=== PATIENT | female | born 1935 | race Caucasian/White ===

== ENCOUNTER 2016-09-10 10:28 | Outpatient (CLI) | payer MEDICARE, BC | END 2016-09-10 10:29 | disposition home or self-care (01) | DX: Z12.31 Encounter for screening mammogram for malignant neoplasm of breast (principal); Z85.3 Personal history of malignant neoplasm of breast; Z90.12 Acquired absence of left breast and nipple ==

== ENCOUNTER 2017-06-26 08:51 | Outpatient (CLI) | payer MEDICARE, BC | END 2017-06-26 08:52 | disposition home or self-care (01) | LOC: LAB 08:51 | PROVIDERS: ATTEND Physician Assistant Medical | DX: L29.8 Other pruritus (principal); R21 Rash and other nonspecific skin eruption ==

== ENCOUNTER 2017-07-01 08:51 | Outpatient (CLI) | payer MEDICARE, BC ==
--- NOTE | 2017-07-01 09:42 | XRAY Report ---
EXAM: CHEST RADIOGRAPHY EXAM DATE: 07/01/2017 09:21 AM. CLINICAL HISTORY: HISTORY OF BREAST AND BLADDER CA. COMPARISON: None. TECHNIQUE: 2 views. FINDINGS: There are pulmonary cystic changes diffusely. There are chronic appearing interstitial changes. No fo denisha pulmonary parenchymal is seen. No pneumothorax or pleural effusion. Mediastinum appears unremarka ble, apart from calcification and tortuosity of the thoracic aorta. IMPRESSION: COPD and chronic appearing interstitial changes. [facility] Referring Provider Line: [phone] SITE ID: [id number]
--- NOTE | 2017-07-01 09:56 | XRAY Report ---
EXAM: ABDOMEN RADIOGRAPHY EXAM DATE: 07/01/2017 09:21 AM. CLINICAL HISTORY: HISTORY OF BREAST AND BLADDER CA. COMPARISON: None. TECHNIQUE: 1 view. FINDINGS: Bowel Gas Pattern: Within normal limits. No dilated loops. Other: Calcifications overlie the left so as an right pelvis. Nonspecific, but cannot exclude urologi c calcifications. IMPRESSION: Cannot exclude urologic calcifications. Otherwise no acute findings. [facility] Referring Provider Line: [phone] SITE ID: [id number]
== END 2017-07-01 08:52 | disposition home or self-care (01) ==
LOC: DI 08:51
PROVIDERS: ATTEND Physician Assistant Medical
DX: Z85.3 Personal history of malignant neoplasm of breast (principal); Z85.51 Personal history of malignant neoplasm of bladder; J44.9 Chronic obstructive pulmonary disease, unspecified; R91.8 Other nonspecific abnormal finding of lung field
CPT/HCPCS: 71020; 74000

== ENCOUNTER 2017-10-20 10:46 | Outpatient (CLI) | payer MEDICARE, BC ==
--- NOTE | 2017-10-21 12:49 | Mammography Report ---
DIGITAL SCREENING MAMMOGRAM: 10/20/2017 INDICATION: An 82-year-old with personal history of left breast cancer, status post mastectomy, family history of breast cancer. TECHNIQUE: Right CC and MLO views were obtained. COMPARISON: 09/2016, 08/2015, 08/2014, 08/2013, 08/2012, 08/2011, 05/2010. FINDINGS: The right breast again demonstrates scattered fibroglandular densities. Coarse and punctate, typically benign calcifications are present. No suspicious masses, clustered microcalcifications, or regions of architectural distortion are identified. IMPRESSION: BENIGN FINDINGS. RECOMMENDATION: Routine annual screening unless otherwise clinically indicated. BIRADS CATEGORY 2 - BENIGN FINDINGS. STANDARD QUALIFYING STATEMENTS: 1. This examination was reviewed with the aid of Computer-Aided Detection (CAD). 2. A negative or benign imaging report should not delay biopsy if clinically suspicious findings are present. Consider surgical consultation if warranted. More than 5% of cancers are not identified by imaging. 3. Dense breasts may obscure an underlying neoplasm. TD: 10/21/2017 12:48
== END 2017-10-20 10:47 | disposition home or self-care (01) ==
LOC: DI 10:46
PROVIDERS: ATTEND Family Medicine
DX: Z12.31 Encounter for screening mammogram for malignant neoplasm of breast (principal); Z85.3 Personal history of malignant neoplasm of breast; Z80.3 Family history of malignant neoplasm of breast; Z90.12 Acquired absence of left breast and nipple

== ENCOUNTER 2020-07-17 14:19 | Outpatient (CLI) | payer MEDICARE, BC ==
--- OUTSIDE RECORDS SUMMARY | 2020-07-24 00:54 | EXTERNAL MEDICAL SUMMARY RPT | Continuity of Care Document ---
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 2013-08-31 15:05 SCRN MAMMO-HIGH RISK PT, MALIGNANT [facility] NEOPLASM OF BREAST 2014-09-05 16:12 HX OF BREAST MALIGNANCY [facility] 2014-09-05 16:12 ACQUIRED ABSENCE OF BREAST AND [facility] NIPPLE 2014-09-05 16:12 SCRN MAMMO-HIGH RISK PT, MALIGNANT [facility] NEOPLASM OF BREAST 2015-09-09 11:35 ENCNTR SCREEN MAMMOGRAM FOR [facility] MALIGNANT NEOPLASM OF BREAST 2015-09-09 11:35 FAMILY HISTORY OF MALIGNANT [facility] NEOPLASM OF BREAST 2015-09-09 11:35 ACQUIRED ABSENCE OF LEFT BREAST [facility] AND NIPPLE 2016-09-10 10:28 ENCNTR SCREEN MAMMOGRAM FOR [facility] MALIGNANT NEOPLASM OF BREAST 2016-09-10 10:28 PERSONAL HISTORY OF MALIGNANT [facility] NEOPLASM OF BREAST 2016-09-10 10:28 ACQUIRED ABSENCE OF LEFT BREAST [facility] AND NIPPLE 2017-06-26 08:51 OTHER PRURITUS [facility] 2017-06-26 08:51 RASH AND OTHER NONSPECIFIC SKIN [facility] ERUPTION 2017-07-01 08:51 CHRONIC OBSTRUCTIVE PULMONARY [facility] DISEASE, UNSPECIFIED 2017-07-01 08:51 OTHER NONSPECIFIC ABNORMAL FINDING [facility] OF LUNG FIELD 2017-07-01 08:51 PERSONAL HISTORY OF MALIGNANT [facility] NEOPLASM OF BREAST 2017-07-01 08:51 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 2017-10-20 10:46 ENCNTR SCREEN MAMMOGRAM FOR [facility] MALIGNANT NEOPLASM OF BREAST 2017-10-20 10:46 FAMILY HISTORY OF MALIGNANT [facility] NEOPLASM OF BREAST 2017-10-20 10:46 PERSONAL HISTORY OF MALIGNANT [facility] NEOPLASM OF BREAST 2017-10-20 10:46 ACQUIRED ABSENCE OF LEFT BREAST [facility] AND NIPPLE 2020-05-21 10:34 [facility], [facility] 2020-05-21 10:34 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], [facility]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 10:34 Other eosinophilia [facility] 2020-05-21 10:34 Interstitial pulmonary disease, [facility] 2020-05-28 08:54 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], [facility] unspecified 2020-05-28 08:54 Interstitial pulmonary disease, [facility] 2020-05-28 08:54 [facility] 2020-06-11 09:40 Eosinophilia, [facility] 2020-06-11 09:40 Other eosinophilia [facility] 2020-06-11 09:40 [facility] Allergies date description facility NO KNOWN ENVIRONMENTAL ALLERGIES [facility] CONTRAST MEDIUM [facility] Medic al [place] DOXYCYCLINE [facility] Center SULFA (SULFONAMIDE ANTIBIOTICS) [facility] NO ALLERGY INFORMATION AVAILABLE [facility] OPIOIDS - MORPHINE ANALOGUES [facility] NO KNOWN ALLERGIES [facility] Medic al Center CODEINE [facility] Center CLINDAMYCIN [facility] Medic al [place] AMOXICILLIN [facility] Center iodine [facility] Center latex [facility] Medic [facility] NO KNOWN ENVIRONMENTAL ALLERGIES [facility] SULFA ANTIBIOTICS [facility] Medic al [place] NO ALLERGY INFORMATION ON FILE [facility] IBUPROFEN [facility] Center PENICILLIN [facility] al Center SULFA (SULFONAMIDE ANTIBIOTICS) [facility] NO KNOWN ALLERGIES [facility] CODEINE [facility] HYDROCODONE [facility] DOXYCYCLINE [facility] DAPSONE [facility] CEFTRIAXONE [facility] LATEX [facility] Penicillins [facility] iodine [facility] tramadol [facility] latex [facility] Results Social History date description facility [id number]
== END 2020-07-17 14:20 | disposition critical access hospital (66) ==
LOC: EMS 14:19
PROVIDERS: ATTEND Surgery
DX: M25.551 Pain in right hip (principal)
CPT/HCPCS: A0425; A0427

== ENCOUNTER 2020-07-17 14:36 | Inpatient (IN) | payer MEDICARE, BC ==
--- NOTE | 2020-07-17 14:44 | ED Physician Documentation ---
PD HPI LOWER EXT INJURY - Stated complaint Stated Complaint: FALL - History obtained from History obtained from: Patient - Additional information Additional information: 85-year-old woman with a history of skin condition and a 5 cm AAA yet to be addressed who had gotten a new car and she was out in the parking lot at [facility] and looking under the car and then she thinks she tripped over her feet and landed on her right side. She has pain in the area of the right hip and pelvis down to the knee. But declines further pain medication on arrival as she had 50 mcg of fentanyl on the way in. She is sure she did not hit her head or hurt her neck. 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 - Present Medications Home Medications: Ambulatory Orders Medication Instructions Recorded Confirmed Aspirin [Aspirin EC] 81 mg PO DAILY 07/17/20 07/17/20 - Allergies Allergies/Adverse Reactions: Allergies Allergy/AdvReac Type Severity Reaction Status Date / Time iodine AdvReac Itching Verified 07/17/20 15:08 latex AdvReac Rash Unverified 12/18/14 12:40 PD ED PE NORMAL - Vitals Vital signs reviewed: Yes - General General: Alert and oriented X 3, No acute distress - HEENT HEENT: PERRL, EOMI - Neck Neck: Supple, no meningeal sign, No bony TTP - Cardiac Cardiac: RRR, No murmur - Respiratory Respiratory: No respiratory distress, Clear bilaterally - Abdomen Abdomen: Non tender - Back Back: No CVA TTP, No spinal TTP - Derm Derm: Normal color, Warm and dry - Extremities Extremities: No edema, No calf tenderness / cord, Other (The right leg is shortened, holding it slightly flexed and externally rotated. Gentle internal rotation results in pain in the groin.) - Neuro Neuro: Alert and oriented X 3, Normal speech - Psych Psych: Normal mood, Normal affect Results - Vitals Vitals: Vital Signs - 24 hr 07/17/20 07/17/20 07/17/20 14:39 15:04 15:24 Temperature 37.0 C Heart Rate 79 72 78 Respiratory 16 16 20 Rate Blood Pressure 217/81 H 172/93 H 170/74 H O2 Saturation 98 96 96 Oxygen O2 Source Room air - EKG (time done) 1508 Rate: Rate (enter#) (72) Rhythm: NSR [place]: Normal Intervals: Normal NH QRS: LVH Ischemia: Normal ST segments Computer interpretation: Agree with computer - Labs Labs: Laboratory Tests 07/17/20 07/17/20 15:17 15:17 WBC 11.6 H RBC 4.38 Hgb 12.4 Hct 40.5 MCV 92.5 MCH 28.3 MCHC 30.6 L RDW 13.3 Plt Count 211 MPV 9.6 Manual Slide Review Indicated Sodium 137 Potassium 4.1 Chloride 104 Carbon Dioxide 25 Anion Gap 8.0 BUN 29 H Creatinine 0.9 Estimated GFR (MDRD) 60 L Glucose 108 H Calcium 9.2 PD MEDICAL DECISION MAKING - ED course ED course: 85-year-old woman with history of known AAA not yet surgically addressed with history of hypertension as well who tripped over her own feet with an isolated right hip injury. [employer] respiratory panel ordered to rapidly test specifically for COVID-19 in this patient who is expected to be hospitalized She had a trip and fall onto the right hip and has a right intertrochanteric fracture. By history and physical is is an isolated injury. She has a history of a AAA and I discussed the case with Cezar Basilio our WAREHOUSE LOGISTICS MANAGER by phone who does not feel like that would create a reason that she could not have surgery here. Also discussed the case by phone with Dr. Walter Bearden the orthopedist who would like her n.p.o. after midnight to have fixation tomorrow and finally with Dr. Del Valle at 3:58 PM for admission. Departure - Departure Disposition: [facility] DC/Xfer Clinical Impression: Fracture, intertrochanteric, right femur Condition: Serious
[2020-07-17] MEDS ORDERED: METOPROLOL TARTRATE 50 MG TABLET PO STA (14:59)
[2020-07-17] MEDS ORDERED: lisinopriL 5 MG TABLET PO STA (14:59)
[2020-07-17 15:26] LABS: BASOPHILS # (AUTO) 0.1 10^3/uL (0.0-0.1); BASOPHILS % (AUTO) 0.6 %; EOSINOPHILS # (AUTO) 1.8 10^3/uL (0.0-0.7); EOSINOPHILS % (AUTO) 15.7 %; HGB - HEMOGLOBIN 12.4 g/dL (12.0-16.0); LYMPHOCYTES % (AUTO) 8.3 %; MEAN CORPUSCULAR HEMOGLOBIN 28.3 pg (27.0-31.0); MEAN CORPUSCULAR HGB CONC 30.6 g/dL (32.0-36.0); MEAN CORPUSCULAR VOLUME 92.5 fL (81.0-99.0); MEAN PLATELET VOLUME 9.6 fL (7.9-10.8); MONOCYTES # (AUTO) 0.9 10^3/uL (0.0-1.0); MONOCYTES % (AUTO) 7.3 %; NEUTROPHILS # (AUTO) 7.9 10^3/uL (1.5-6.6); NEUTROPHILS % (AUTO) 67.5 %; PLT - PLATELET COUNT 211 10^3/uL (130-450); RED BLOOD COUNT 4.38 10^6/uL (4.20-5.40); RED CELL DISTRIBUTION WIDTH 13.3 % (12.0-15.0); WHITE BLOOD COUNT 11.6 x10^3/uL (4.8-10.8)
--- NOTE | 2020-07-17 15:32 | XRAY Report ---
PROCEDURE: Femur 2V RT INDICATIONS: hip inj TECHNIQUE: views of the femur were acquired. COMPARISON: None. FINDINGS: Bones: No dislocations. No suspicious bony lesions. There is a intertrochanteric right hip fracture , with the proximal femur elevated along the fracture plane and with mild displacement of the lesser trochanteric fracture fragment medially by approximately 7 mm. Soft tissues: No suspicious soft tissue calcifications or masses. IMPRESSION: Acute moderately displaced intertrochanteric right hip fracture. No knee joint trauma is found but th ere is medial compartment moderate knee joint osteoarthritis. Reviewed by: Johann Zuleta MD on 07/17/2020 3:31 PM PST Approved by: Johann Zuleta MD on 07/17/2020 3:31 PM PST Station ID: [id number]
--- NOTE | 2020-07-17 15:36 | XRAY Report ---
PROCEDURE: Hip w/Pelvis 2-3V RT INDICATIONS: hip inj TECHNIQUE: AP pelvis with lateral view(s) of the unilateral right hip(s). COMPARISON: None. FINDINGS: Bones: No dislocations. Pelvic ring appears intact. No suspicious bony lesions. There is a inter trochanteric superiorly subluxed mildly displaced right hip fracture, without trauma to the pelvis el sewhere. Soft tissues: The visualized bowel gas pattern is normal. . There is a thin band of calcification p ossibly representing aortic aneurysm, seen to the left of midline. IMPRESSION: The intertrochanteric acute right hip fracture has been previously identified. The thin band of calcification unusually leftward from the spine raises concern for significant size mid to di stal abdominal aortic aneurysm. Follow-up by ultrasound through this area to assess for aneurysm appe ars warranted. Reviewed by: Johann Zuleta MD on 07/17/2020 3:35 PM PST Approved by: Johann Zuleta MD on 07/17/2020 3:35 PM PST Station ID: [id number]
[2020-07-17 15:41] LABS: CALCIUM 9.2 mg/dL (8.5-10.3); CREATININE 0.9 mg/dL (0.4-1.0)
[2020-07-17] MEDS ORDERED: ONDANSETRON 4 MG/2 ML VIAL IVP PRN (15:58)
[2020-07-17] MEDS ORDERED: SODIUM CHLORIDE FLUSH 0.9% 10 ML SYRINGE IVP PRN (15:58)
[2020-07-17] MEDS ORDERED: ONDANSETRON ODT 4 MG TABLET TL PRN (15:58)
[2020-07-17] MEDS ORDERED: PROCHLORPERAZINE 10 MG/2 ML VIAL IVP PRN (15:58)
[2020-07-17] MEDS ORDERED: MORPHINE 2 MG/ML CARPUJECT IVP PRN (15:58)
[2020-07-17 16:00] LABS: INR 1.1 (0.8-1.2); PT - PROTHROMBIN TIME 12.4 secs (9.9-12.6)
[2020-07-17 16:12] LABS: C. PNEUMONIAE- RESP PCR PANEL NOT DETECTED
[2020-07-17 16:23] LABS: DIFFERENTIAL COMMENT MANUAL=AUTO DIFF; PLATELET ESTIMATE, MANUAL NORMAL (130-450,000) (NORMAL); PLATELET MORPHOLOGY NORMAL APPEARANCE (NORMAL); RBC MORPHOLOGY (MULTIPLE) NORMAL APPEARANCE (NORMAL)
[2020-07-17] MEDS ORDERED: SODIUM CHLORIDE 0.9% 10 ML ONE (16:35)
[2020-07-17] MEDS ORDERED: ROPIVACAINE 0.5% PF 20 ML AMPULE ONE (16:35)
--- NOTE | 2020-07-17 17:06 | CONSULTATION NOTE ---
Consultation Report: Consultation for 85yo female s/p fall resulting in R hip fx. Pt found to be in mild 2/10 pain at rest, approaching 10/10 with movement. Pain control options discussed with pt including R Fascia Illiaca Block. Pt ID'd and consent obtained for peripheral nerve block and anesthetics to follow tomorrow. Pt supine, R groin prepped with chlorhexidine. US used to place 10cc 0.33%@R femoral nerve and 20cc @R fascia illaca plane. Pt states pain 0/10 at rest after 15 mins. Pt also tolerated a joyce catheter placement attempt during this time without complaint.
--- NOTE | 2020-07-17 17:09 | HISTORY & PHYSICAL EXAMINATION ---
Chief Complaint - Chief Complaint Chief Complaint: fall History of Present Illness - Admitted From Admitted From:: ER - History Obtained From Records Reviewed: [facility] History obtained from: pt Exam Limitations: no - History of Present Illness HPI Comment/Other: This is a 85-year-old woman with a Past medical history of skin rash with consisting itching, Hypertension, AAA not yet surgically addressed yet, she has plan to image study in 07/26/20 to followup with her surgeon, Who present to ER for evaluation of her fall. Patient reported she brought a new car. she park her car in the parking lot of [employer] and looking around with the car. she believe she tripped over her feet and landed on her right side. She denies any other injury. She denies loss of conscious when she had a fall. she Reported she does not hit his head or neck. She reported she has pain in the area of the right hip, and pain was down to the knee. X-ray of the hip show right intertrochanteric fracture. ER provider discussed the case with OIL AND GAS EXPLORATION TECHNICIAN who think we can go ahead to have surgery for pt. ER provider discussed the case by phone with Dr. Walter Bearden, who would like pt has n.p.o. after midnight and have fixation on tomorrow. Patient COVID-19 test was negative. Routine laboratory tests show slightly elevated WBC, Likely reactive, INR is 1.1. Patient is afebrile, patient had elevated blood pressure. Patient was given lisinopril and metoprolol blood pressure in the ER. pt denies fever, chill, chest pain, shortness of breath, abdominal pain, headache pain. We will admit this patient and plan surgery on tomorrow. 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 Her mother at age 50 from cancer. Social History Notes: Patient denies history of cigarette smoking, alcohol or drug issue. Patient is living at [place], She has 4 daughter. - POLST Patient has POLST: No Meds/Allgy - Home Medications Home Medications: Ambulatory Orders Medication Instructions Recorded Confirmed Aspirin [Aspirin EC] 81 mg PO DAILY 07/17/20 07/17/20 Gabapentin [Neurontin] 07/17/20 Losartan Potassium 25 mg PO DAILY 07/17/20 Metoprolol Succinate [Toprol Xl] 07/17/20 Omeprazole [PriLOSEC] 20 mg PO DAILY 07/17/20 hydrOXYzine HCL [Hydroxyzine HCl] 25 mg PO TID PRN 07/17/20 - Allergies Allergies/Adverse Reactions: Allergies Allergy/AdvReac Type Severity Reaction Status Date / Time iodine AdvReac Itching Verified 07/17/20 17:12 latex AdvReac Rash Unverified 07/17/20 17:12 Review of Systems - Constitutional Constitutional: denies: Fatigue, Fever, Chills, Weakness, Poor appetite, Diaphoresis - Eyes Eyes: denies: Pain, Blurred vision, Field loss, Vision loss - Ears, Nose & Throat Ears, Nose & Throat: denies: Ear pain, Tinnitus, Vertigo, Nosebleeds, Mouth lesions, Bleeding gums - Cardiovascular Cariovascular: denies: Irregular heart rate, Palpitations, Chest pain, Edema, Lightheadedness, Syncope, Exertional dyspnea, Decr. exercise tolerance - Respiratory Respiratory: denies: Cough, Sputum production, Wheezing, Hemoptysis, Orthopnea, SOB at rest, SOB with exertion - Gastrointestinal Gastrointestinal: denies: Abdominal pain, Constipation, Diarrhea, Rectal bleeding, Black stools, Bloody stools, Nausea, Vomiting, Coffee grounds emesis - Genitourinary Genitourinary: denies: Dysuria, Urgency, Incontinence - Musculoskeletal Musculoskeletal: denies: Muscle pain, Muscle aches - Integumentary Integumentary: denies: Rash, Lesions, Lumps - Neurological Neurological: denies: General weakness, Focal weakness, Headache, Dizziness, Numbness, Memory problems, Pre-existing deficit, Abnormal gait, Seizures, Incoordination, Slurred speech - Psychiatric Psychiatric: denies: Depression, Suicidal, Delusions - Endocrine Endocrine: denies: Polyuria, Polyphagia - Hematologic/Lymphatic Hematologic/Lymphatic: denies: Anemia, Petechiae, Blood clots Prior Level of Functionality: Patient is a totally independent and full function Before admission Exam - Vital Signs Vital Signs: Vital Signs x48h Temp Pulse Resp BP Pulse Ox 07/17/20 16:30 60 24 169/76 H 94 07/17/20 15:24 78 20 170/74 H 96 07/17/20 15:04 72 16 172/93 H 96 07/17/20 14:39 37.0 C 79 16 217/81 H 98 - Physical Exam General Appearance: positive: No acute distress, Alert. negative: Lethargic Eyes Bilateral: positive: Normal inspection, PERRL, No lid inflammation ENT: positive: ENT inspection nml, No signs of dehydration. negative: Purulent nasal drainage Neck: positive: Nml inspection, Trachea midline. negative: Thyromegaly, Tracheal deviation Respiratory: positive: Chest non-tender, No respiratory distress, Breath sounds nml. negative: Wheezes, Rales, Rhonchi Cardiovascular: positive: Regular rate & rhythm, Systolic murmur, Diastolic murmur. negative: No murmur, Tachycardia, Bradycardia Peripheral Pulses: positive: 2+ Abdomen: positive: Non-tender, Nml bowel sounds, No distention. negative: Tenderness, Guarding, Rebound Back: positive: Nml inspection. negative: CVA tenderness (R), CVA tenderness (L) Skin: positive: Color nml, Skin rash. negative: Warm, Dry, Cyanosis, Diaphoresis, Pallor Extremities: negative: Non-tender, Nml appearance, Pedal edema, Calf tenderness Neurologic/Psychiatric: positive: Oriented x3, Sensation nml, Mood/affect nml. negative: Weakness, Sensory loss, Facial droop, Slurred/abnml speech, Depressed mood/affect Sepsis Event Note (H) - Evaluation Current Stage of Sepsis: Ruled out Conclusion/Plan - Problem List (1) Fracture, intertrochanteric, right femur Conclusion/Plan: Patient had a mechanical fall, X-ray show right intertrochanteric fracture. Surgeon was consulted and plan to have surgery for patient on tomorrow. NPO after midnight, continue intravenous IV fluids, DVT prophylaxis is dependent on surgeon, Continue pain control (2) Pre-op evaluation Conclusion/Plan: Patient denies cardiac history, denies CVA, CHF or MD before. 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 she will have evaluation in this . ER provider called MUSIC VIDEO DIRECTOR and he believe we can continue Operation. In the physical examination, I found the patient had systolic murmur. EKG show sinus rhythm. We will do echo study before surgery. Revised cardiac risk index of Gabe criteria 0.4%, Low risk. (3) Heart murmur, systolic Conclusion/Plan: examination of Patient show heart murmur systolic. Patient denies any cardiac medical history. We will have echo study before surgery. (4) HTN (hypertension) Conclusion/Plan: Patient has elevated blood pressure. 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 She also report skin rash with itching. She is followed up by dermatology now. (6) History of abdominal aortic aneurysm (AAA) Conclusion/Plan: Patient reported she has a history AAA 5 cm, She was followed up by her vascular surgeon, she will have imaging study in this . She denies any abdominal pain or chest pain, Or back pain At this point. Advised patient follow-up with her vascular surgeon continue management - Lab Results Fish Bones: 07/17/20 15:17 07/17/20 15:17 Core Measures - Anticipated LOS I expect patient to be DC'd or transferred within 96 hours.: Yes - DVT/VTE - Prophylaxis VTE/DVT Device ordered at admit?: Yes VTE/DVT Prophylaxis med ordered at admit?: Yes
--- NOTE | 2020-07-17 17:10 | ANESTHESIA ---
Pre-Anesthesia VS, & Labs - Diagnosis R hip fx, intertrochanteric - Procedure R hip ORIF, short nail Vital Signs: Temp Pulse Resp BP Pulse Ox 37.0 C 60 24 169/76 H 94 07/17/20 14:39 07/17/20 16:30 07/17/20 16:30 07/17/20 16:30 07/17/20 16:30 Height: 5 ft 4 in Weight (kg): 53.977 kg Body Mass Index: 20.4 BMI Classification: Healthy weight - NPO >8 hours - Is Patient ?: No - Lab Results Current Lab Results: Laboratory Tests 07/17/20 15:38: Blood Type A POSITIVE, Antibody Screen NEGATIVE 07/17/20 15:17: Blood Type Recheck A POSITIVE 07/17/20 15:17: Sodium 137, Potassium 4.1, Chloride 104, Carbon Dioxide 25, Anion Gap 8.0, BUN 29 H, Creatinine 0.9, Estimated GFR (MDRD) 60 L, Glucose 108 H, Calcium 9.2 07/17/20 15:17: PT 12.4, INR 1.1 07/17/20 15:17: WBC 11.6 H, RBC 4.38, Hgb 12.4, Hct 40.5, MCV 92.5, MCH 28.3, MCHC 30.6 L, RDW 13.3, Plt Count 211, MPV 9.6, Neut # (Auto) 7.9 H, Lymph # (Auto) 1.0 L, Citrus # (Auto) 0.9, Eos # (Auto) 1.8 H, Baso # (Auto) 0.1, Absolute Nucleated RBC 0.00, Band Neuts % (Manual) Not Reportable, Abnorm Lymph % (Manual) Not Reportable, Nucleated RBC % 0.0, Neutrophils # (Manual) Not Reportable, Lymphocytes # (Manual) Not Reportable, Monocytes # (Manual) Not Reportable, Eosinophils # (Manual) Not Reportable, Basophils # (Manual) Not Reportable, Differential Comment MANUAL=AUTO DIFF, Manual Slide Review Indicated, Platelet Estimate NORMAL (130-450,000), Platelet Morphology NORMAL APPEARANCE, RBC Morph Micro Appear NORMAL APPEARANCE Lab results reviewed: Yes Fish Bones: 07/17/20 15:17 07/17/20 15:17 Home Medications and Allergies Home Medications: Ambulatory Orders Aspirin [Aspirin EC] 81 mg PO DAILY 07/17/20 Active Medications Acetaminophen (Acetaminophen 325 Mg Tablet) 650 mg PO Q4HR PRN PRN Reason: Pain 1 to 4 Lactated Ringer's (Lr) 1,000 mls @ 100 mls/hr IV .Q10H NELY Morphine Sulfate (Morphine 2 Mg/Ml Carpuject) 2 mg IVP Q2HR PRN PRN Reason: Pain 8 to 10 Ondansetron HCl (Ondansetron Odt 4 Mg Tablet) 4 mg TL Q6HR PRN PRN Reason: Nausea / Vomiting Ondansetron HCl (Ondansetron 4 Mg/2 Ml Vial) 4 mg IVP Q6HR PRN PRN Reason: Nausea / Vomiting Oxycodone HCl (Oxycodone 5 Mg Tablet) 5 mg PO Q4HR PRN PRN Reason: Pain 5 to 7 Prochlorperazine Edisylate (Prochlorperazine 10 Mg/2 Ml Vial) 10 mg IVP Q6HR PRN PRN Reason: Nausea / Vomiting Sodium Chloride (Sodium Chloride Flush 0.9% 10 Ml Syringe) 10 ml IVP PRN PRN PRN Reason: NEEDED PER PROVIDER ORDERS Sodium Chloride (Sodium Chloride Flush 0.9% 10 Ml Syringe) 10 ml IVP 0100,0900,1700 [facility] Aspirin [Aspirin EC] 81 mg PO DAILY 07/17/20 Allergies/Adverse Reactions: Allergies Allergy/AdvReac Type Severity Reaction Status Date / Time iodine AdvReac Itching Verified 07/17/20 16:13 latex AdvReac Rash Unverified 07/17/20 16:13 Anes History & Medical History - Anesthetic History Anesthesia Complications: reports: No previous complications Family history of Anesthesia Complications: Denies Family history of Malignant Hyperthermia: Denies - Medical History Cardiovascular: reports: Hypertension, Other (5cm AAA, known) Pulmonary: reports: None Musculoskeletal: reports: Osteoporosis Skin: reports: Eczema Smoking Status: Never smoker History of Cancer?: Yes (breast) Other Past Medical History: AAA - Surgical History Gynecologic: Mastectomy Results - EKG Results EKG Comparison: Reviewed EKG, Normal EKG (SR c LVH, no ST changes visible, no cardiac history) Exam General: Alert, Oriented x3, Cooperative Dental: WNL Mouth Openin Fingerbreadth Neck Mobility: Normal Mallampati classification: II Thyromental Distance: 4-6 cm Respiratory: Lungs clear, Normal breath sounds, No respiratory distress Cardiovascular: Regular rate Neurological: Normal speech Mental/Cognitive Status: Alert/Oriented X3, Normal for patient Cognitive Status: Within normal limits Plan Anesthesia Type: General, Spinal, Fascia Iliaca Block (placed in ER 07/17/20 7600) Regional Block: Per Surgeon's request for Post Op pain control Consent for Procedure(s) Verified and Reviewed: Yes Code Status: Attempt Resuscitation ASA classification: 3-Severe systemic disease Is this case an emergency?: No
[2020-07-17] MEDS: LACTATED RINGERS 1,000 ML IV SCH (18:15)
[2020-07-17] MEDS ORDERED: hydrALAZINE INJ 20 MG/ML VIAL IVP PRN (18:17)
[2020-07-17] MEDS: SODIUM CHLORIDE FLUSH 0.9% 10 ML SYRINGE IVP SCH (18:48)
--- NOTE | 2020-07-17 19:02 | PHARMACY PROGRESS NOTE ---
- Best Possible Medication History Admit Date and Time: 07/17/20 1558 Processed by: Pharmacy Medication History completed: Yes Patient Interview: Completed Secondary Source(s): Physician records, Pharmacy records, Insurance records (PATIENT INTERVIEWED BY PHARMACY. PATIENT'S DAUGHTER TAKES CARE OF HOME MEDICATIONS. DAUGHTER CONFIRMED HOME MEDICATIONS. PATIENT HAS NOT YET STARTED ON HYDROXYZINE NOR METHOTREXATE. PATIENT FINISHED PREDNISONE RX FOR ITCHING. ) As the person ultimately responsible for medication therapy, providers are able to order a medication from an existing home medication list in [facility] via the "Reconcile Routine" prior to Confirmation of that medication by windows desktop support. Such practice is discouraged except when the physician, in their clinical judgment, deems that a medical need exists for a medication without regard to previous use.
[2020-07-17] MEDS: oxyCODONE 5 MG TABLET PO PRN (21:55)
[2020-07-17] MEDS: diphenhydrAMINE ELIXIR 25 MG/10 ML UDC PO PRN (21:56)
[2020-07-18] MEDS: SODIUM CHLORIDE FLUSH 0.9% 10 ML SYRINGE IVP SCH ×3 (00:41→17:15)
[2020-07-18] MEDS: LACTATED RINGERS 1,000 ML IV SCH ×2 (04:07→13:07)
[2020-07-18 04:40] LABS: BASOPHILS % (AUTO) 0.5 %; EOSINOPHILS % (AUTO) 12.2 %; HGB - HEMOGLOBIN 9.8 g/dL (12.0-16.0); LYMPHOCYTES % (AUTO) 10.2 %; MEAN CORPUSCULAR HEMOGLOBIN 29.2 pg (27.0-31.0); MEAN CORPUSCULAR HGB CONC 31.7 g/dL (32.0-36.0); MONOCYTES % (AUTO) 9.7 %; NEUTROPHILS % (AUTO) 66.9 %; PLT - PLATELET COUNT 171 10^3/uL (130-450); RED BLOOD COUNT 3.36 10^6/uL (4.20-5.40); RED CELL DISTRIBUTION WIDTH 13.4 % (12.0-15.0); WHITE BLOOD COUNT 10.4 x10^3/uL (4.8-10.8)
[2020-07-18 04:47] LABS: ABNORMAL LYMPHS % (MANUAL) 0 %; BAND NEUTROPHILS % (MANUAL) 0 %
[2020-07-18 04:54] LABS: CALCIUM 8.3 mg/dL (8.5-10.3); CREATININE 0.8 mg/dL (0.4-1.0)
[2020-07-18 05:13] LABS: DIFFERENTIAL COMMENT MANUAL DIFFERENTIAL; EOSINOPHILS # (MANUAL) 0.8 10^3/uL (0-0.7); LYMPHOCYTES # (MANUAL) 1.5 10^3/uL (1.5-3.5); LYMPHOCYTES % (MANUAL) 14 %; MONOCYTES # (MANUAL) 0.3 10^3/uL (0.0-1.0); PLATELET ESTIMATE, MANUAL NORMAL (130-450,000) (NORMAL); RBC MORPHOLOGY (MULTIPLE) NORMAL APPEARANCE (NORMAL)
[2020-07-18] MEDS: oxyCODONE 5 MG TABLET PO PRN ×3 (08:08→22:36)
[2020-07-18 08:59] LABS: ABSOLUTE RETICS # AUTO 0.05 10^6/uL (0.020-0.110); RED BLOOD COUNT 3.57 10^6/uL (4.20-5.40)
[2020-07-18 09:19] LABS: % IRON SATURATION 15 % (20-50); IRON 46 ug/dL (28-170); TOTAL IRON BINDING CAPACITY 301 ug/dL (250-450); TRANSFERRIN 215 mg/dL (192-382)
[2020-07-18 09:45] LABS: FERRITIN 147.9 ng/mL (11.0-306.8)
[2020-07-18] MEDS ORDERED: ceFAZolin 2 GM/50 ML BAG IV STA (14:07)
--- NOTE | 2020-07-18 14:18 | CONSULTATION NOTE ---
DATE OF SERVICE: 07/18/2020 Physician: Walter Bearden MD REFERRING PHYSICIAN: Dominick White MD, of the emergency room department. CHIEF COMPLAINT: "My right hip aches." HISTORY OF PRESENT ILLNESS: The patient is an 85-year-old female who apparently tripped in the parking lot on the day of her admission, landing on her right side. She landed onto a hard conc rete surface. She noted immediate pain to her right hip area and was unable to stand or weight bear on this right side. She was taken by ambulance to the emergency room here at [facility]. Her x-ray as part of her workup showed a right intertrochanteric hip fracture. The patient had n o loss of consciousness, nausea, vomiting, or other injuries noted. No distal weakness or numbness w as noted by her. PHYSICAL EXAMINATION: The patient's right hip showed some mild swelling, but no bruising present. F ocal tenderness over the lateral aspect of her right hip. Painful range of motion of the hip was not ed. Right leg was slightly shortened with minimal malrotation noted. The patient is able to activel y move her toes and ankle. Sensation intact throughout the foot. Good capillary filling noted in th e toes as well. X-RAYS: X-rays of the pelvic and hip area showed evidence of an intertrochanteric right hip fracture . ASSESSMENT 1. Closed right intertrochanteric hip fracture. 2. History of an aortic abdominal aneurysm. 3. History of hypertension. PLAN: Patient has been evaluated by the medical service, who feels she is stable enough to proceed w ith surgical intervention. I talked at length with the patient about her diagnosis and treatment opt ions. We recommend proceeding with a short intertrochanteric InterTan nailing of her right hip fract ure. This will be done later this afternoon. Risks and benefits of surgery were explained to the pa tienigel, which include anesthesia risks, infection, blood loss, nerve damage, malunion, nonunion, deep venous thrombosis, etc. Patient appears to understand these potential complications. We answered al nabil her questions today. She wishes to proceed with surgery as indicated. Her leg has been marked. C onsent has been signed. TD: 07/18/2020 14:03
[2020-07-18] MEDS ORDERED: BUPIVACAINE 0.5%-EPI 1:200000 PF 30 ML VIAL SUBQ ONE (15:01)
[2020-07-18] MEDS ORDERED: BUPIVACAINE 0.5%-EPI 1:200000 PF 30 ML VIAL ONE (15:10)
[2020-07-18] MEDS ORDERED: PROPOFOL 500 MG/50 ML 500 MG/50 ML VIAL ONE (15:17)
[2020-07-18] MEDS ORDERED: MIDAZOLAM 2 MG/2 ML VIAL ONE (15:17)
--- NOTE | 2020-07-18 15:22 | PROVIDER PROGRESS NOTE ---
Assessment/Plan - Problem List (1) Fracture, intertrochanteric, right femur Assessment/Plan: 07/18 Patient is planning to have surgery on this afternoon, We will follow-up after surgery Patient had a mechanical fall, X-ray show right intertrochanteric fracture. Surgeon was consulted and plan to have surgery for patient on tomorrow. NPO after midnight, continue intravenous IV fluids, DVT prophylaxis is dependent on surgeon, Continue pain control (2) Pre-op evaluation Conclusion/Plan: 07/18 Call surgeon and report patient's echo study result, Which show no aortic stenosis, normal EF, moderate pulmonary hypertension RVSP 57 mmHG. Mild tricuspid regurgitation. Patient denies cardiac history, denies CVA, CHF or HI before. 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 she will have evaluation in this . ER provider called [employer] and he believe we can continue Operation. In the physical examination, I found the patient had systolic murmur. EKG show sinus rhythm. We will do echo study before surgery. Revised cardiac risk index of Gaeb criteria 0.4%, Low risk. (3) Heart murmur, systolic Conclusion/Plan: 07/18 echo study result, Which show no aortic stenosis, normal EF, moderate p ulmonary hypertension RVSP 57 mmHG, Mild tricuspid regurgitation. examination of Patient show heart murmur systolic. Patient denies any cardiac medical history. We will have echo study before surgery. (4) HTN (hypertension) Conclusion/Plan: Patient has elevated blood pressure. 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 She also report skin rash with itching. She is followed up by dermatology now. (6) History of abdominal aortic aneurysm (AAA) Conclusion/Plan: Patient reported she has a history AAA 5 cm, She was followed up by her vascular surgeon, she will have imaging study in this . She denies any abdominal pain or chest pain, Or back pain At this point. Advised patient fo llow-up with her vascular surgeon continue management - Current Meds Current Meds: Current Medications Generic Name Dose Route Start Last Admin Trade Name Freq PRN Reason Stop Dose Admin Diphenhydramine HCl 12.5 mg 07/17/20 20:49 07/17/20 21:56 Diphenhydramine Elixir 25 Mg/10 Ml Udc PO 12.5 mg Q6HR PRN Administration ITCHING Lactated Ringer's 1,000 mls @ 100 mls/hr 07/17/20 16:00 07/18/20 13:07 Lr IV 100 mls/hr .Q10H NELY Administration Oxycodone HCl 5 mg 07/17/20 15:58 07/18/20 08:08 Oxycodone 5 Mg Tablet PO 5 mg Q4HR PRN Administration Pain 5 to 7 Sodium Chloride 10 ml 07/17/20 17:00 07/18/20 08:11 Sodium Chloride Flush 0.9% 10 Ml Syringe IVP Not Given 0100,0900,1700 NELY - Lab Result Fish Bone Diagrams: 07/18/20 04:00 07/18/20 04:00 - Additional Planning My Orders: My Active Orders 07/17/20 18:05 Echo Transthoracic Complete [ECHO] Stat 07/17/20 18:17 hydrALAZINE INJ [Apresoline Inj] 10 mg IVP QID PRN 07/19/20 05:00 BMP - BASIC METABOLIC PANEL [CHEM] DAILYLAB CBC - COMP BLD CT W/AUTO DIFF [HEME] DAILYLAB 07/20/20 05:00 BMP - BASIC METABOLIC PANEL [CHEM] DAILYLAB CBC - COMP BLD CT W/AUTO DIFF [HEME] DAILYLAB 07/21/20 05:00 BMP - BASIC METABOLIC PANEL [CHEM] DAILYLAB CBC - COMP BLD CT W/AUTO DIFF [HEME] DAILYLAB 07/22/20 05:00 BMP - BASIC METABOLIC PANEL [CHEM] DAILYLAB CBC - COMP BLD CT W/AUTO DIFF [HEME] DAILYLAB Subjective - Subjective Patient Reports: Feeling Better Objective Vital Signs: Vital Signs - 24 hr 07/17/20 07/17/20 07/17/20 15:24 16:30 17:30 Temperature 36.7 C Heart Rate 78 60 Heart Rate [ 77 Brachial] Respiratory 20 24 18 Rate Blood Pressure 170/74 H 169/76 H Blood Pressure 121/84 H [Left Brachial artery] Blood Pressure [Left Radial artery] O2 Saturation 96 94 94 07/18/20 07/18/20 00:00 08:00 Temperature 36.7 C 99 C H Heart Rate Heart Rate [ 63 63 Brachial] Respiratory 18 20 Rate Blood Pressure Blood Pressure [Left Brachial artery] Blood Pressure 108/43 L 129/49 L [Left Radial artery] O2 Saturation 95 99 Oxygen O2 Source Room air I&O (Last 24 Hrs): Intake and Output Totals x24h 07/16/20 07/17/20 07/18/20 23:59 23:59 23:59 Intake Total 400 1886.667 Output Total 500 1450 Balance -100 436.667 General: Alert, Oriented x3, Cooperative, No acute distress HEENT: Atraumatic Neck: Supple Lymphatic: no adenopathy Neuro: Alert, Non Focal, Oriented Times 3 Cardiovascular: Regular rate, Normal S1, Normal S2 Respiratory: Chest non-tender, No respiratory distress, Breath sounds nml Abdomen: Normal bowel sounds, Soft, No tenderness Extremities: Normal pulses - Results Results: Laboratory Results WBC 10.4 x10^3/uL (4.8-10.8) 07/18/20 04:00 RBC 3.57 10^6/uL (4.20-5.40) L 07/18/20 08:50 Hgb 9.8 g/dL (12.0-16.0) L 07/18/20 04:00 Hct 30.9 % (37.0-47.0) L 07/18/20 04:00 MCV 92.0 fL (81.0-99.0) 07/18/20 04:00 MCH 29.2 pg (27.0-31.0) 07/18/20 04:00 MCHC 31.7 g/dL (32.0-36.0) L 07/18/20 04:00 RDW 13.4 % (12.0-15.0) 07/18/20 04:00 Plt Count 171 10^3/uL (130-450) 07/18/20 04:00 MPV 10.0 fL (7.9-10.8) 07/18/20 04:00 Reticulocyte % (Auto) 1.40 % (0.5-2.3) 07/18/20 08:50 Neut # (Auto) Not Reportable 07/18/20 04:00 Lymph # (Auto) Not Reportable 07/18/20 04:00 Gibson # (Auto) Not Reportable 07/18/20 04:00 Eos # (Auto) Not Reportable 07/18/20 04:00 Baso # (Auto) Not Reportable 07/18/20 04:00 Absolute Nucleated RBC Not Reportable 07/18/20 04:00 Total Counted 100 07/18/20 04:00 Band Neuts % (Manual) 0 % (0-10) 07/18/20 04:00 Abnorm Lymph % (Manual) 0 % 07/18/20 04:00 Nucleated RBC % Not Reportable 07/18/20 04:00 Neutrophils # (Manual) 7.8 10^3/uL (1.5-6.6) H 07/18/20 04:00 Lymphocytes # (Manual) 1.5 10^3/uL (1.5-3.5) 07/18/20 04:00 Monocytes # (Manual) 0.3 10^3/uL (0.0-1.0) 07/18/20 04:00 Eosinophils # (Manual) 0.8 10^3/uL (0-0.7) H 07/18/20 04:00 Basophils # (Manual) 0.0 10^3/uL (0-0.1) 07/18/20 04:00 Differential Comment MANUAL DIFFERENTIAL 07/18/20 04:00 Manual Slide Review Indicated 07/17/20 15:17 Platelet Estimate NORMAL (130-450,000) (NORMAL) 07/18/20 04:00 Platelet Morphology NORMAL APPEARANCE (NORMAL) 07/17/20 15:17 RBC Morph Micro Appear NORMAL APPEARANCE (NORMAL) 07/18/20 04:00 Absolute Retic 0.050 10^6/uL (0.020-0.110) 07/18/20 08:50 PT 12.4 secs (9.9-12.6) 07/17/20 15:17 INR 1.1 (0.8-1.2) 07/17/20 15:17 Sodium 135 mmol/L (135-145) 07/18/20 04:00 Potassium 4.2 mmol/L (3.5-5.0) 07/18/20 04:00 Chloride 104 mmol/L (101-111) 07/18/20 04:00 Carbon Dioxide 24 mmol/L (21-32) 07/18/20 04:00 Anion Gap 7.0 (6-13) 07/18/20 04:00 BUN 22 mg/dL (6-20) H 07/18/20 04:00 Creatinine 0.8 mg/dL (0.4-1.0) 07/18/20 04:00 Estimated GFR (MDRD) 68 (>89) L 07/18/20 04:00 Glucose 114 mg/dL (70-100) H 07/18/20 04:00 Calcium 8.3 mg/dL (8.5-10.3) L 07/18/20 04:00 Iron 46 ug/dL (28-170) 07/18/20 08:50 TIBC 301 ug/dL (250-450) 07/18/20 08:50 % Saturation 15 % (20-50) L 07/18/20 08:50 Transferrin 215 mg/dL (192-382) 07/18/20 08:50 Ferritin 147.9 ng/mL (11.0-306.8) 07/18/20 08:50 Lactate Dehydrogenase 205 IU/L (91-225) 07/18/20 08:50 Vitamin B12 362 pg/mL (180-914) 07/18/20 08:50 Nasal Adenovirus (PCR) NOT DETECTED 07/17/20 14:15 Nasal B. parapertussis DNA (PCR) NOT DETECTED 07/17/20 14:15 Nasal Coronavir 229E PCR NOT DETECTED 07/17/20 14:15 Nasal Coronavir HKU1 PCR NOT DETECTED 07/17/20 14:15 Nasal Coronavir NL63 PCR NOT DETECTED 07/17/20 14:15 Nasal Coronavir OC43 PCR NOT DETECTED 07/17/20 14:15 Nasal Enterovir/Rhinovir PCR NOT DETECTED 07/17/20 14:15 Nasal Influenza B PCR NOT DETECTED 07/17/20 14:15 Nasal Influenza A PCR NOT DETECTED 07/17/20 14:15 Nasal Parainfluen 1 PCR NOT DETECTED 07/17/20 14:15 Nasal Parainfluen 2 PCR NOT DETECTED 07/17/20 14:15 Nasal Parainfluen 3 PCR NOT DETECTED 07/17/20 14:15 Nasal Parainfluen 4 PCR NOT DETECTED 07/17/20 14:15 Nasal RSV (PCR) NOT DETECTED 07/17/20 14:15 Nasal B.pertussis DNA PCR NOT DETECTED 07/17/20 14:15 Nasal C.pneumoniae (PCR) NOT DETECTED 07/17/20 14:15 Rai Human Metapneumo PCR NOT DETECTED 07/17/20 14:15 Nasal M.pneumoniae (PCR) NOT DETECTED 07/17/20 14:15 Nasal SARS-CoV-2 (PCR) NOT DETECTED 07/17/20 14:15 Blood Type A POSITIVE 07/17/20 15:38 Blood Type Recheck A POSITIVE 07/17/20 15:17 Antibody Screen NEGATIVE 07/17/20 15:38 Sepsis Event Note (H) - Evaluation Current Stage of Sepsis: Ruled out ABX Reporting Has patient been on IV antibiotics over the past 48 hours?: Yes Current Medications - Current Medications Current Medications: Active Medications Acetaminophen (Acetaminophen 325 Mg Tablet) 650 mg PO Q4HR PRN PRN Reason: Pain 1 to 4 Diphenhydramine HCl (Diphenhydramine Elixir 25 Mg/10 Ml Udc) 12.5 mg PO Q6HR PRN PRN Reason: ITCHING Last Admin: 07/17/20 21:56 Dose: 12.5 mg Documented by: Hydralazine HCl (Hydralazine Inj 20 Mg/Ml Vial) 10 mg IVP QID PRN PRN Reason: Hypertensive Emergency Lactated Ringer's (Lr) 1,000 mls @ 100 mls/hr IV .Q10H NELY Last Admin: 07/18/20 13:07 Dose: 100 mls/hr Documented by: Morphine Sulfate (Morphine 2 Mg/Ml Carpuject) 2 mg IVP Q2HR PRN PRN Reason: Pain 8 to 10 Ondansetron HCl (Ondansetron Odt 4 Mg Tablet) 4 mg TL Q6HR PRN PRN Reason: Nausea / Vomiting Ondansetron HCl (Ondansetron 4 Mg/2 Ml Vial) 4 mg IVP Q6HR PRN PRN Reason: Nausea / Vomiting Oxycodone HCl (Oxycodone 5 Mg Tablet) 5 mg PO Q4HR PRN PRN Reason: Pain 5 to 7 Last Admin: 07/18/20 08:08 Dose: 5 mg Documented by: Prochlorperazine Edisylate (Prochlorperazine 10 Mg/2 Ml Vial) 10 mg IVP Q6HR PRN PRN Reason: Nausea / Vomiting Sodium Chloride (Sodium Chloride Flush 0.9% 10 Ml Syringe) 10 ml IVP PRN PRN PRN Reason: NEEDED PER PROVIDER ORDERS Sodium Chloride (Sodium Chloride Flush 0.9% 10 Ml Syringe) 10 ml IVP 0100,0900,1700 NELY Last Admin: 07/18/20 08:11 Dose: Not Given Documented by: Aspirin [Aspirin EC] 81 mg PO DAILY 07/17/20 Gabapentin [Neurontin] 200 mg PO QPM 07/17/20 Metoprolol Succinate [Toprol Xl] 12.5 mg PO DAILY 07/17/20 Omeprazole [PriLOSEC] 20 mg PO DAILY 07/17/20
[2020-07-18] MEDS ORDERED: EPINEPHrine 1 MG/ML AMP ONE (15:27)
[2020-07-18] MEDS ORDERED: SODIUM CHLORIDE 0.9% 10 ML ONE ×2 (15:27→15:31)
[2020-07-18] MEDS ORDERED: DEXAMETHASONE 10 MG/ML VIAL ONE (15:27)
[2020-07-18] MEDS ORDERED: ROPIVACAINE 0.5% PF 20 ML AMPULE ONE (15:27)
[2020-07-18] MEDS ORDERED: KETAMINE 500 MG/10 ML VIAL ONE (15:30)
[2020-07-18] MEDS ORDERED: PHENYLEPHRINE 10 MG/ML VIAL ONE (16:14)
[2020-07-18] MEDS ORDERED: ONDANSETRON 4 MG/2 ML VIAL IVP PRN (17:34)
[2020-07-18] MEDS ORDERED: PROCHLORPERAZINE 10 MG/2 ML VIAL IVP PRN (17:34)
--- NOTE | 2020-07-18 17:34 | OPERATIVE REPORT ---
Operative Report - General Admit Date: 07/17/20 Procedure Date: 07/18/20 Planned Procedure: Closed reduction and short interTan nailing of right hip fracture Pre-Op Diagnosis: Closed right hip fracture Procedure Performed: Closed reduction and short interTan nailing of right hip fracture Post Op Diagnosis: Same - Procedure Note Primary Surgeon: Nat Bearden MD Anesthesia Provider: Stephen Guzman CRNA Anesthesia Technique: Spinal IV Fluids (mL): 800 Estimated Blood Loss (mL): 125 Complications: None
[2020-07-18] MEDS ORDERED: LACTATED RINGERS 1,000 ML IV ONE (17:41)
--- NOTE | 2020-07-18 17:49 | ANESTHESIA POST OP EVALUATION ---
Anesthesia Post Eval - Post Anesthesia Eval Vitals: Last Vital Signs Temp 36.1 C L 07/18/20 17:36 Pulse 66 07/18/20 17:36 Resp 18 07/18/20 17:36 BP 123/60 07/18/20 17:36 Pulse Ox 100 07/18/20 17:36 CV Function Including HR & BP: positive: Stable Pain Control: positive: Satisfactory Mental Status: positive: Patient Participates Respiratory Status: Airway Patent Hydration Status: Satisfactory Anesthesia Complications: positive: None
--- NOTE | 2020-07-18 17:59 | OPERATIVE REPORT ---
DATE OF SERVICE: 07/18/2020 Physician: Walter Bearden MD PREOPERATIVE DIAGNOSIS: Closed right intertrochanteric hip fracture. POSTOPERATIVE DIAGNOSIS: Closed right intertrochanteric hip fracture. PROCEDURE PERFORMED: Closed reduction and short Intertan nailing of right hip fracture. SURGEON: Walter Bearden MD. ANESTHESIA: Spinal. DESCRIPTION OF PROCEDURE: The patient was taken to the operating room on the afternoon of 07/18/2020 where a spinal anesthetic was given to her. Once this was accomplished, she was then positioned sup ine onto the fracture table. Her right fractured extremity was then placed in axial traction with th e leg internally rotated about 30 degrees. The left un-fractured extremity then had the hip flexed a nd widely abducted and held with a well leg bronson. Fluoroscopic views in AP and lateral projection showed good reduction of the fracture in AP and lateral projections. Next, lateral hip was then prepped and draped in the usual fashion for our procedure. Making an obli que skin incision just proximal to the tip of the greater trochanter, we dissected down to the tip of the trochanter. This is where we placed a threaded-tip guidewire from our nail set. Fluoroscopic v iew confirmed the tip of the pin was at the tip of the greater trochanter. Under power, we then dril led this guide pin in an oblique fashion through the greater trochanter and into the proximal femur, down to the level of the lesser trochanter. A fluoroscopic view was then obtained in the lateral pos ition, which again showed satisfactory position of our guide pin as well as proper depth. Satisfied with this, we then proceeded to ream the proximal femur using our 16 mm cannulated channel reamer ove r our guide pin. The guide pin and the channel reamer were then removed from the proximal femur. Ne xt, we inserted the selected short Intertan nail (10 mm x 18 cm x 125 degree angle proximal hole) on the garment parts cutter machine and inserted this down the prepared proximal femur. With fluoroscopic guidance, we were able to advance this nail until the oblique hole in the proximal end of our nail was in alignment wi th the central axis of the femoral neck and head. Once we were satisfied with the position of our na il, we then proceeded to insert the oblique pin guide into the proximal end of our insertion apparatu s and advance this to a small skin incision to the lateral proximal of cortical surface. We then use d the threaded guidewire and advanced this under power through this oblique pin guide, advancing this through the proximal femur, femoral neck, and femoral head. Fluoroscopic views in AP and lateral pr ojection showed good position of our guide pin as well as proper depth to within about 3 mm of the cummings bchondral bone in both AP and lateral projections. Satisfied with this, we then proceeded to ream th e femoral neck and head using the cannulated reamer. The direct measuring guide was used, and we det ermined that an 11 x 180 mm length subtrochanteric hip lag screw be utilized. This was then inserted over our guide pin through the prepared femoral neck and head. This was advanced until the hip lag screw was within about 3 mm of the subchondral bone in both AP and lateral projections. This was con firmed with C-arm fluoroscopy. Satisfied with the reduction of our fracture and the placement of our hardware, we then proceeded to remove the insertion apparatus for our hip lag screw. We then locked the set screw in the proximal end of the nail using the hinged screwdriver until the screw was snug and then backed it off 90 degrees. Next, our attention was directed to inserting the distal locking screw. Through the most distal stat ic hole in the insertion apparatus of our nail, we inserted our concentric silver and gold drill slee ves through the guide into a small incision down to the lateral femoral cortex at about mid shaft. W e then proceeded to use our 4.0 airplane pilot chief hole drill and inserted this through our drill sleeves and dril led the femoral shaft. Once we perforated both medial and lateral cortex, we determined that a 30 mm length screw would be utilized measured off of our inserted drill bit. The drill bit was removed, a s was the silver inner sleeve. This was then followed by the selected 5 mm x 30 mm distal locking sc rew through the airplane pilot chief hole that was made previously. Fluoroscopic views in AP and lateral projection showed a bicortical screw in both projections and that this was through the distal hole of our nail. We then removed our drill sleeves and the insertion apparatus off of the proximal end of our nail. Final views were then taken at the hip in AP and lateral projection, which again confirmed a good re duction of our fracture and satisfactory placement of our hardware. We then irrigated all the wounds thoroughly with saline. We closed the proximal wound with several b uried interrupted stitches of 0 Vicryl to approximate the fascia vicente layer. Buried simple stitches of 2-0 Vicryl were used to close the subcutaneous tissues in both the proximal 2 incisions. Finally, skin juan a were used to approximate the skin incisions to all 3 incisions. We then washed the wou nds and applied a silver dressing over our incisions. Postoperatively, a regional nerve block was then given to help with postoperative analgesia. The pat ient then transferred to the recovery room in her bed in satisfactory condition. ESTIMATED BLOOD LOSS: 125 mL of blood. REPLACEMENT: Crystalloid 800 mL. INTRAOPERATIVE COMPLICATIONS: None. PLAN: The patient will be started on physical therapy and may be weightbearing as tolerated on this right lower extremity. TD: 07/18/2020 17:48
--- NOTE | 2020-07-18 18:08 | XRAY Report ---
PROCEDURE: OR C-Arm Procedure INDICATIONS: ORIF RT HIP TECHNIQUE: 4 intraoperative views of the right hip are obtained. COMPARISON: None. FINDINGS: Intraoperative imaging obtained during right hip ORIF. IMPRESSION: Right hip ORIF. Reviewed by: Torsten Palomino MD on 07/18/2020 6:06 PM [facility] Approved by: Torsten Palomino MD on 07/18/2020 6:06 PM [facility] Station ID: [id number]
[2020-07-18] MEDS: SODIUM CHLORIDE 0.9% 1,000 ML IV SCH (18:38)
[2020-07-18] MEDS: diphenhydrAMINE ELIXIR 25 MG/10 ML UDC PO PRN (20:35)
[2020-07-18] MEDS: ceFAZolin 2 GM/50 ML 2 GM/50 ML BAG IV SCH (22:05)
[2020-07-18 22:16] LABS: HGB - HEMOGLOBIN 9.6 g/dL (12.0-16.0)
[2020-07-18] MEDS: DOCUSATE SODIUM 100 MG CAPSULE PO PRN (22:36)
[2020-07-18] MEDS: SENNA 8.6 MG TABLET PO PRN (22:36)
[2020-07-19] MEDS: SODIUM CHLORIDE FLUSH 0.9% 10 ML SYRINGE IVP SCH ×3 (00:35→16:44)
[2020-07-19] MEDS: oxyCODONE 5 MG TABLET PO PRN ×3 (03:02→13:59)
[2020-07-19] MEDS: SODIUM CHLORIDE 0.9% 1,000 ML IV SCH (04:33)
[2020-07-19 06:21] LABS: BASOPHILS % (AUTO) 0.3 %; EOSINOPHILS % (AUTO) 0.3 %; HGB - HEMOGLOBIN 8.7 g/dL (12.0-16.0); LYMPHOCYTES # (AUTO) 0.6 10^3/uL (1.5-3.5); LYMPHOCYTES % (AUTO) 7.8 %; MEAN CORPUSCULAR HEMOGLOBIN 28.4 pg (27.0-31.0); MEAN CORPUSCULAR HGB CONC 30.7 g/dL (32.0-36.0); MEAN CORPUSCULAR VOLUME 92.5 fL (81.0-99.0); MEAN PLATELET VOLUME 10.2 fL (7.9-10.8); MONOCYTES # (AUTO) 0.6 10^3/uL (0.0-1.0); MONOCYTES % (AUTO) 7.4 %; NEUTROPHILS # (AUTO) 6.5 10^3/uL (1.5-6.6); NEUTROPHILS % (AUTO) 83.7 %; PLT - PLATELET COUNT 146 10^3/uL (130-450); RED BLOOD COUNT 3.06 10^6/uL (4.20-5.40); RED CELL DISTRIBUTION WIDTH 13.2 % (12.0-15.0); WHITE BLOOD COUNT 7.7 x10^3/uL (4.8-10.8)
[2020-07-19] MEDS: ceFAZolin 2 GM/50 ML 2 GM/50 ML BAG IV SCH (06:28)
[2020-07-19 06:33] LABS: CALCIUM 8.2 mg/dL (8.5-10.3); CREATININE 0.8 mg/dL (0.4-1.0)
[2020-07-19] MEDS: ASPIRIN 325 MG TABLET PO SCH ×2 (07:58→16:44)
[2020-07-19] MEDS: diphenhydrAMINE ELIXIR 25 MG/10 ML UDC PO PRN ×3 (07:59→20:35)
[2020-07-19 08:30] LABS: BILIRUBIN,URINE NEGATIVE (NEGATIVE); GLUCOSE, URINE (UA) NEGATIVE (NEGATIVE); KETONES,URINE (UA) NEGATIVE (NEGATIVE); LEUKOCYTE ESTERASE, URINE NEGATIVE (NEGATIVE); NITRITE,URINE NEGATIVE (NEGATIVE); OCCULT BLOOD,URINE NEGATIVE (NEGATIVE); PROTEIN,URINE NEGATIVE (NEGATIVE); UROBILINOGEN,URINE 0.2 (NORMAL) E.U./dL (NORMAL)
[2020-07-19 08:38] LABS: BACTERIA,URINE None Seen /HPF (None Seen); CLARITY,URINE CLEAR (CLEAR); MUCUS,URINE Few Strands; RBC,URINE None Seen /HPF (0-5); SQUAMOUS EPITHELIAL CELL,UR RARE Squamous (<= Few)
--- NOTE | 2020-07-19 09:32 | PROVIDER PROGRESS NOTE ---
Subjective - Prog Note Date Prog Note Date: 07/19/20 Prog Note Time: 09:30 - Subjective Pt reports feeling: Improved (Less pain) Objective - Vital Signs/Intake & Output Vital Signs: Vital Signs x48h Temp Pulse Resp BP Pulse Ox 07/19/20 08:09 37.3 C 70 19 101/44 L 97 07/19/20 04:00 98.6 C H 66 14 99/45 L 93 Intake & Output: Intake & Output 07/16/20 07/17/20 07/18/20 07/19/20 23:59 23:59 23:59 23:59 Intake Total 400 2775.000 1443.333 Output Total 500 1900 1050 Balance -100 875.000 393.333 - Lab Results Fish Bones: 07/19/20 06:05 07/19/20 06:05 Other Labs: Lab Results x24hrs 07/19/20 07/19/20 07/19/20 Range/Units 08:15 06:05 06:05 WBC 7.7 (4.8-10.8) x10^3/uL RBC 3.06 L (4.20-5.40) 10^6/uL Hgb 8.7 L (12.0-16.0) g/dL Hct 28.3 L (37.0-47.0) % MCV 92.5 (81.0-99.0) fL MCH 28.4 (27.0-31.0) pg MCHC 30.7 L (32.0-36.0) g/dL RDW 13.2 (12.0-15.0) % Plt Count 146 (130-450) 10^3/uL MPV 10.2 (7.9-10.8) fL Neut # (Auto) 6.5 (1.5-6.6) 10^3/uL Lymph # (Auto) 0.6 L (1.5-3.5) 10^3/uL Izard # (Auto) 0.6 (0.0-1.0) 10^3/uL Eos # (Auto) 0.0 (0.0-0.7) 10^3/uL Baso # (Auto) 0.0 (0.0-0.1) 10^3/uL Absolute Nucleated RBC 0.00 x10^3/uL Nucleated RBC % 0.0 /100WBC Sodium 133 L (135-145) mmol/L Potassium 4.3 (3.5-5.0) mmol/L Chloride 101 (101-111) mmol/L Carbon Dioxide 24 (21-32) mmol/L Anion Gap 8.0 (6-13) BUN 15 (6-20) mg/dL Creatinine 0.8 (0.4-1.0) mg/dL Estimated GFR (MDRD) 68 L (>89) Glucose 160 H (70-100) mg/dL Calcium 8.2 L (8.5-10.3) mg/dL Ferritin (11.0-306.8) ng/mL Vitamin B12 (180-914) pg/mL Urine Color YELLOW Urine Clarity CLEAR (CLEAR) Urine pH 7.0 (5.0-7.5) PH Ur Specific Cicero 1.010 (1.002-1.030) Urine Protein NEGATIVE (NEGATIVE) mg/dL Urine Glucose (UA) NEGATIVE (NEGATIVE) mg/dL Urine Ketones NEGATIVE (NEGATIVE) mg/dL Urine Occult Blood NEGATIVE (NEGATIVE) Urine Nitrite NEGATIVE (NEGATIVE) Urine Bilirubin NEGATIVE (NEGATIVE) Urine Urobilinogen 0.2 (NORMAL) (NORMAL) E.U./dL Ur Leukocyte Esterase NEGATIVE (NEGATIVE) Urine RBC None Seen (0-5) /HPF Urine WBC 0-3 (0-5) /HPF Ur Squamous Epith Cells RARE Squamous (<= Few) Urine Bacteria None Seen (None Seen) /HPF Urine Mucus Few Strands Urine Culture Comments NOT INDICATED 07/18/20 07/18/20 Range/Units 22:00 08:50 WBC (4.8-10.8) x10^3/uL RBC (4.20-5.40) 10^6/uL Hgb 9.6 L (12.0-16.0) g/dL Hct 30.4 L (37.0-47.0) % MCV (81.0-99.0) fL MCH (27.0-31.0) pg MCHC (32.0-36.0) g/dL RDW (12.0-15.0) % Plt Count (130-450) 10^3/uL MPV (7.9-10.8) fL Neut # (Auto) (1.5-6.6) 10^3/uL Lymph # (Auto) (1.5-3.5) 10^3/uL Izard # (Auto) (0.0-1.0) 10^3/uL Eos # (Auto) (0.0-0.7) 10^3/uL Baso # (Auto) (0.0-0.1) 10^3/uL Absolute Nucleated RBC x10^3/uL Nucleated RBC % /100WBC Sodium (135-145) mmol/L Potassium (3.5-5.0) mmol/L Chloride (101-111) mmol/L Carbon Dioxide (21-32) mmol/L Anion Gap (6-13) BUN (6-20) mg/dL Creatinine (0.4-1.0) mg/dL Estimated GFR (MDRD) (>89) Glucose (70-100) mg/dL Calcium (8.5-10.3) mg/dL Ferritin 147.9 (11.0-306.8) ng/mL Vitamin B12 362 (180-914) pg/mL Urine Color Urine Clarity (CLEAR) Urine pH (5.0-7.5) PH Ur Specific Cicero (1.002-1.030) Urine Protein (NEGATIVE) mg/dL Urine Glucose (UA) (NEGATIVE) mg/dL Urine Ketones (NEGATIVE) mg/dL Urine Occult Blood (NEGATIVE) Urine Nitrite (NEGATIVE) Urine Bilirubin (NEGATIVE) Urine Urobilinogen (NORMAL) E.U./dL Ur Leukocyte Esterase (NEGATIVE) Urine RBC (0-5) /HPF Urine WBC (0-5) /HPF Ur Squamous Epith Cells (<= Few) Urine Bacteria (None Seen) /HPF Urine Mucus Urine Culture Comments - Other Results/Comments Other Results/Comments: EXAM: Dressing intact. Mild pain with hip rotation. N/V ok distally Sepsis Event Note (H) - Evaluation Current Stage of Sepsis: Ruled out Assessment/Plan - Problem List (1) Fracture, intertrochanteric, right femur Impression: Satis post op PLAN: PT to mobilize as tolerated. When dischargerd, follow up in 2 weeks in clinic for juan a out and new XR. Qualifiers: Encounter type: subsequent encounter
[2020-07-19] MEDS: polyethylene glycoL 3350 17 GM PACKET PO SCH (10:59)
[2020-07-19] MEDS: KETOROLAC 15 MG/ML VIAL IVP PRN ×2 (11:54→18:40)
--- NOTE | 2020-07-19 15:13 | PROVIDER PROGRESS NOTE ---
Assessment/Plan - Problem List (1) Fracture, intertrochanteric, right femur Qualifiers: Encounter type: subsequent encounter Assessment/Plan: 07/19 Status post Of right hip repair day 1, Continue physical therapist and occupational therapist, continue pain control, incentive spirometer. Patient and patient's daughter declined to be discharge to SNF. 07/18 Patient is planning to have surgery on this afternoon, We will follow-up after surgery Patient had a mechanical fall, X-ray show right intertrochanteric fracture. Surgeon was consulted and plan to have surgery for patient on tomorrow. NPO after midnight, continue intravenous IV fluids, DVT prophylaxis is dependent on surgeon, Continue pain control (2) Pre-op evaluation Conclusion/Plan: 07/18 Call surgeon and report patient's echo study result, Which show no aortic stenosis, normal EF, moderate pulmonary hypertension RVSP 57 mmHG. Mild tricuspid regurgitation. Patient denies cardiac history, denies CVA, CHF or [place] before. 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 she will have evaluation in this . ER provider called [employer] and he believe we can continue Operation. In the physical examination, I found the patient had systolic murmur. EKG show sinus rhythm. We will do echo study before surgery. Revised cardiac risk index of Gabe criteria 0.4%, Low risk. (3) Heart murmur, systolic Conclusion/Plan: 07/18 echo study result, Which show no aortic stenosis, normal EF, moderate pulmonary hypertension RVSP 57 mmHG, Mild tricuspid regurgitation. examination of Patient show heart murmur systolic. Patient denies any cardiac medical history. We will have echo study before surgery. (4) HTN (hypertension) Conclusion/Plan: 07/19 soft blood pressure, will hold home blood pressure medicine, continue vital signs monitor Patient has elevated blood pressure. Patient was given lisinopril and metoprolol by ER, we will resume patient home blood pressure medicine after confirmed By pharmacy, Add hydralazine as needed (5) Skin rash Conclusion/Plan: Patient reported she has history of skin rash, she was seen by [facility] health editor but so far nobody figure out what kind of skin rash. She also report skin rash with itching. She is followed up by dermatology now. (6) History of abdominal aortic aneurysm (AAA) Conclusion/Plan: 07/19 Stable, Patient denies any abdominal pain, Patient's daughter reported patient had Wednesday appointment to see his vascular surgeon, we will try cooperate to let pt followup with her appointment. Patient reported she has a history AAA 5 cm, She was followed up by her vascular surgeon, she will have imaging study in this months . She denies any abdominal pain or chest pain, Or back pain At this point. Advised patient follow-up with her vascular surgeon continue management - Current Meds Current Meds: Current Medications Generic Name Dose Route Start Last Admin Trade Name Freq PRN Reason Stop Dose Admin Aspirin 325 mg 07/19/20 08:00 07/19/20 07:58 Aspirin 325 Mg Tablet PO 325 mg BIDWM NELY Administration Diphenhydramine HCl 12.5 mg 07/17/20 20:49 07/19/20 14:33 Diphenhydramine Elixir 25 Mg/10 Ml Udc PO 12.5 mg Q6HR PRN Administration ITCHING Docusate Sodium 100 mg 07/18/20 17:34 07/18/20 22:36 Docusate Sodium 100 Mg Capsule PO 100 mg BID PRN Administration Constipation Ketorolac Tromethamine 15 mg 07/19/20 11:02 07/19/20 11:54 Ketorolac 15 Mg/Ml Vial IVP 07/24/20 11:01 15 mg Q6HR PRN Administration PAIN Oxycodone HCl 5 mg 07/17/20 15:58 07/19/20 13:59 Oxycodone 5 Mg Tablet PO 5 mg Q4HR PRN Administration Pain 5 to 7 Polyethylene Glycol 17 gm 07/19/20 11:00 07/19/20 10:59 Polyethylene Glycol 3350 17 Gm Packet PO 17 gm DAILY NELY Administration Senna 17.2 mg 07/18/20 17:34 07/18/20 22:36 Senna 8.6 Mg Tablet PO 17.2 mg Q12H PRN Administration Constipation Sodium Chloride 10 ml 07/19/20 01:07/19/20 07:59 Sodium Chloride Flush 0.9% 10 Ml Syringe IVP 10 ml 0100,0900,1700 NELY Administration - Lab Result Fish Bone Diagrams: 07/19/20 06:05 07/19/20 06:05 - Additional Planning My Orders: My Active Orders 07/19/20 11:02 Ketorolac Inj (15Mg) [Toradol Inj (15Mg)] 15 mg IVP Q6HR PRN 07/19/20 19:00 H&H [HEMOGLOBIN AND HEMATOCRIT] [HEME] Timed 07/20/20 05:00 BMP - BASIC METABOLIC PANEL [CHEM] DAILYLAB CBC - COMP BLD CT W/AUTO DIFF [HEME] DAILYLAB 07/21/20 05:00 BMP - BASIC METABOLIC PANEL [CHEM] DAILYLAB CBC - COMP BLD CT W/AUTO DIFF [HEME] DAILYLAB 07/22/20 05:00 BMP - BASIC METABOLIC PANEL [CHEM] DAILYLAB CBC - COMP BLD CT W/AUTO DIFF [HEME] DAILYLAB Subjective - Subjective Patient Reports: Feeling Better Objective Vital Signs: Vital Signs - 24 hr 07/18/20 07/18/20 07/18/20 17:36 17:45 18:00 Temperature 36.1 C L 36.3 C L 36.3 C L Heart Rate 66 67 66 Heart Rate [ Activity] Heart Rate [ Brachial] Heart Rate [ Sitting] Heart Rate [ Standing] Heart Rate [ Supine] Respiratory 18 15 18 Rate Blood Pressure 123/60 126/56 L 133/52 H Blood Pressure [Activity] Blood Pressure [Left Brachial artery] Blood Pressure [Left Radial artery] Blood Pressure [Sitting] Blood Pressure [Standing] Blood Pressure [Supine] O2 Saturation 100 100 98 07/18/20 07/18/20 07/18/20 18:05 18:37 20:16 Temperature 36.6 C 37.1 C Heart Rate Heart Rate [ Activity] Heart Rate [ 74 76 64 Brachial] Heart Rate [ Sitting] Heart Rate [ Standing] Heart Rate [ Supine] Respiratory 18 19 Rate Blood Pressure Blood Pressure [Activity] Blood Pressure [Left Brachial artery] Blood Pressure 143/52 H 112/85 H 116/46 L [Left Radial artery] Blood Pressure [Sitting] Blood Pressure [Standing] Blood Pressure [Supine] O2 Saturation 92 95 07/19/20 07/19/20 07/19/20 04:00 08:09 10:40 Temperature 98.6 C H 37.3 C Heart Rate Heart Rate [ 65 Activity] Heart Rate [ 66 70 Brachial] Heart Rate [ 77 Sitting] Heart Rate [ 75 Standing] Heart Rate [ 68 Supine] Respiratory 14 19 Rate Blood Pressure Blood Pressure 130/40 L [Activity] Blood Pressure 99/45 L 101/44 L [Left Brachial artery] Blood Pressure [Left Radial artery] Blood Pressure 125/60 [Sitting] Blood Pressure 111/82 H [Standing] Blood Pressure 100/39 L [Supine] O2 Saturation 93 97 07/19/20 12:00 Temperature 37.0 C Heart Rate Heart Rate [ Activity] Heart Rate [ 66 Brachial] Heart Rate [ Sitting] Heart Rate [ Standing] Heart Rate [ Supine] Respiratory 18 Rate Blood Pressure Blood Pressure [Activity] Blood Pressure [Left Brachial artery] Blood Pressure 106/43 L [Left Radial artery] Blood Pressure [Sitting] Blood Pressure [Standing] Blood Pressure [Supine] O2 Saturation 95 Oxygen O2 Source Room air I&O (Last 24 Hrs): Intake and Output Totals x24h 07/17/20 07/18/20 07/19/20 23:59 23:59 23:59 Intake Total 400 2775.000 2283.333 Output Total 500 1900 1450 Balance -100 875.000 833.333 General: Alert, Oriented x3, Cooperative, No acute distress HEENT: Atraumatic Neck: Supple Lymphatic: no adenopathy Neuro: Alert, Non Focal, Oriented Times 3 Cardiovascular: Regular rate, Normal S1, Normal S2 Respiratory: Chest non-tender, No respiratory distress, Breath sounds nml Abdomen: Normal bowel sounds, Soft Extremities: Normal pulses - Results Results: Laboratory Results WBC 7.7 x10^3/uL (4.8-10.8) 07/19/20 06:05 RBC 3.06 10^6/uL (4.20-5.40) L 07/19/20 06:05 Hgb 8.7 g/dL (12.0-16.0) L 07/19/20 06:05 Hct 28.3 % (37.0-47.0) L 07/19/20 06:05 MCV 92.5 fL (81.0-99.0) 07/19/20 06:05 MCH 28.4 pg (27.0-31.0) 07/19/20 06:05 MCHC 30.7 g/dL (32.0-36.0) L 07/19/20 06:05 RDW 13.2 % (12.0-15.0) 07/19/20 06:05 Plt Count 146 10^3/uL (130-450) 07/19/20 06:05 MPV 10.2 fL (7.9-10.8) 07/19/20 06:05 Reticulocyte % (Auto) 1.40 % (0.5-2.3) 07/18/20 08:50 Neut # (Auto) 6.5 10^3/uL (1.5-6.6) 07/19/20 06:05 Lymph # (Auto) 0.6 10^3/uL (1.5-3.5) L 07/19/20 06:05 [place] # (Auto) 0.6 10^3/uL (0.0-1.0) 07/19/20 06:05 Eos # (Auto) 0.0 10^3/uL (0.0-0.7) 07/19/20 06:05 Baso # (Auto) 0.0 10^3/uL (0.0-0.1) 07/19/20 06:05 Absolute Nucleated RBC 0.00 x10^3/uL 07/19/20 06:05 Total Counted 100 07/18/20 04:00 Band Neuts % (Manual) 0 % (0-10) 07/18/20 04:00 Abnorm Lymph % (Manual) 0 % 07/18/20 04:00 Nucleated RBC % 0.0 /100WBC 07/19/20 06:05 Neutrophils # (Manual) 7.8 10^3/uL (1.5-6.6) H 07/18/20 04:00 Lymphocytes # (Manual) 1.5 10^3/uL (1.5-3.5) 07/18/20 04:00 Monocytes # (Manual) 0.3 10^3/uL (0.0-1.0) 07/18/20 04:00 Eosinophils # (Manual) 0.8 10^3/uL (0-0.7) H 07/18/20 04:00 Basophils # (Manual) 0.0 10^3/uL (0-0.1) 07/18/20 04:00 Differential Comment MANUAL DIFFERENTIAL 07/18/20 04:00 Manual Slide Review Indicated 07/17/20 15:17 Platelet Estimate NORMAL (130-450,000) (NORMAL) 07/18/20 04:00 Platelet Morphology NORMAL APPEARANCE (NORMAL) 07/17/20 15:17 RBC Morph Micro Appear NORMAL APPEARANCE (NORMAL) 07/18/20 04:00 Absolute Retic 0.050 10^6/uL (0.020-0.110) 07/18/20 08:50 PT 12.4 secs (9.9-12.6) 07/17/20 15:17 INR 1.1 (0.8-1.2) 07/17/20 15:17 Sodium 133 mmol/L (135-145) L 07/19/20 06:05 Potassium 4.3 mmol/L (3.5-5.0) 07/19/20 06:05 Chloride 101 mmol/L (101-111) 07/19/20 06:05 Carbon Dioxide 24 mmol/L (21-32) 07/19/20 06:05 Anion Gap 8.0 (6-13) 07/19/20 06:05 BUN 15 mg/dL (6-20) 07/19/20 06:05 Creatinine 0.8 mg/dL (0.4-1.0) 07/19/20 06:05 Estimated GFR (MDRD) 68 (>89) L 07/19/20 06:05 Glucose 160 mg/dL (70-100) H 07/19/20 06:05 Calcium 8.2 mg/dL (8.5-10.3) L 07/19/20 06:05 Iron 46 ug/dL (28-170) 07/18/20 08:50 TIBC 301 ug/dL (250-450) 07/18/20 08:50 % Saturation 15 % (20-50) L 07/18/20 08:50 Transferrin 215 mg/dL (192-382) 07/18/20 08:50 Ferritin 147.9 ng/mL (11.0-306.8) 07/18/20 08:50 Lactate Dehydrogenase 205 IU/L (91-225) 07/18/20 08:50 Vitamin B12 362 pg/mL (180-914) 07/18/20 08:50 Urine Color YELLOW 07/19/20 08:15 Urine Clarity CLEAR (CLEAR) 07/19/20 08:15 Urine pH 7.0 PH (5.0-7.5) 07/19/20 08:15 Ur Specific [place] 1.010 (1.002-1.030) 07/19/20 08:15 Urine Protein NEGATIVE mg/dL (NEGATIVE) 07/19/20 08:15 Urine Glucose (UA) NEGATIVE mg/dL (NEGATIVE) 07/19/20 08:15 Urine Ketones NEGATIVE mg/dL (NEGATIVE) 07/19/20 08:15 Urine Occult Blood NEGATIVE (NEGATIVE) 07/19/20 08:15 Urine Nitrite NEGATIVE (NEGATIVE) 07/19/20 08:15 Urine Bilirubin NEGATIVE (NEGATIVE) 07/19/20 08:15 Urine Urobilinogen 0.2 (NORMAL) E.U./dL (NORMAL) 07/19/20 08:15 Ur Leukocyte Esterase NEGATIVE (NEGATIVE) 07/19/20 08:15 Urine RBC None Seen /HPF (0-5) 07/19/20 08:15 Urine WBC 0-3 /HPF (0-5) 07/19/20 08:15 Ur Squamous Epith Cells RARE Squamous (<= Few) 07/19/20 08:15 Urine Bacteria None Seen /HPF (None Seen) 07/19/20 08:15 Urine Mucus Few Strands 07/19/20 08:15 Urine Culture Comments NOT INDICATED 07/19/20 08:15 Nasal Adenovirus (PCR) NOT DETECTED 07/17/20 14:15 Nasal B. parapertussis DNA (PCR) NOT DETECTED 07/17/20 14:15 Nasal Coronavir 229E PCR NOT DETECTED 07/17/20 14:15 Nasal Coronavir HKU1 PCR NOT DETECTED 07/17/20 14:15 Nasal Coronavir NL63 PCR NOT DETECTED 07/17/20 14:15 Nasal Coronavir OC43 PCR NOT DETECTED 07/17/20 14:15 Nasal Enterovir/Rhinovir PCR NOT DETECTED 07/17/20 14:15 Nasal Influenza B PCR NOT DETECTED 07/17/20 14:15 Nasal Influenza A PCR NOT DETECTED 07/17/20 14:15 Nasal Parainfluen 1 PCR NOT DETECTED 07/17/20 14:15 Nasal Parainfluen 2 PCR NOT DETECTED 07/17/20 14:15 Nasal Parainfluen 3 PCR NOT DETECTED 07/17/20 14:15 Nasal Parainfluen 4 PCR NOT DETECTED 07/17/20 14:15 Nasal RSV (PCR) NOT DETECTED 07/17/20 14:15 Nasal B.pertussis DNA PCR NOT DETECTED 07/17/20 14:15 Nasal C.pneumoniae (PCR) NOT DETECTED 07/17/20 14:15 Rai Human Metapneumo PCR NOT DETECTED 07/17/20 14:15 Nasal M.pneumoniae (PCR) NOT DETECTED 07/17/20 14:15 Nasal SARS-CoV-2 (PCR) NOT DETECTED 07/17/20 14:15 Blood Type A POSITIVE 07/17/20 15:38 Blood Type Recheck A POSITIVE 07/17/20 15:17 Antibody Screen NEGATIVE 07/17/20 15:38 Sepsis Event Note (H) - Evaluation Current Stage of Sepsis: Ruled out ABX Reporting Has patient been on IV antibiotics over the past 48 hours?: No Current Medications - Current Medications Current Medications: Active Medications Acetaminophen (Acetaminophen 325 Mg Tablet) 650 mg PO Q4HR PRN PRN Reason: Pain 1 to 4 Aspirin (Aspirin 325 Mg Tablet) 325 mg PO BIDWM NELY Last Admin: 07/19/20 07:58 Dose: 325 mg Documented by: Diphenhydramine HCl (Diphenhydramine Elixir 25 Mg/10 Ml Udc) 12.5 mg PO Q6HR PRN PRN Reason: ITCHING Last Admin: 07/19/20 14:33 Dose: 12.5 mg Documented by: Docusate Sodium (Docusate Sodium 100 Mg Capsule) 100 mg PO BID PRN PRN Reason: Constipation Last Admin: 07/18/20 22:36 Dose: 100 mg Documented by: Hydralazine HCl (Hydralazine Inj 20 Mg/Ml Vial) 10 mg IVP QID PRN PRN Reason: Hypertensive Emergency Ketorolac Tromethamine (Ketorolac 15 Mg/Ml Vial) 15 mg IVP Q6HR PRN PRN Reason: PAIN Stop: 07/24/20 11:01 Last Admin: 07/19/20 11:54 Dose: 15 mg Documented by: Morphine Sulfate (Morphine 2 Mg/Ml Carpuject) 2 mg IVP Q2HR PRN PRN Reason: Pain 8 to 10 [id number] Ethyl Esters ([place]-3 Acid Ethyl Esters 1 Gm Capsule) 1 gm PO DAILY [facility] Ondansetron HCl (Ondansetron Odt 4 Mg Tablet) 4 mg TL Q6HR PRN PRN Reason: Nausea / Vomiting Ondansetron HCl (Ondansetron 4 Mg/2 Ml Vial) 4 mg IVP Q6HR PRN PRN Reason: Nausea / Vomiting Oxycodone HCl (Oxycodone 5 Mg Tablet) 5 mg PO Q4HR PRN PRN Reason: Pain 5 to 7 Last Admin: 07/19/20 13:59 Dose: 5 mg Documented by: Polyethylene Glycol (Polyethylene Glycol 3350 17 Gm Packet) 17 gm PO DAILY [facility] Last Admin: 07/19/20 10:59 Dose: 17 gm Documented by: Prochlorperazine Edisylate (Prochlorperazine 10 Mg/2 Ml Vial) 10 mg IVP Q6HR PRN PRN Reason: Nausea / Vomiting Senna (Senna 8.6 Mg Tablet) 17.2 mg PO Q12H PRN PRN Reason: Constipation Last Admin: 07/18/20 22:36 Dose: 17.2 mg Documented by: Sodium Chloride (Sodium Chloride Flush 0.9% 10 Ml Syringe) 10 ml IVP 0100,0900,1700 [facility] Last Admin: 07/19/20 07:59 Dose: 10 ml Documented by: Sodium Chloride (Sodium Chloride Flush 0.9% 10 Ml Syringe) 10 ml IVP PRN PRN PRN Reason: NEEDED PER PROVIDER ORDERS Aspirin [Aspirin EC] 81 mg PO DAILY 07/17/20 Gabapentin [Neurontin] 200 mg PO QPM 07/17/20 Metoprolol Succinate [Toprol Xl] 12.5 mg PO DAILY 07/17/20 Omeprazole [PriLOSEC] 20 mg PO DAILY 07/17/20
[2020-07-19] MEDS: ACETAMINOPHEN 325 MG TABLET PO PRN (16:44)
[2020-07-19] MEDS: OMEGA-3 ACID ETHYL ESTERS 1 GM CAPSULE PO SCH (16:44)
[2020-07-19] MEDS: SODIUM CHLORIDE FLUSH 0.9% 10 ML SYRINGE IVP PRN (18:40)
[2020-07-19 19:15] LABS: HGB - HEMOGLOBIN 7.9 g/dL (12.0-16.0)
[2020-07-19] MEDS: CALCIUM CARBONATE CHEW 500 MG TABLET PO SCH (20:35)
[2020-07-20] MEDS: SODIUM CHLORIDE FLUSH 0.9% 10 ML SYRINGE IVP SCH ×3 (00:09→16:10)
[2020-07-20] MEDS: ACETAMINOPHEN 325 MG TABLET PO PRN ×3 (00:12→16:09)
[2020-07-20] MEDS: diphenhydrAMINE ELIXIR 25 MG/10 ML UDC PO PRN ×2 (05:23→17:43)
[2020-07-20 06:30] LABS: BASOPHILS # (AUTO) 0.1 10^3/uL (0.0-0.1); BASOPHILS % (AUTO) 0.6 %; EOSINOPHILS # (AUTO) 1.1 10^3/uL (0.0-0.7); EOSINOPHILS % (AUTO) 13.4 %; HGB - HEMOGLOBIN 8.2 g/dL (12.0-16.0); LYMPHOCYTES # (AUTO) 1.2 10^3/uL (1.5-3.5); LYMPHOCYTES % (AUTO) 14.3 %; MEAN CORPUSCULAR HEMOGLOBIN 29.5 pg (27.0-31.0); MEAN CORPUSCULAR HGB CONC 31.7 g/dL (32.0-36.0); MEAN CORPUSCULAR VOLUME 93.2 fL (81.0-99.0); MEAN PLATELET VOLUME 10.3 fL (7.9-10.8); MONOCYTES # (AUTO) 0.9 10^3/uL (0.0-1.0); MONOCYTES % (AUTO) 10.4 %; NEUTROPHILS # (AUTO) 5.2 10^3/uL (1.5-6.6); NEUTROPHILS % (AUTO) 60.9 %; PLT - PLATELET COUNT 139 10^3/uL (130-450); RED BLOOD COUNT 2.78 10^6/uL (4.20-5.40); WHITE BLOOD COUNT 8.5 x10^3/uL (4.8-10.8)
[2020-07-20 06:37] LABS: CALCIUM 8.2 mg/dL (8.5-10.3)
[2020-07-20 07:28] LABS: DIFFERENTIAL COMMENT MANUAL=AUTO DIFF; PLATELET ESTIMATE, MANUAL NORMAL (130-450,000) (NORMAL); PLATELET MORPHOLOGY NORMAL APPEARANCE (NORMAL); RBC MORPHOLOGY (MULTIPLE) 1+ HYPOCHROMASIA (NORMAL)
[2020-07-20] MEDS: ASPIRIN 325 MG TABLET PO SCH ×2 (08:24→16:10)
[2020-07-20] MEDS: SENNA 8.6 MG TABLET PO PRN (08:43)
[2020-07-20] MEDS: CHOLECALCIFEROL 25 MCG TABLET PO SCH (08:43)
[2020-07-20] MEDS: polyethylene glycoL 3350 17 GM PACKET PO SCH (08:43)
[2020-07-20] MEDS: CALCIUM CARBONATE CHEW 500 MG TABLET PO SCH ×2 (08:45→20:13)
[2020-07-20] MEDS: KETOROLAC 15 MG/ML VIAL IVP PRN ×3 (08:46→23:08)
--- NOTE | 2020-07-20 09:52 | PROVIDER PROGRESS NOTE ---
Subjective - Prog Note Date Prog Note Date: 07/20/20 Prog Note Time: 09:45 - Subjective Pt reports feeling: Improved (No new problems) Objective - Vital Signs/Intake & Output Vital Signs: Vital Signs x48h Temp Pulse Resp BP Pulse Ox 07/20/20 08:12 37.1 C 71 21 105/42 L 94 07/20/20 05:51 36.5 C 60 20 147/59 H 96 Intake & Output: Intake & Output 07/17/20 07/18/20 07/19/20 07/20/20 23:59 23:59 23:59 23:59 Intake Total 400 2775.000 2923.333 860 Output Total 500 1900 1550 350 Balance -100 345.985 1898.333 510 - Lab Results Fish Bones: 07/20/20 06:20 07/20/20 06:20 Other Labs: Lab Results x24hrs 07/20/20 07/20/20 07/19/20 Range/Units 06:20 06:20 19:07 WBC 8.5 (4.8-10.8) x10^3/uL RBC 2.78 L (4.20-5.40) 10^6/uL Hgb 8.2 L 7.9 L (12.0-16.0) g/dL Hct 25.9 L 25.3 L (37.0-47.0) % MCV 93.2 (81.0-99.0) fL MCH 29.5 (27.0-31.0) pg MCHC 31.7 L (32.0-36.0) g/dL RDW 13.0 (12.0-15.0) % Plt Count 139 (130-450) 10^3/uL MPV 10.3 (7.9-10.8) fL Neut # (Auto) 5.2 (1.5-6.6) 10^3/uL Lymph # (Auto) 1.2 L (1.5-3.5) 10^3/uL [place] # (Auto) 0.9 (0.0-1.0) 10^3/uL Eos # (Auto) 1.1 H (0.0-0.7) 10^3/uL Baso # (Auto) 0.1 (0.0-0.1) 10^3/uL Absolute Nucleated RBC 0.00 x10^3/uL Band Neuts % (Manual) Not Reportable Abnorm Lymph % (Manual) Not Reportable Nucleated RBC % 0.0 /100WBC Neutrophils # (Manual) Not Reportable Lymphocytes # (Manual) Not Reportable Monocytes # (Manual) Not Reportable Eosinophils # (Manual) Not Reportable Basophils # (Manual) Not Reportable Differential Comment MANUAL=AUTO DIFF WBC Morphology NORMAL APPEARANCE (NORMAL) Platelet Estimate NORMAL (130-450,000) (NORMAL) Platelet Morphology NORMAL APPEARANCE (NORMAL) RBC Morph Micro Appear 1+ HYPOCHROMASIA (NORMAL) Sodium 129 L (135-145) mmol/L Potassium 4.2 (3.5-5.0) mmol/L Chloride 96 L (101-111) mmol/L Carbon Dioxide 24 (21-32) mmol/L Anion Gap 9.0 (6-13) BUN 25 H (6-20) mg/dL Creatinine 1.0 (0.4-1.0) mg/dL Estimated GFR (MDRD) 53 L (>89) Glucose 100 (70-100) mg/dL Calcium 8.2 L (8.5-10.3) mg/dL - Other Results/Comments Other Results/Comments: EXAM: Dressing intact. Moves toes well; sensation intact. Good cap filling. Up in chair Sepsis Event Note (H) - Evaluation Current Stage of Sepsis: Ruled out Assessment/Plan - Problem List (1) Fracture, intertrochanteric, right femur Impression: Satis post op PLAN: Mobilize as tolerated. Follow up as outlined in previous note. If discharged home, outpt PT for walker ambulation - WBAT on right 2 x week x 2-4 weeks. Qualifiers: Encounter type: subsequent encounter
[2020-07-20] MEDS: OMEGA-3 ACID ETHYL ESTERS 1 GM CAPSULE PO SCH (10:07)
[2020-07-20] MEDS: oxyCODONE 5 MG TABLET PO PRN ×2 (10:29→20:13)
[2020-07-20] MEDS: DOCUSATE SODIUM 100 MG CAPSULE PO PRN (16:20)
--- NOTE | 2020-07-20 17:08 | PROVIDER PROGRESS NOTE ---
Subjective - Prog Note Date Prog Note Date: 07/20/20 Prog Note Time: 17:09 - Subjective Pt reports feeling: Improved Subjective: Asking about getting an angiogram for the abdominal aortic aneurysm. Otherwise no chest pain no palpitations no shortness of breath. Pain is controlled. A little bit leery about total weightbearing on the affected leg Current Medications - Current Medications Current Medications: Active Medications Acetaminophen (Acetaminophen 325 Mg Tablet) 650 mg PO Q4HR PRN PRN Reason: Pain 1 to 4 Last Admin: 07/20/20 16:09 Dose: 650 mg Documented by: Aspirin (Aspirin 325 Mg Tablet) 325 mg PO BIDWM [facility] Last Admin: 07/20/20 16:10 Dose: 325 mg Documented by: Calcium Carbonate/Glycine (Calcium Carbonate Chew 500 Mg Tablet) 500 mg PO BID [facility] Last Admin: 07/20/20 08:45 Dose: 500 mg Documented by: Cholecalciferol (Cholecalciferol 25 Mcg Tablet) 25 mcg PO DAILY [facility] Last Admin: 07/20/20 08:43 Dose: 25 mcg Documented by: Diphenhydramine HCl (Diphenhydramine Elixir 25 Mg/10 Ml Udc) 12.5 mg PO Q6HR PRN PRN Reason: ITCHING Last Admin: 07/20/20 05:23 Dose: 12.5 mg Documented by: Docusate Sodium (Docusate Sodium 100 Mg Capsule) 100 mg PO BID PRN PRN Reason: Constipation Last Admin: 07/20/20 16:20 Dose: 100 mg Documented by: Hydralazine HCl (Hydralazine Inj 20 Mg/Ml Vial) 10 mg IVP QID PRN PRN Reason: Hypertensive Emergency Ketorolac Tromethamine (Ketorolac 15 Mg/Ml Vial) 15 mg IVP Q6HR PRN PRN Reason: PAIN Stop: 07/24/20 11:01 Last Admin: 07/20/20 16:10 Dose: 15 mg Documented by: Morphine Sulfate (Morphine 2 Mg/Ml Carpuject) 2 mg IVP Q2HR PRN PRN Reason: Pain 8 to 10 [id number] Ethyl Esters ([place]-3 Acid Ethyl Esters 1 Gm Capsule) 1 gm PO DAILY [facility] Last Admin: 07/20/20 10:07 Dose: 1 gm Documented by: Ondansetron HCl (Ondansetron Odt 4 Mg Tablet) 4 mg TL Q6HR PRN PRN Reason: Nausea / Vomiting Ondansetron HCl (Ondansetron 4 Mg/2 Ml Vial) 4 mg IVP Q6HR PRN PRN Reason: Nausea / Vomiting Oxycodone HCl (Oxycodone 5 Mg Tablet) 5 mg PO Q4HR PRN PRN Reason: Pain 5 to 7 Last Admin: 07/20/20 10:29 Dose: 5 mg Documented by: Polyethylene Glycol (Polyethylene Glycol 3350 17 Gm Packet) 17 gm PO DAILY [facility] Last Admin: 07/20/20 08:43 Dose: 17 gm Documented by: Prochlorperazine Edisylate (Prochlorperazine 10 Mg/2 Ml Vial) 10 mg IVP Q6HR PRN PRN Reason: Nausea / Vomiting Senna (Senna 8.6 Mg Tablet) 17.2 mg PO Q12H PRN PRN Reason: Constipation Last Admin: 07/20/20 08:43 Dose: 17.2 mg Documented by: Sodium Chloride (Sodium Chloride Flush 0.9% 10 Ml Syringe) 10 ml IVP 0100,0900,1700 [facility] Last Admin: 07/20/20 16:10 Dose: 10 ml Documented by: Sodium Chloride (Sodium Chloride Flush 0.9% 10 Ml Syringe) 10 ml IVP PRN PRN PRN Reason: NEEDED PER PROVIDER ORDERS Last Admin: 07/19/20 18:40 Dose: 10 ml Documented by: Aspirin [Aspirin EC] 81 mg PO DAILY 07/17/20 Gabapentin [Neurontin] 200 mg PO QPM 07/17/20 Metoprolol Succinate [Toprol Xl] 12.5 mg PO DAILY 07/17/20 Omeprazole [PriLOSEC] 20 mg PO DAILY 07/17/20 Objective - Vital Signs/Intake & Output Reviewed Vital Signs: Yes Vital Signs: Vital Signs x48h Temp Pulse Resp BP Pulse Ox 07/20/20 15:38 36.8 C 65 18 135/54 H 96 07/20/20 14:00 36.8 C 65 20 111/42 L 95 Intake & Output: Intake & Output 07/17/20 07/18/20 07/19/20 07/20/20 23:59 23:59 23:59 23:59 Intake Total 400 2775.000 2923.333 1060 Output Total 500 1900 1550 350 Balance -100 064.807 4889.333 710 - Objective General Appearance: positive: No acute distress, Alert, Other (thin alert elderly female who has daughter at bedside.) Eyes Bilateral: positive: PERRL ENT: positive: Pharynx nml Neck: positive: No JVD. negative: Stiff neck, Carotid bruit Respiratory: positive: No respiratory distress. negative: Wheezes, Rales, Rhonchi Cardiovascular: positive: Regular rate & rhythm, Systolic murmur. negative: Gallop/S4, Friction rub Abdomen: positive: Non-tender, No organomegaly, Nml bowel sounds, No distention Skin: positive: Warm, Dry Extremities: positive: No pedal edema Neurologic/Psychiatric: positive: Oriented x3, CN's nml (2-12), Motor nml - Lab Results Fish Bones: 07/20/20 06:20 07/20/20 06:20 Other Labs: Lab Results x24hrs 07/20/20 07/20/20 07/19/20 Range/Units 06:20 06:20 19:07 WBC 8.5 (4.8-10.8) x10^3/uL RBC 2.78 L (4.20-5.40) 10^6/uL Hgb 8.2 L 7.9 L (12.0-16.0) g/dL Hct 25.9 L 25.3 L (37.0-47.0) % MCV 93.2 (81.0-99.0) fL MCH 29.5 (27.0-31.0) pg MCHC 31.7 L (32.0-36.0) g/dL RDW 13.0 (12.0-15.0) % Plt Count 139 (130-450) 10^3/uL MPV 10.3 (7.9-10.8) fL Neut # (Auto) 5.2 (1.5-6.6) 10^3/uL Lymph # (Auto) 1.2 L (1.5-3.5) 10^3/uL [place] # (Auto) 0.9 (0.0-1.0) 10^3/uL Eos # (Auto) 1.1 H (0.0-0.7) 10^3/uL Baso # (Auto) 0.1 (0.0-0.1) 10^3/uL Absolute Nucleated RBC 0.00 x10^3/uL Band Neuts % (Manual) Not Reportable Abnorm Lymph % (Manual) Not Reportable Nucleated RBC % 0.0 /100WBC Neutrophils # (Manual) Not Reportable Lymphocytes # (Manual) Not Reportable Monocytes # (Manual) Not Reportable Eosinophils # (Manual) Not Reportable Basophils # (Manual) Not Reportable Differential Comment MANUAL=AUTO DIFF WBC Morphology NORMAL APPEARANCE (NORMAL) Platelet Estimate NORMAL (130-450,000) (NORMAL) Platelet Morphology NORMAL APPEARANCE (NORMAL) RBC Morph Micro Appear 1+ HYPOCHROMASIA (NORMAL) Sodium 129 L (135-145) mmol/L Potassium 4.2 (3.5-5.0) mmol/L Chloride 96 L (101-111) mmol/L Carbon Dioxide 24 (21-32) mmol/L Anion Gap 9.0 (6-13) BUN 25 H (6-20) mg/dL Creatinine 1.0 (0.4-1.0) mg/dL Estimated GFR (MDRD) 53 L (>89) Glucose 100 (70-100) mg/dL Calcium 8.2 L (8.5-10.3) mg/dL Sepsis Event Note (H) - Evaluation Current Stage of Sepsis: Ruled out Assessment/Plan - Problem List (1) Fracture, intertrochanteric, right femur Impression: Qualifiers: Encounter type: subsequent encounter Assessment/Plan: Patient had a mechanical fall, X-ray show right intertrochanteric fracture. She is now postop day 2. She is walking the hallways with a walker. Slowly but doing it. Pain is controlled. She still little afraid about complete weightbearing on the right leg. She is adamant she does not want to go to a rehab facility. She would like to go home. Physical therapy says she is doing very well. She may be able to go home tomorrow. (2) Heart murmur, systolic Conclusion/Plan: Echo shows no aortic stenosis, normal EF, moderate pulmonary hypertension RVSP 57 mmHG, Mild tricuspid regurgitation. (3) HTN (hypertension) Conclusion/Plan: Blood pressure varies between 105 systolic. Highest has been is 147 systolic today. For the most part controlled. (4) Skin rash Conclusion/Plan: Patient reported she has history of skin rash, she was seen by 9 emergency crew supervisor but so far nobody figure out what kind of skin rash. She also report skin rash with itching. She is followed up by dermatology now. (5) History of abdominal aortic aneurysm (AAA) Conclusion/Plan: Daughter asked us today if we could do the CT angiogram. After a while decided that she would rather just take mom to her usual provider at [place] to get it done there. That will be due Wednesday. Discharge Wednesday.
[2020-07-20] MEDS: SODIUM CHLORIDE FLUSH 0.9% 10 ML SYRINGE IVP PRN (23:08)
[2020-07-21 05:50] LABS: BASOPHILS # (AUTO) 0.1 10^3/uL (0.0-0.1); BASOPHILS % (AUTO) 0.8 %; EOSINOPHILS % (AUTO) 17.3 %; HGB - HEMOGLOBIN 7.8 g/dL (12.0-16.0); LYMPHOCYTES # (AUTO) 0.8 10^3/uL (1.5-3.5); LYMPHOCYTES % (AUTO) 13.1 %; MEAN CORPUSCULAR HEMOGLOBIN 29.1 pg (27.0-31.0); MEAN CORPUSCULAR HGB CONC 31.6 g/dL (32.0-36.0); MEAN CORPUSCULAR VOLUME 92.2 fL (81.0-99.0); MONOCYTES # (AUTO) 0.5 10^3/uL (0.0-1.0); MONOCYTES % (AUTO) 8.1 %; NEUTROPHILS # (AUTO) 3.6 10^3/uL (1.5-6.6); NEUTROPHILS % (AUTO) 60.4 %; PLT - PLATELET COUNT 159 10^3/uL (130-450); RED BLOOD COUNT 2.68 10^6/uL (4.20-5.40)
[2020-07-21 05:55] LABS: CALCIUM 8.6 mg/dL (8.5-10.3)
[2020-07-21 06:11] LABS: PLATELET ESTIMATE, MANUAL NORMAL (130-450,000) (NORMAL); PLATELET MORPHOLOGY NORMAL APPEARANCE (NORMAL); RBC MORPHOLOGY (MULTIPLE) 1+ HYPOCHROMASIA (NORMAL)
[2020-07-21] MEDS: SODIUM CHLORIDE FLUSH 0.9% 10 ML SYRINGE IVP SCH ×2 (06:56→08:53)
[2020-07-21] MEDS: diphenhydrAMINE ELIXIR 25 MG/10 ML UDC PO PRN (06:57)
[2020-07-21] MEDS: oxyCODONE 5 MG TABLET PO PRN (07:06)
[2020-07-21] MEDS: ASPIRIN 325 MG TABLET PO SCH (08:03)
--- NOTE | 2020-07-21 08:34 | Discharge Plan ---
Discharge Plan Problem Reviewed?: Yes Disposition: Home Health Service Condition: Good Prescriptions: oxyCODONE [Roxicodone] 5 mg PO Q4HR PRN #30 tablet PRN Reason: Pain 5 to 7 Ondansetron Odt [Zofran Odt] 4 mg TL Q6HR PRN #10 tablet PRN Reason: Nausea / Vomiting [place]-3 Acid Ethyl Esters [Lovaza] 1 gm PO DAILY #30 capsule Senna [Senokot] 17.2 mg PO Q12H PRN #10 tablet PRN Reason: Constipation Shower Restrictions: Yes (Keep wound clean and dry. Dry immediately, no bath soaks) Driving Restrictions: Yes (No driving until cleared by Ortho at next visit) Assistance Devices: Walker Weight Bearing: Full Weight (as tolerated) Health Concerns: You fell in the parking lot while shopping. Unfortunately you broke your hip. You had a repair. You have done very well after surgery and are now weightbearing as tolerated. You have done well enough that you do not need to go to a rehab facility. You did develop a little bit of anemia in the postoperative setting. That is a normal expectation. You had no other complications during her stay. Plan of Treatment: 1. See the orthopedic surgery office in 10 to 15 days. 2. They will remove the bandage. If the bandage gets dirty while you are at home, you can take it off, clean the skin with soap and water, and cover it with a clean bandage. 3. You will be sent home with pain medicine. 1 tablet every 4-6 hours. Take a stool softener or senna tablet if you get constipated. 4. For blood clot prophylaxis, you will be on 1 full aspirin a day. That is 325 mg tablet a day. 5. Since you will not be transferred to a rehab facility, we are asking that a home health agency see you for physical therapy. 6. By definition you now have osteoporosis because you fractured that femur. You need to be on calcium 500 mg 3 times a day. You also need to take a minimum of 802,000 international units of vitamin D daily. We also asked you to discuss this with your primary care provider. You may be a candidate for Fosamax yearly injection, or Prolia subcutaneously twice a year. Care Goals: To resume normal ambulation in the next 3 to 4 weeks. And to be pain-free while you do it. Assessment: Daughter has been with mom this entire stay. Patient and daughter understand plan and will follow through. Follow-Up Care: Home Health - RN, Home Health - PT, Home Health - OT No Smoking: If you smoke, Please STOP! Call for help. Follow-up with: Soha Villegas MD [Primary Care Provider] -
[2020-07-21] MEDS: CHOLECALCIFEROL 25 MCG TABLET PO SCH (09:14)
[2020-07-21] MEDS: DOCUSATE SODIUM 100 MG CAPSULE PO PRN (09:14)
[2020-07-21] MEDS: OMEGA-3 ACID ETHYL ESTERS 1 GM CAPSULE PO SCH (09:16)
[2020-07-21] MEDS: CALCIUM CARBONATE CHEW 500 MG TABLET PO SCH (09:16)
[2020-07-21] MEDS: polyethylene glycoL 3350 17 GM PACKET PO SCH (09:18)
[2020-07-21 09:52] VITALS: BP 107/49
--- NOTE | 2020-07-21 17:49 | DISCHARGE SUMMARY ---
Discharge Summary Admit Date: 07/17/20 Discharge Date: 07/21/20 Discharging Provider: Kimmy Del Valle MD Primary Care Provider: Soha Carpio MD Code Status: Attempt Resuscitation Condition at Discharge: Good Discharge Disposition: [facility] - DIAGNOSES Discharge Diagnoses with Status of Each Condition: 1. Displaced intertrochanteric fracture of the right femur 2. Fall in parking lot 3. Cardiac murmur 4. Hypertension 5. Nonspecific rash 6. Abdominal aortic aneurysm 7. Osteoporosis 8. acute postoperative blood loss anemia. - HPI History of Present Illness: This is a 85-year-old woman with a Past medical history of skin rash with consisting itching, Hypertension, AAA not yet surgically addressed yet, she has plan to image study in 07/26/20 to followup with her surgeon, Who present to ER for evaluation of her fall. Patient reported she brought a new car. she park her car in the parking lot of [employer] and looking around with the car. she believe she tripped over her feet and landed on her right side. She denies any other injury. She denies loss of conscious when she had a fall. she Reported she does not hit his head or neck. She reported she has pain in the area of the right hi p, and pain was down to the knee. X-ray of the hip show right intertrochanteric fracture. ER provider discussed the case with [facility] who think we can go ahead to have surgery for pt. ER provider discussed the case by phone with Dr. Walter Bearden, who would like pt has n.p.o. after midnight and have fixation on tomorrow. Patient COVID-19 test was negative. Routine laboratory tests show slightly elevated WBC, Likely reactive, INR is 1.1. Patient is afebrile, patient had elevated blood pressure. Patient was given lisinopril and metoprolol blood pressure in the ER. pt denies fever, chill, chest pain, shortness of breath, abdominal pain, headache pain. We will admit this patient and plan surgery on to jeong. 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 acute mod displaced right intertrochanteric femur fracture 2. Pelvic plain film w same but also rim of calcified aortia indicating aneurysm 3. Echo with normal EF and LVH. 4. Closed reduction and intertan nailing of right femur fx - HOSPITAL COURSE Hospital Course: She did very well postop and progressed quickly with PT. She declined transfer for rehab and PT endorsed the idea of her returning to home with PT. Post op mild acute blood loss anemia but no transfusion required. She was inquiring to see if her AAA angiogram could be done here and we were in the process of verify that when she felt she would just go home and get the angio 07/22/20 at [facility] as already scheduled. Blood pressure was well controlled with home meds. We have started Calcium and Vit D for her osteoporosis but recommend Reclast or Prolia in the outpatient setting. She was discharged in stable condition. She is 5'4" and weighs 58 kg. Alert, oriented. Ambulating in hallways for several hundred feet with a walker and hip pain is controlled. Clear lungs. RRR with KELIN (Echo was done for the murmur and it's a flow murmur). Abd benign. Legs without edema. FROM except for right hip. Greater than 30 minutes was spent coordinating discharge - ALLERGIES Allergies/Adverse Reactions: Allergies Allergy/AdvReac Type Severity Reaction Status Date / Time iodine AdvReac Itching Verified 07/17/20 17:12 latex AdvReac Rash Verified 07/17/20 19:19 - MEDICATIONS Home Medications: Ambulatory Orders Medication Instructions Recorded Confirmed Gabapentin [Neurontin] 200 mg PO QPM 07/17/20 07/17/20 Metoprolol Succinate [Toprol Xl] 12.5 mg PO DAILY 07/17/20 07/17/20 Omeprazole [PriLOSEC] 20 mg PO DAILY 07/17/20 07/17/20 Acetaminophen [Tylenol] 650 mg PO Q4HR PRN tablet 07/21/20 Aspirin [Rachna] 325 mg PO DAILYWM tablet 07/21/20 Calcium Carbonate [Tums (Calcium 500 mg PO BID tablet 07/21/20 Carbonate 500mg)] Cholecalciferol [Vitamin D3] 25 mcg PO DAILY tablet 07/21/20 [place]-3 Acid Ethyl Esters [Lovaza] 1 gm PO DAILY #30 capsule 07/21/20 Ondansetron Odt [Zofran Odt] 4 mg TL Q6HR PRN #10 tablet 07/21/20 Senna [Senokot] 17.2 mg PO Q12H PRN #10 tablet 07/21/20 oxyCODONE [Roxicodone] 5 mg PO Q4HR PRN #30 tablet 07/21/20 - LABS Result Diagrams: 07/21/20 05:40 07/21/20 05:40 - SEPSIS Current Stage of Sepsis: Ruled out
--- OUTSIDE RECORDS SUMMARY | 2020-07-24 00:50 | EXTERNAL MEDICAL SUMMARY RPT | Continuity of Care Document ---
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 NEOPLASM OF BREAST 2015-09-09 11:35 ENCNTR SCREEN MAMMOGRAM FOR [facility] MALIGNANT NEOPLASM OF BREAST 2015-09-09 11:35 FAMILY HISTORY OF MALIGNANT [facility] NEOPLASM OF BREAST 2015-09-09 11:35 ACQUIRED ABSENCE OF LEFT BREAST [facility] AND NIPPLE 2016-09-10 10:28 ENCNTR SCREEN MAMMOGRAM FOR [facility] MALIGNANT NEOPLASM OF BREAST 2016-09-10 10:28 PERSONAL HISTORY OF MALIGNANT [facility] NEOPLASM OF BREAST 2016-09-10 10:28 ACQUIRED ABSENCE OF LEFT BREAST [facility] AND NIPPLE 2017-06-26 08:51 OTHER PRURITUS [facility] 2017-06-26 08:51 RASH AND OTHER NONSPECIFIC SKIN [facility] ERUPTION 2017-07-01 08:51 CHRONIC OBSTRUCTIVE PULMONARY [facility] DISEASE, UNSPECIFIED 2017-07-01 08:51 OTHER NONSPECIFIC ABNORMAL FINDING 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 2017-10-20 10:46 ENCNTR SCREEN MAMMOGRAM FOR [facility] MALIGNANT NEOPLASM OF BREAST 2017-10-20 10:46 FAMILY HISTORY OF MALIGNANT [facility] NEOPLASM OF BREAST 2017-10-20 10:46 PERSONAL HISTORY OF MALIGNANT [facility] NEOPLASM OF BREAST 2017-10-20 10:46 ACQUIRED ABSENCE OF LEFT BREAST [facility] AND NIPPLE 2020-05-21 10:34 Eosinophilia, unspecified [facility] 2020-05-21 10:34 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], [facility]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 10:34 Other eosinophilia [facility] 2020-05-21 10:34 Interstitial pulmonary disease, [facility] 2020-05-28 08:54 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], [facility] unspecified 2020-05-28 08:54 Interstitial pulmonary disease, [facility] 2020-05-28 08:54 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 [Churg-Elvia] 2020-06-11 09:40 Eosinophilia, unspecified [facility] anush[facility] 2020-06-11 09:40 Other eosinophilia [facility] 2020-06-11 09:40 [facility] Allergies date description facility NO KNOWN ENVIRONMENTAL ALLERGIES [facility] CONTRAST MEDIUM [facility] Medic al [place] DOXYCYCLINE [facility] Medic al Center SULFA (SULFONAMIDE ANTIBIOTICS) [facility] NO ALLERGY INFORMATION AVAILABLE [facility] OPIOIDS - MORPHINE ANALOGUES [facility] NO KNOWN ALLERGIES [facility] Medic al Center CODEINE [facility] Medic al Center CLINDAMYCIN [facility] Medic al [place] AMOXICILLIN [facility] Medic al Center iodine [facility] Medic al Center latex [facility] Medic [facility] NO KNOWN ENVIRONMENTAL ALLERGIES [facility] SULFA ANTIBIOTICS [facility] Medic al [place] NO ALLERGY INFORMATION ON FILE [facility] IBUPROFEN [facility] Medic al Center PENICILLIN [facility] Medic al Center SULFA (SULFONAMIDE ANTIBIOTICS) [facility] NO KNOWN ALLERGIES [facility] CODEINE [facility] HYDROCODONE [facility] DOXYCYCLINE [facility] DAPSONE [facility] CEFTRIAXONE [facility] LATEX [facility] Penicillins [facility] iodine [facility] tramadol [facility] latex [facility] Results Social History date description facility [id number]
== END 2020-07-21 10:17 | disposition home health service (06) | DRG 481 ==
LOC: EDUNIT# → SDS 14:36 → MS3 15:58
PROVIDERS: ADMIT Specialist; ATTEND Specialist
PROC: 0QS604Z Reposition Right Upper Femur with Internal Fixation Device, Open Approach (ICD-10-PCS; principal; 2020-07-18 14:00)
DX: S72.141A Displaced intertrochanteric fracture of right femur, initial encounter for closed fracture (principal); D62 Acute posthemorrhagic anemia; W18.30XA Fall on same level, unspecified, initial encounter; Y92.481 Parking lot as the place of occurrence of the external cause; I10 Essential (primary) hypertension; I71.4 Abdominal aortic aneurysm, without rupture; R01.1 Cardiac murmur, unspecified; M81.0 Age-related osteoporosis without current pathological fracture; R21 Rash and other nonspecific skin eruption; Z79.82 Long term (current) use of aspirin; Z79.899 Other long term (current) drug therapy; Z20.828 Contact with and (suspected) exposure to other viral communicable diseases
CPT/HCPCS: 36415; 80048; 81001; 82607; 82728; 83540; 83615; 84466; 85014; 85018; 85025; 85045; 93306; 97110; 97161; 97165; 97530; A9270; C1713; J0690; J7120; 0202U; 85610; 86850; 86900; 86901; 87086; 93005; 99283; 99285

== ENCOUNTER 2020-08-11 02:10 | Emergency (ER) | payer MEDICARE, BC ==
--- NOTE | 2020-08-11 02:57 | ED Physician Documentation ---
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 brought in by private vehicle (daughter drove patient to ED). she c/o right hip pain as well as right lower leg pain. she sustained right hip fracture 07/17/20 and underwent ORIF 07/18. 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: 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: Mastectomy - Present Medications Home Medications: Ambulatory Orders Medication Instructions Recorded Confirmed Gabapentin [Neurontin] 200 mg PO QPM 07/17/20 08/11/20 Metoprolol Succinate [Toprol Xl] 12.5 mg PO DAILY 07/17/20 08/11/20 Acetaminophen [Tylenol] 650 mg PO Q4HR PRN tablet 07/21/20 08/11/20 Aspirin [Rachna] 325 mg PO DAILYWM tablet 07/21/20 08/11/20 Cholecalciferol [Vitamin D3] 25 mcg PO DAILY tablet 07/21/20 08/11/20 [place]-3 Acid Ethyl Esters [Lovaza] 1 gm PO DAILY #30 capsule 07/21/20 08/11/20 Calcium Carbonate [Tums (Calcium 500 mg PO DAILY 08/11/20 08/11/20 Carbonate 500mg)] - Allergies Allergies/Adverse Reactions: Allergies Allergy/AdvReac Type Severity Reaction Status Date / Time nickel Allergy Rash Verified 08/11/20 02:18 iodine AdvReac Itching Verified 08/11/20 02:17 latex AdvReac Rash Verified 08/11/20 02:17 - Social History Does the pt smoke?: No Smoking Status: Former smoker Does the pt drink ETOH?: No Does the pt have substance abuse?: No - POLST Patient has POLST: No PD ED PE NORMAL - Vitals Vital signs reviewed: Yes - General General: Alert and oriented X 3, Well developed/nourished, Other (appears to be in mild painful distress) - Abdomen Abdomen: Soft, Non tender - Derm Derm: Warm and dry, Other (right lower leg has echymosis that appears old (yellow/brown discoloration)) - Extremities Extremities: No deformity PD ED PE EXPANDED - Extremities Extremities: Other (right hip tender to palpation. surgical sites are c/d/i, nearly healed and appear c/w appropriate appearance for recent surgery. there is TTP right [id number] tib/fib, anterolaterally without deformity or crepitus) Results - Vitals Vitals: Vital Signs - 24 hr 08/11/20 08/11/20 02:11 05:04 Temperature 36 C L Heart Rate 56 L 60 Respiratory 20 15 Rate Blood Pressure 185/67 H 132/64 H O2 Saturation 97 94 Oxygen O2 Source Room air - Rads (name of study) right hip xrays Radiology: Prelim report reviewed, See rad report right tib/fib xrays Radiology: Prelim report reviewed, See rad report PD MEDICAL DECISION MAKING - ED course Complexity details: reviewed old records, reviewed results, re-evaluated patient, considered differential, d/w patient ED course: no acute findings on right hip xrays nor on right tib/fib xrays. right hip hardware is in place. she had good relief of her pain with 5mg oxycodone although this did cause some lightheadedness when she stood to use bedside commode. She is reassured by the xray results and is comfortable with d/c home. She was prescribed oxycodone post-operatively and says she still has the entire rx at home (had not taken any) Departure - Departure Disposition: Home, Self Care Clinical Impression: Fall, Contusion of hip, right, Lip laceration Condition: Good Instructions: ED Contusion Hip, ED Prevention Fall Follow-Up: Soha Villegas MD [Primary Care Provider] - Discharge Date/Time: 08/11/20 05:39
[2020-08-11] MEDS ORDERED: oxyCODONE 5 MG TABLET PO STA (03:06)
[2020-08-11 05:05] VITALS: BP 132/64
--- NOTE | 2020-08-11 07:41 | XRAY Report ---
PROCEDURE: Hip w/Pelvis 2-3V RT INDICATIONS: fall, recent ORIF right hip TECHNIQUE: AP pelvis with lateral view(s) of the right hip(s). COMPARISON: 07/17/2020, correlation is also made with distal lower extremity plain films 08/11/2020 FINDINGS: Bones: Right proximal femur hardware is seen. The femur hardware is intact. There is a previously se en lesser trochanter avulsion fracture. No new fracture is seen. Likely remote left inferior pubic ramus fracture again seen. Note is made of age-appropriate degenerative change of the lower lumbar spine. Soft tissues: The visualized bowel gas pattern is normal. No suspicious soft tissue calcifications. Atherosclerotic calcification is seen. Likely distal abdominal aortic aneurysm again seen. IMPRESSION: Unremarkable postoperative change with prior posttraumatic change. No new fracture. Atherosclerotic calcification is seen. Likely distal abdominal aortic aneurysm again seen. Note: No significant discrepancy from the preliminary report. Reviewed by: Antonio Perez MD on 08/11/2020 6:40 AM [place] Approved by: Antonio Perez MD on 08/11/2020 6:40 AM [facility] Station ID: [id number]
--- NOTE | 2020-08-11 07:42 | XRAY Report ---
PROCEDURE: Tib/Fib RT INDICATIONS: fall, pain, tenderness TECHNIQUE: 2 views of the tibia and fibula were acquired. COMPARISON: Hip plain films 08/11/2020, prior plain films 07/17/2020 FINDINGS: Bones: No fractures or dislocations. No suspicious bony lesions. Age-appropriate degenerative nova ges are seen. A plantar calcaneal spur is incidentally noted. Soft tissues: No suspicious soft tissue calcifications or masses. Atherosclerotic calcification is seen. IMPRESSION: Degenerative changes, without an acute fracture. Note: No significant discrepancy from the preliminary report. Reviewed by: Antonio Perez MD on 08/11/2020 6:41 AM [place] Approved by: Antonio Perez MD on 08/11/2020 6:41 AM [facility] [[email or web address]] Station ID: [id number]
== END 2020-08-11 05:39 | disposition home or self-care (01) ==
LOC: ED 02:10
DX: S70.01XA Contusion of right hip, initial encounter (principal); S01.511A Laceration without foreign body of lip, initial encounter; M79.661 Pain in right lower leg; W01.0XXA Fall on same level from slipping, tripping and stumbling without subsequent striking against object, initial encounter; Y93.01 Activity, walking, marching and hiking; Y92.003 Bedroom of unspecified non-institutional (private) residence as the place of occurrence of the external cause; R42 Dizziness and giddiness; T40.2X5A Adverse effect of other opioids, initial encounter; Y92.538 Other ambulatory health services establishments as the place of occurrence of the external cause; M77.31 Calcaneal spur, right foot; I10 Essential (primary) hypertension; Z79.82 Long term (current) use of aspirin; Z87.891 Personal history of nicotine dependence
CPT/HCPCS: 73502; 73590; 99282; 99283; A9270

== ENCOUNTER 2020-09-16 07:00 | Outpatient (CLI) | payer MEDICARE, BC ==
--- NOTE | 2020-09-16 09:33 | XRAY Report ---
PROCEDURE: Hip w/Pelvis 1V RT INDICATIONS: DISPLACED INTERTROCHANTERIC FX OF R FEMUR TECHNIQUE: AP pelvis with lateral view(s) of the bilateral hip(s). COMPARISON: 08/11/2020. FINDINGS: Postsurgical changes related to maddie and screw fixation of the proximal right femur in expected alignm ent. Hardware appears intact Lesser trochanter fracture fragment and heterotopic ossification. Possib le nondisplaced left inferior pubic ramus fracture which appears grossly unchanged. Lumbar spondylosi s and facet arthropathy. Mild to moderate bilateral hip joint generation Soft tissues: Scattered vascular calcifications. IMPRESSION: Expected postoperative alignment of right femur surgical fixation. Possible nondisplaced fracture of the left inferior pubic ramus, unchanged appearance. Findings are concordant with the preliminary kit dy interpretation provided at the time of the study. Reviewed by: Dimitrios Rodney MD on 09/16/2020 9:31 AM PST Approved by: Dimitrios Rodney MD on 09/16/2020 9:31 AM PST Station ID: [id number]
== END 2020-09-16 23:59 | disposition home or self-care (01) ==
LOC: DI.N 07:00
PROVIDERS: ATTEND Orthopaedic Surgery
DX: S72.141D Displaced intertrochanteric fracture of right femur, subsequent encounter for closed fracture with routine healing (principal)

== ENCOUNTER 2020-09-18 08:00 | Outpatient (CLI) | payer MEDICARE, BC | END 2020-09-18 23:59 | disposition home or self-care (01) | LOC: LAB.N 08:00 | PROVIDERS: ATTEND Family Medicine | DX: R35.0 Frequency of micturition (principal) | CPT/HCPCS: 87077; 87086; 87181 ==

== ENCOUNTER 2020-09-18 10:33 | Outpatient (CLI) | payer MEDICARE, BC | END 2020-09-18 10:34 | disposition home or self-care (01) | LOC: LAB.N 10:33 | PROVIDERS: ATTEND Family Medicine | DX: R35.0 Frequency of micturition (principal) ==

== ENCOUNTER 2020-11-14 08:14 | Outpatient (CLI) | payer MEDICARE, BC ==
--- NOTE | 2020-11-14 17:40 | XRAY Report ---
PROCEDURE: Hip w/Pelvis 2-3V RT INDICATIONS: RIGHT HIP PAIN TECHNIQUE: AP pelvis with lateral view(s) of the bilateral hip(s). COMPARISON: 09/16/2020. FINDINGS: Bones: Postsurgical changes compatible with ORIF of right femoral intertrochanteric fracture. Orthope dic hardware is intact. No lucencies at the bone-hardware interface. Displaced bone fragments and het erotopic calcification noted adjacent to the medial margin of the proximal right femur which is stabl e compared to prior examination. Pelvic ring appears intact. No suspicious bony lesions. Soft tissues: The visualized bowel gas pattern is normal. Atherosclerotic calcifications. Possible a bdominal aortic aneurysm. IMPRESSION: 1. ORIF of right femur fracture stable in appearance. 2. No acute fracture. 3. Possible abdominal aortic aneurysm. Recommend ultrasound of the abdominal aorta for further evalua tion if clinically indicated. Reviewed by: Lesa Arndt MD, PhD on 11/14/2020 5:39 PM PDT Approved by: Lesa Arndt MD, PhD on 11/14/2020 5:39 PM PDT Station ID: [id number]
== END 2020-11-14 23:59 | disposition home or self-care (01) ==
LOC: DI.N 08:14
PROVIDERS: ATTEND Orthopaedic Surgery
DX: S72.141A Displaced intertrochanteric fracture of right femur, initial encounter for closed fracture (principal)

== ENCOUNTER 2022-01-20 08:28 | Outpatient (CLI) | payer MEDICARE, BC ==
--- NOTE | 2022-01-21 08:11 | Mammography Report ---
UNILATERAL RIGHT DIGITAL SCREENING MAMMOGRAM 3D/2D: 01/20/2022 CLINICAL: Routine screening. Personal history of left breast cancer. Family history of breast cancer. Comparison is made to exams dated: 10/20/2017 mammogram, 09/10/2016 mammogram, 09/09/2015 mammogram, 08/13 mammogram, 08/31/2013 mammogram, and 08/29/2012 mammogram - [facility]. There are scattered fibroglandular elements in right breast. No significant masses, calcifications, or other findings are seen in the breast. There has been no significant interval change. IMPRESSION: NEGATIVE There is no mammographic evidence of malignancy. A 1 year screening mammogram is recommended. This exam was interpreted at Station ID: [id number]. NOTE: For mammograms, a report in lay terms will be sent to the patient. Approximately 15% of breast malignancies will not be visualized mammographically. In the management of a palpable breast mass, a negative mammogram must not discourage biopsy of a clinically suspicious lesion. Electronically Signed By: Arturo coppola/chaparro:01/20/2022 13:18:58 ACR BI-RADS Category 1: Negative [id number] PARENCHYMAL PATTERN: (A) - The breast(s) demonstrate(s) scattered fibroglandular densities. BI-RADS CATEGORY: (1) - 1 RECOMMENDATION: (ANNUAL) - Recommend routine annual screening mammography. [id number] 1 year screening LATERALITY: (B)
== END 2022-01-20 08:29 | disposition home or self-care (01) ==
LOC: DI.N 08:28
PROVIDERS: ATTEND Family Medicine
DX: Z12.31 Encounter for screening mammogram for malignant neoplasm of breast (principal); Z80.3 Family history of malignant neoplasm of breast; Z85.3 Personal history of malignant neoplasm of breast

== ENCOUNTER 2023-05-28 12:35 | Outpatient (CLI) | payer MEDICARE, BC ==
--- NOTE | 2023-05-28 15:42 | XRAY Report ---
PROCEDURE: Chest 2 View X-Ray INDICATIONS: COUGH, ACUTE LOWER RESPIRATORY TRACT INFECTION TECHNIQUE: 2 views of the chest were acquired. COMPARISON: Chest x-ray 07/01/2017 FINDINGS: Surgical changes and devices: Partially visualized vascular stent. Lungs and pleura: No pleural effusions or pneumothorax. Chronic interstitial changes. There is appea august of increased opacity overlying the right costophrenic angle compared to prior exam. Mediastinum: Mediastinal contours appear normal. Heart size is normal. Bones and chest wall: No suspicious bony lesions. Overlying soft tissues appear unremarkable. IMPRESSION: Chronic interstitial changes. Mild appearance of increased opacity overlying the right costophrenic a ngle. This could represent progressive scarring. However, developing airspace disease such as pneumon ia and/or atelectasis cannot be excluded. Reviewed by: Latoya Valentin MD on 05/28/2023 3:41 PM PST Approved by: Latoya Valentin MD on 05/28/2023 3:41 PM [facility] Station ID: [id number]
== END 2023-05-28 12:36 | disposition home or self-care (01) ==
LOC: DI 12:35
PROVIDERS: ATTEND Physician Assistant Medical
DX: J22 Unspecified acute lower respiratory infection (principal); R05.9 Cough, unspecified

== ENCOUNTER 2025-05-06 19:48 | Inpatient (IN) ==
--- NOTE | 2025-05-06 19:59 | ED Physician Documentation ---
History of Present Illness Stated complaint Stated Complaint: AMS Chief complaint Chief Complaint: Neuro History obtained from History obtained from: Patient and EMS Additonal information Additional information: She had recent left hip replacement I think for a fracture at [facility] by Dr. Cabrera. Now at [facility] on [place] for the last week or so and not doing well. She is been sleeping a lot and confused. She thinks she is having good bowel movements. Had a postvoid residual reportedly on straight cath of 1200 mL this evening. She has no specific complaints now. She is accompanied by her son and daughter. Vikash Coma Scale Assess Eye opening: Spontaneous Verbal response: Confused Motor response: Obeys Commands Total score: 14 Meds/Allgy Home Medications Ambulatory Orders Medication Instructions Recorded Confirmed metoprolol succinate 25 mg 12.5 mg PO DAILY 07/17/20 1 tablet,extended release 24 hr aspirin 325 mg tablet 325 mg PO DAILYWM 07/21/20 1 omega-3 acid ethyl esters 1 gram 1 g PO DAILY #30 caps 07/21/20 05/06/25 capsule acetaminophen 325 mg tablet 650 mg PO Q8HR PRN Pain 1 to 4 05/06/25 05/06/25 betamethasone dipropionate 0.05 % 1 applic topical BID PRN rash 05/06/25 05/06/25 topical ointment bisacodyl 10 mg rectal suppository 10 mg DE DAILY PRN constipation 05/06/25 05/06/25 (Laxative (bisacodyl)) cetirizine 10 mg capsule 10 mg PO DAILY PRN allergy s ymptoms 05/06/25 05/06/25 cholecalciferol (vitamin D3) 10 10 mcg PO DAILY 05/06/25 mcg (400 unit) capsule losartan 25 mg tablet 25 mg PO DAILY 05/06/2504/12 mineral oil 118 ml DE DAILY PRN constipa tion 05/06/25 05/06/25 omeprazole 20 mg capsule,delayed 20 mg PO DAILY 05/06/25 release oxycodone 5 mg tablet 5 mg PO Q4H PRN pain 5 05/06/25 polyethylene glycol 3350 17 17 g PO DAILY PRN constipa tion 05/06/25 05/06/25 gram/dose oral powder (Miralax) sennosides 8.6 mg capsule (senna) 8.6 - 17.2 mg PO CANDIDA LY PRN 05/06/25 05/06/25 constipation tolterodine 4 mg capsule,extended 4 mg PO DAILY 05/06/25 release 24 hr Allergies Allergies Allergy/AdvReac Type Severity Reaction Status Date / Time nickel Allergy Rash Verified 05/06/25 20:01 iodine AdvReac Itching Verified 05/06/25 20:01 latex AdvReac Rash Verified 05/06/25 20:01 PFSH Active Problems All Active Problems (Updated 05/06/25 @ 22:04 by ) Hyponatremia (Acute) Sepsis (Acute) Urinary tract infection (Acute) Right rib fracture (Acute) Contusion of rib on right side (Acute) Left hip pain (Acute) Back pain (Acute) Pre-op evaluation (Acute) History of abdominal aortic aneurysm (AAA) (Acute) Skin rash (Acute) HTN (hypertension) (Acute) Heart murmur, systolic (Acute) Fracture, intertrochanteric, right femur (Acute) Medical History Medical History (Updated 05/06/25 @ 22:04 by ) HTN (hypertension) Back pain Heart murmur Femur fracture, right Social History Social History Smoking Status: Unknown if ever smoked If you are a former smoker, when did you quit? (Date/Year): 1975 Number of Years Smoked: 20 How many cigarettes a day do you smoke? (20 cigarettes=1 Pk): 3 Do you dip or chew tobacco?: No Do you vape?: No Patient requests smoking cessation consult: No Initiate information on smoking cessation: No Do you feel safe in your home environment?: Yes History of physical, verbal, emotional, or financial abuse?: No ETOH Use: Frequency: Daily POLST Patient has POLST: No Exam Exam Vital Signs: Vital Signs x48h Temp Pulse Resp BP Pulse Ox 05/06/25 22:00 37.1 C 104 H 22 149/61 H 92 05/06/25 20:05 38.2 C H 104 H 16 91 L 05/06/25 19:48 36.5 C 105 H 16 134/67 H 91 L Constitutional She is awake alert but with some slow responses and confusion Eyes PERRL and EOMs intact bilaterally Respiratory breath sounds equal bilaterally, normal respiratory effort and clear to auscultation bilaterally Cardiovascular Mild resting tachycardia, regular without murmur Gastrointestinal abdomen soft to palpation and nontender to palpation Genitourinary Rectal examination was without fecal impaction or gross blood. Neurology GCS calculation - Eye opening: Spontaneous Verbal response: Confused Motor response: Obeys Commands Vikash Coma Scale total score: 14 Results Vitals Vitals: Vital Signs - 24 hr 05/06/25 19:48 05/06/25 20:05 05/06/25 22:00 Temperature 36.5 C 38.2 C H 37.1 C Temperature Source Temporal Artery Scan Oral Oral Pulse Rate 105 H 104 H 104 H Respiratory Rate 16 16 22 Blood Pressure 134/67 H 149/61 H O2 Saturation 91 L 91 L 92 O2 Source Room air Room air Room air Pain Intensity 2 0 Oxygen O2 Source Room air Labs Labs: Laboratory Tests 05/06/25 05/06/25 05/06/25 20:04 20:04 20:10 WBC 21.1 H RBC 3.45 L Hgb 10.0 L Hct 30.0 L MCV 87.0 MCH 29.0 MCHC 33.3 RDW 14.4 Plt Count 374 MPV 9.2 Neut # (Auto) 18.6 H Lymph # (Auto) 0.6 L Morrison # (Auto) 1.6 H Eos # (Auto) 0.0 Baso # (Auto) 0.1 Absolute Nucleated RBC 0.00 Band Neuts % (Manual) Not Reportable Abnorm Lymph % (Manual) Not Reportable Nucleated RBC % 0.0 Neutrophils # (Manual) Not Reportable Lymphocytes # (Manual) Not Reportable Monocytes # (Manual) Not Reportable Eosinophils # (Manual) Not Reportable Basophils # (Manual) Not Reportable Differential Comment MANUAL=AUTO DIFF WBC Morphology 1+ HYPERSEG NEUT Platelet Estimate NORMAL (130-450,000) Platelet Morphology NORMAL APPEARANCE RBC Morph Micro Appear 1+ HYPOCHROMASIA 1+ POLYCHROMASIA Sodium Potassium Chloride Carbon Dioxide Anion Gap BUN Creatinine Estimated GFR (MDRD) Glucose Lactic Acid Calcium Total Bilirubin AST ALT Alkaline Phosphatase Total Protein Albumin Globulin Albumin/Globulin Ratio Urine Color DARK YELLOW Urine Clarity CLOUDY Urine pH 6.5 Ur Specific [place] 1.010 Urine Protein 30 H Urine Glucose (UA) NEGATIVE Urine Ketones NEGATIVE Urine Occult Blood MODERATE Urine Nitrite POSITIVE H Urine Bilirubin NEGATIVE Urine Urobilinogen 0.2 (NORMAL) Ur Leukocyte Esterase LARGE H Urine RBC 6-10 H Urine WBC >25 H Urine WBC Clumps PRESENT Ur Squamous Epith Cells RARE Squamous Urine Bacteria Moderate H Ur Microscopic Review INDICATED Urine Culture Comments INDICATED Nasal Adenovirus (PCR) NOT DETECTED Nasal B. parapertussis DNA (PCR) NOT DETECTED Nasal Coronavir 229E PCR NOT DETECTED Nasal Coronavir HKU1 PCR NOT DETECTED Nasal Coronavir NL63 PCR NOT DETECTED Nasal Coronavir OC43 PCR NOT DETECTED Nasal Enterovir/Rhinovir PCR NOT DETECTED Nasal Influenza B PCR NOT DETECTED Nasal Influenza A PCR NOT DETECTED Nasal Parainfluen 1 PCR NOT DETECTED Nasal Parainfluen 2 PCR NOT DETECTED Nasal Parainfluen 3 PCR NOT DETECTED Nasal Parainfluen 4 PCR NOT DETECTED Nasal RSV (PCR) NOT DETECTED Nasal B.pertussis DNA PCR NOT DETECTED Nasal C.pneumoniae (PCR) NOT DETECTED Rai Human Metapneumo PCR NOT DETECTED Nasal M.pneumoniae (PCR) NOT DETECTED Nasal SARS-CoV-2 (PCR) NOT DETECTED 05/06/25 21:32 WBC RBC Hgb Hct MCV MCH MCHC RDW Plt Count MPV Neut # (Auto) Lymph # (Auto) Morrison # (Auto) Eos # (Auto) Baso # (Auto) Absolute Nucleated RBC Band Neuts % (Manual) Abnorm Lymph % (Manual) Nucleated RBC % Neutrophils # (Manual) Lymphocytes # (Manual) Monocytes # (Manual) Eosinophils # (Manual) Basophils # (Manual) Differential Comment WBC Morphology Platelet Estimate Platelet Morphology RBC Morph Micro Appear Sodium 122 L Potassium 5.1 H Chloride 90 L Carbon Dioxide 25 Anion Gap 7.0 BUN 24 H Creatinine 1.1 Estimated GFR (MDRD) 47 L Glucose 116 H Lactic Acid 1.6 Calcium 8.7 Total Bilirubin 1.5 H AST 101 H ALT 181 H Alkaline Phosphatase 407 H Total Protein 7.0 Albumin 3.4 Globulin 3.6 Albumin/Globulin Ratio 0.9 L Urine Color Urine Clarity Urine pH Ur Specific [place] Urine Protein Urine Glucose (UA) Urine Ketones Urine Occult Blood Urine Nitrite Urine Bilirubin Urine Urobilinogen Ur Leukocyte Esterase Urine RBC Urine WBC Urine WBC Clumps Ur Squamous Epith Cells Urine Bacteria Ur Microscopic Review Urine Culture Comments Nasal Adenovirus (PCR) Nasal B. parapertussis DNA (PCR) Nasal Coronavir 229E PCR Nasal Coronavir HKU1 PCR Nasal Coronavir NL63 PCR Nasal Coronavir OC43 PCR Nasal Enterovir/Rhinovir PCR Nasal Influenza B PCR Nasal Influenza A PCR Nasal Parainfluen 1 PCR Nasal Parainfluen 2 PCR Nasal Parainfluen 3 PCR Nasal Parainfluen 4 PCR Nasal RSV (PCR) Nasal B.pertussis DNA PCR Nasal C.pneumoniae (PCR) Rai Human Metapneumo PCR Nasal M.pneumoniae (PCR) Nasal SARS-CoV-2 (PCR) Rads (name of study) Chest x-ray showing fibrotic changes without acute disease: Relevant Findings:: Final report received and EMP independent interpretation of test (Fibrosis, NAD) PD Medical Decision Making ED course ED course: This is an 89-year-old febrile woman with recent hip replacement with confusion and urinary retention (1,200ml on straight cath reportedly at [facility] this evening). Reportedly had a positive urine dip at [facility]. Initial results show a white count of 21,000 in the setting of tachycardia this does represent sepsis. She was cultured up and order empiric cefepime. Sepsis time of onset was at about 8:40 PM when CBC was resulted. Spoke with RAJ Najera shortly before 9 PM for admission. Will obtain CT imaging of the belly to rule out urinary obstruction. On my independent review of her CT scan looks like she has a hiatal hernia, fibrotic changes of the lungs, nonspecific right kidney mass, stent in her aorta, the Sanabria catheter takes a weird path. We discussed this by phone with Dr. Bonner does not feel like she is acutely obstructed but will consult on her tomorrow. The patient and family are counseled as to the diagnosis and need for admission. This document was made in part using voice recognition software, while efforts are made to proofread this document, sound alike an grammatical errors may occur. Discharge Plan Discharge Patient Disposition: 66 [facility] DC/Xfer Clinical Impression: Urinary tract infection Qualifiers: Urinary tract infection type: acute pyelonephritis Qualified Code(s): N10 - Acute pyelonephritis Sepsis Qualifiers: Sepsis type: sepsis due to unspecified organism Sepsis acute organ dysfunction status: with acute organ dysfunction Severe sepsis acute organ dysfunction type: encephalopathy Severe sepsis shock status: without septic shock Qualified Code(s): A41.9 - Sepsis, unspecified organism
--- OUTSIDE RECORDS SUMMARY | 2025-05-06 20:06 | EXTERNAL MEDICAL SUMMARY RPT | Continuity of Care Document ---
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 Name Role Phone Unavailable Unavailable Unavailable Soha Villegas Unavailable Unavailable Allergies and Intolerances date description facility reaction severity 2025-04-20 14:31:04 [facility] (no reactio n) Severe 2025-04-21 09:13:53 [facility] (no reactio n) Severe 2025-04-20 14:31:04 [facility] (no reactio n) Severe 2025-04-21 09:13:53 [facility] (no reactio n) Severe 2025-04-20 14:31:04 [facility] (no reactio n) Mild 2025-04-21 09:13:53 [facility] (no reactio n) Mild 2025-04-20 14:31:04 [facility] (no reactio n) Severe 2025-04-21 09:13:53 [facility] (no reactio n) Severe Medications date description facility 2025-04-25 00:00 Oxycodone [facility] 2025-04-20 00:00 Betamethasone Dipropionate [facility] 2025-04-20 00:00 Ibandronate [facility] Problems date description facility 2025-04-20 00:00 Closed fracture of left hip [facility] 2025-04-20 14:31 Pure hypercholesterolemia, unsp ecified [facility] 2025-04-20 14:31 Mixed hyperlipidemia [facility]ital 2025-04-21 09:12 Displaced intertroch anteric fracture of right femur, [facility] 2025-04-21 09:14 Displaced intertroch anteric fracture of right femur, [facility] 2025-04-21 18:55 Displaced intertroch anteric fracture of right femur, [facility] 2025-04-21 18:57 Displaced intertroch anteric fracture of right femur, [facility] 2025-04-23 02:20 Displaced intertroch anteric fracture of right femur, initial [facility] 2025-04-23 06:00 Displaced intertroch anteric fracture of right femur, initial [facility] 2025-04-23 06:01 Displaced intertroch anteric fracture of right femur, initial [facility] 2025-04-23 08:41 Displaced intertroch anteric fracture of right femur, initial [facility] 2025-04-23 12:01 Displaced intertroch anteric fracture of right femur, initial [facility] 2025-04-25 09:25 Unspecified injury of left renny pool, initial encounter [facility] 2025-04-25 09:35 Displaced intertroch anteric fracture of right femur, initial [facility] 2025-04-25 14:14 Displaced intertroch anteric fracture of right femur, initial [facility] Procedures date description facility 2025-04-20 00:00 reposition left uppe r femur with intramedullary internal fixation device, open approach [facility] 2025-04-20 00:00 XR femur left, 2 views [facility] 2025-04-23 00:00 X-ray of chest, single view [facility] 2025-04-21 00:00 XR fluoro, less than 60 minutes [facility] 2025-04-20 00:00 Unilateral x-ray of hip, two views, with x-ray of pelvis [facility] 2025-04-21 00:00 Unilateral x-ray of hip, two views, with x-ray of pelvis [facility] Results/Labs test date facility value unit notes Result panel 1 Specimen collection (procedure) (no date) [facility] (missing) (missing) (missing) Result panel 2 Specimen collection (procedure) (no date) [facility] (missing) (missing) (missing) Result panel 3 Specimen collection (procedure) (no date) [facility] (missing) (missing) (missing) Result panel 4 Specimen collection (procedure) (no date) [facility] (missing) (missing) (missing) Result panel 5 Specimen collection (procedure) (no date) [facility] (missing) (missing) (missing) Result panel 6 Specimen collection (procedure) (no date) [facility] (missing) (missing) (missing) Result panel 7 Specimen collection (procedure) (no date) [facility] (missing) (missing) (missing) Result panel 8 Specimen collection (procedure) (no date) [facility] (missing) (missing) (missing) Result panel 9 Specimen collection (procedure) (no date) [facility] (missing) (missing) (missing) Result panel 10 Specimen collection (procedure) (no date) [facility] (missing) (missing) (missing) Result panel 11 Specimen collection (procedure) (no date) [facility] (missing) (missing) (missing) Result panel 12 Specimen collection (procedure) (no date) [facility] (missing) (missing) (missing) Result panel 13 Specimen collection (procedure) (no date) [facility] (missing) (missing) (missing) Result panel 14 Specimen collection (procedure) (no date) [facility] (missing) (missing) (missing) Result panel 15 Specimen collection (procedure) (no date) [facility] (missing) (missing) (missing) Result panel 16 Specimen collection (procedure) (no date) [facility] (missing) (missing) (missing) Result panel 17 Specimen collection (procedure) (no date) [facility] (missing) (missing) (missing) Result panel 18 Specimen collection (procedure) (no date) [facility] (missing) (missing) (missing) Result panel 19 Specimen collection (procedure) (no date) [facility] (missing) (missing) (missing) Result panel 20 Specimen collection (procedure) (no date) [facility] (missing) (missing) (missing) Result panel 21 Specimen collection (procedure) (no date) [facility] (missing) (missing) (missing) Result panel 22 Specimen collection (procedure) (no date) [facility] (missing) (missing) (missing) Result panel 23 Specimen collection (procedure) (no date) [facility] (missing) (missing) (missing) Result panel 24 Specimen collection (procedure) (no date) [facility] (missing) (missing) (missing) Result panel 25 Specimen collection (procedure) (no date) [facility] (missing) (missing) (missing) Result panel 26 Specimen collection (procedure) (no date) [facility] (missing) (missing) (missing) Result panel 27 Specimen collection (procedure) (no date) [facility] (missing) (missing) (missing) Result panel 28 Specimen collection (procedure) (no date) [facility] (missing) (missing) (missing) Result panel 29 Specimen collection (procedure) (no date) [facility] (missing) (missing) (missing) Result panel 30 Specimen collection (procedure) (no date) [facility] (missing) (missing) (missing) Result panel 31 Specimen collection (procedure) (no date) [facility] (missing) (missing) (missing) Result panel 32 Specimen collection (procedure) (no date) [facility] (missing) (missing) (missing) Result panel 33 Specimen collection (procedure) (no date) [facility] (missing) (missing) (missing) Result panel 34 Specimen collection (procedure) (no date) [facility] (missing) (missing) (missing) Result panel 35 Specimen collection (procedure) (no date) [facility] (missing) (missing) (missing) Result panel 36 Specimen collection (procedure) (no date) [facility] (missing) (missing) (missing) Result panel 37 Specimen collection (procedure) (no date) [facility] (missing) (missing) (missing) Result panel 38 Specimen collection (procedure) (no date) [facility] (missing) (missing) (missing) Result panel 39 Specimen collection (procedure) (no date) [facility] (missing) (missing) (missing) Result panel 40 Specimen collection (procedure) (no date) [facility] (missing) (missing) (missing) Result panel 41 Specimen collection (procedure) (no date) [facility] (missing) (missing) (missing) Result panel 42 Specimen collection (procedure) (no date) [facility] (missing) (missing) (missing) Result panel 43 Specimen collection (procedure) (no date) [facility] (missing) (missing) (missing) Result panel 44 Specimen collection (procedure) (no date) [facility] (missing) (missing) (missing) Result panel 45 Specimen collection (procedure) (no date) [facility] (missing) (missing) (missing) Result panel 46 Specimen collection (procedure) (no date) [facility] (missing) (missing) (missing) Result panel 47 Specimen collection (procedure) (no date) [facility] (missing) (missing) (missing) Result panel 48 Specimen collection (procedure) (no date) [facility] (missing) (missing) (missing) Result panel 49 Specimen collection (procedure) (no date) [facility] (missing) (missing) (missing) Result panel 50 Specimen collection (procedure) (no date) [facility] (missing) (missing) (missing) Result panel 51 Specimen collection (procedure) (no date) [facility] (missing) (missing) (missing) Result panel 52 Specimen collection (procedure) (no date) [facility] (missing) (missing) (missing) Result panel 53 Specimen collection (procedure) (no date) [facility] (missing) (missing) (missing) Result panel 54 Specimen collection (procedure) (no date) [facility] (missing) (missing) (missing) Result panel 55 Specimen collection (procedure) (no date) [facility] (missing) (missing) (missing) Result panel 56 Specimen collection (procedure) (no date) [facility] (missing) (missing) (missing) Result panel 57 Specimen collection (procedure) (no date) [facility] (missing) (missing) (missing) Result panel 58 Specimen collection (procedure) (no date) [facility] (missing) (missing) (missing) Result panel 59 Specimen collection (procedure) (no date) [facility] (missing) (missing) (missing) Result panel 60 Specimen collection (procedure) (no date) [facility] (missing) (missing) (missing) Result panel 61 Specimen collection (procedure) (no date) [facility] (missing) (missing) (missing) Result panel 62 Specimen collection (procedure) (no date) [facility] (missing) (missing) (missing) Result panel 63 Specimen collection (procedure) (no date) [facility] (missing) (missing) (missing) Result panel 64 Specimen collection (procedure) (no date) [facility] (missing) (missing) (missing) Result panel 65 Specimen collection (procedure) (no date) [facility] (missing) (missing) (missing) Result panel 66 Specimen collection (procedure) (no date) [facility] (missing) (missing) (missing) Result panel 67 Specimen collection (procedure) (no date) [facility] (missing) (missing) (missing) Result panel 68 Specimen collection (procedure) (no date) [facility] (missing) (missing) (missing) Result panel 69 Specimen collection (procedure) (no date) [facility] (missing) (missing) (missing) Result panel 70 Specimen collection (procedure) (no date) [facility] (missing) (missing) (missing) Result panel 71 Specimen collection (procedure) (no date) [facility] (missing) (missing) (missing) Result panel 72 Specimen collection (procedure) (no date) [facility] (missing) (missing) (missing) Result panel 73 Specimen collection (procedure) (no date) [facility] (missing) (missing) (missing) Result panel 74 Specimen collection (procedure) (no date) [facility] (missing) (missing) (missing) Result panel 75 Specimen collection (procedure) (no date) [facility] (missing) (missing) (missing) Result panel 76 Specimen collection (procedure) (no date) [facility] (missing) (missing) (missing) Result panel 77 Specimen collection (procedure) (no date) [facility] (missing) (missing) (missing) Result panel 78 Specimen collection (procedure) (no date) [facility] (missing) (missing) (missing) Result panel 79 Specimen collection (procedure) (no date) [facility] (missing) (missing) (missing) Result panel 80 Specimen collection (procedure) (no date) [facility] (missing) (missing) (missing) Result panel 81 Specimen collection (procedure) (no date) [facility] (missing) (missing) (missing) Result panel 82 Specimen collection (procedure) (no date) [facility] (missing) (missing) (missing) Result panel 83 Specimen collection (procedure) (no date) [facility] (missing) (missing) (missing) Result panel 84 White blood cell count 2025-04-20 14:54:07 [facility] 1 2.1 X10^3/uL (missing) Result panel 85 Red blood cell count 2025-04-20 14:54:07 [facility] 4.5 5 X10^6/uL (missing) Result panel 86 Hemoglobin 2025-04-20 14:54:07 [facility] 12.8 g/d L (missing) Result panel 87 Hematocrit 2025-04-20 14:54:07 [facility] 39.1 % (missing) Result panel 88 MCV (mean corpuscular volume ) determination 2025-04-20 14:54:07 [facility] 85.9 fL (mis sing) Result panel 89 Mean corpuscular hemoglobin (MCH) determination 2025-04-20 14:54:07 [facility] 28.1 PG (missing) Result panel 90 Mean corpuscular hemoglobin concentration (MCHC) determination 2025-04-20 14:54:07 [facility] 32.7 % (mis sing) Result panel 91 Red cell distribution width determination 2025-04-20 14:54:07 [facility] 14.3 % (mis sing) Result panel 92 Platelet count 2025-04-20 14:54:07 [facility] 178 X10^3/uL (missing) Result panel 93 Automated neutrophil % 2025-04-20 14:54:07 [facility] 8 1.1 % (missing) Result panel 94 Automated lymphocyte % 2025-04-20 14:54:07 [facility] 8 .5 % (missing) Result panel 95 Automated monocyte % 2025-04-20 14:54:07 [facility] 6.1 % (missing) Result panel 96 Automated eosinophil % 2025-04-20 14:54:07 [facility] 3 .5 % (missing) Result panel 97 Automated basophil % 2025-04-20 14:54:07 [facility] 0.8 % (missing) Result panel 98 Absolute neutrophil count 2025-04-20 14:54:07 [facility] 9800 /uL (missing) Result panel 99 [facility]-20 [facility] Result panel 100 Automated blood monocyte count 2025-04-20 14:54:07 [facility] 700 /uL (missing) Result panel 101 Automated eosinophil count 2025-04-20 14:54:07 [facility] 400 /uL (missing) Result panel 102 Automated basophil count 2025-04-20 14:54:07 [facility] 100 /uL (missing) Result panel 103 Sodium [Moles/volume] in Serum or Plasma 2025-04-20 14:54:07 [facility] 136 mmol/L ([facility]) Result panel 104 Potassium [Moles/volume] in Serum or Plasma 2025-04-20 14:54:07 [facility] 4.5 mmol/L ([facility]) Result panel 105 Chloride [Moles/volume] in Serum or Plasma 2025-04-20 14:54:07 [facility] 102 mmol/L ([facility]) Result panel 106 Carbon dioxide, total [Moles/volume] in Serum or Plasma 2025-04-20 14:54:07 [facility] 27 mmol/L ([facility]) Result panel 107 Urea nitrogen [Mass/volume] in Serum or Plasma 2025-04-20 14:54:07 [facility] 21 mg/dL ([facility]) Result panel 108 Creatinine [Mass/volume] in Serum or Plasma 2025-04-20 14:54:07 [facility] 0.85 mg/dL (m issing) Result panel 109 Glomerular filtration rate (GFR) estimation 2025-04-20 14:54:07 [facility] > 60 mL/min (missing) (missing) Result panel 110 BUN/creatinine ratio 2025-04-20 14:54:07 [facility] 24. 7 (missing) (missing) Result panel 111 Glucose [Mass/volume] in Serum or Plasma 2025-04-20 14:54:07 [facility] 124 mg/dL ([facility]) Result panel 112 Calcium [Mass/volume] in Serum or Plasma 2025-04-20 14:54:07 [facility] 8.9 mg/dL ([facility]) Result panel 113 Bilirubin.total [Mass/volume ] in Serum or Plasma 2025-04-20 14:54:07 [facility] 0.5 mg/dL (missing) Result panel 114 Aspartate aminotransferase [Enzymatic activity/volume] in Serum or Plasma 2025-04-20 14:54:07 [facility] 36 IU/L ([facility]) Result panel 115 Alanine aminotransferase [Enzymatic activity/volume] in Serum or Plasma 2025-04-20 14:54:07 [facility] 23 IU/L ([facility]) Result panel 116 Alkaline phosphatase [Enzyma tic activity/volume] in Serum or Plasma 2025-04-20 14:54:07 [facility] 70 U/L (miss ing) Result panel 117 Protein total ser/plas 2025-04-20 14:54:07 [facility] 7 .0 g/dL (missing) Result panel 118 Albumin [Mass/volume] in Ser um or Plasma 2025-04-20 14:54:07 [facility] 4.1 g/dL (miss ing) Result panel 119 Globulin [Mass/volume] in Serum by calculation 2025-04-20 14:54:07 [facility] 2.9 g/dL (missing) Result panel 120 Albumin/Globulin [Mass Ratio] in Serum or Plasma 2025-04-20 14:54:07 [facility] 1.4 (miss ing) (missing) Result panel 121 X-ray report 2025-04-20 15:46 [facility] (missing) (mis sing) (missing) Result panel 122 X-ray report 2025-04-20 15:46 [facility] (missing) (mis sing) (missing) Result panel 123 Basophils Percent Auto 2025-04-20 16:06 [facility] 0.8 % (missing) Basophils Absolute Auto 2025-04-20 16:[address] [place] [address] 100 /ul (missing) Lymphocytes Absolute Auto 2025-04-20 :[address] [place] [address] 1 000 /ul (missing) White Blood Cell Count 2025-04-20 :[address] [place] [address] 12.1 x10 3/ul (missing) Hemoglobin 2025-04-20 :[address] [place] [address] 12.8 g/dl (missing) Red Cell Distribution Width 2025-04-20 :[address] [place] [address] 14.3 % (missing) Platelet Count 2025-04-20 :[address] [place] [address] 178 x1 0 3/ul (missing) Mean Corpuscular Hemoglobin 2025-04-20 :[address] [place] [address] 28.1 pg (missing) Eosinophils Percent Auto 2025-04-[address] [place] [address] 3. 5 % (missing) Mean Corpuscular HGB Conc 2025-04-[address] [place] [address] 3 2.7 % (missing) Hematocrit 2025-04-[address] [place] [address] 39.1 % (missing) Red Blood Cell Count 2025-04-[address] [place] [address] 4.55 x10 6/ul (missing) Eosinophils Absolute Auto 2025-04-20 :[address] [place] [address] 4 00 /ul (missing) Monocytes Percent Auto 2025-04-[address] [place] [address] 6.1 % (missing) Monocytes Absolute Auto 2025-04-[address] [place] [address] 700 /ul (missing) Lymphocytes Percent Auto 2025-04-[address] [place] [address] 8. 5 % (missing) Neutrophils Percent Auto 2025-04-[address] [place] [address] 81 .1 % (missing) Mean Corpuscular Volume 2025-04-[address] [place] [address] 85. 9 fl (missing) Neutrophils Absolute Auto 2025-04-20 :[address] [place] [address] 9 800 /ul (missing) Result panel 124 X-ray report 2025-04-20 :[address] [place] [address] (missing) (mis sing) (missing) Result panel 125 X-ray report 2025-04-20 16:[address] [place] [address] (missing) (mis sing) (missing) Result panel 126 Estimated Glomerular Filt Rate 2025-04-20 :[address] [place] [address] > 60 ml/min Reported eGFR is based the CKD-EPI 2020 equation that does not use a race coefficient. An eGFR below 60 mL/min/1.73m2 suggests that some kidney damage has occurred, and indicative of chronic kidney disease if persisting greater than 3 months. An eGFR less than 15 is indicative of kidney failure. Bilirubin Total 2025-04-20 16:12 [facility] 0.5 mg/dl (missing) Creatinine 2025-04-20 16:12 [facility] 0.85 mg/dl (missing) Albumin Globulin Ratio 2025-04-20 16:12 [facility] 1.4 (missing) (missing) Chloride 2025-04-20 16:12 [facility] 102 mmol/l (missing) Glucose 2025-04-20 16:12 [facility] 124 mg/dl (missing) Sodium 2025-04-20 16:12 [facility] 136 mmol/l (missing) Globulin 2025-04-20 16:12 [facility] 2.9 g/dl (missing) Blood Urea Nitrogen 2025-04-20 16:12 [facility] 21 mg/dl (missing) Alanine Aminotransferase 2025-04-20 16:12 [facility] 23 iu/l (missing) BUN Creatinine Ratio 2025-04-20 16:12 [facility] 24.7 (missing) (missing) Carbon Dioxide 2025-04-20 16:12 [facility] 27 mmol/l (missing) Aspartate Aminotransferase 2025-04-20 16:12 [facility] 36 iu/l (missing) Albumin 2025-04-20 16:12 [facility] 4.1 g/dl (missing) Potassium 2025-04-20 16:12 [facility] 4.5 mmol/l (missing) Total Protein 2025-04-20 16:12 [facility] 7.0 g/dl (missing) Alkaline Phosphatase 2025-04-20 16:12 [facility] 70 u/l (missing) Calcium 2025-04-20 16:12 [facility] 8.9 mg/dl (missing) Result panel 127 X-ray report 2025-04-20 18:15 [facility] (missing) (mis sing) (missing) Result panel 128 Emergency department note 2025-04-20 23:28 [facility] (missing) (missing) (missing ) Result panel 129 Basophils Percent Auto 2025-04-21 06:55 [facility] 0.7 % (missing) Hemoglobin 2025-04-21 06:55 [facility] 10.6 g/dl (missing) Basophils Absolute Auto 2025-04-21 06:55 [facility] 100 /ul (missing) Lymphocytes Absolute Auto 2025-04-21 06:[address] [place] [address] 1 100 /ul (missing) Platelet Count 2025-04-21 06:[address] [place] [address] 138 x1 0 3/ul (missing) Lymphocytes Percent Auto 2025-04-21 06:[address] [place] [address] 14 .3 % (missing) Red Cell Distribution Width 2025-04-21 06:[address] [place] [address] 14.4 % (missing) Mean Corpuscular Hemoglobin 2025-04-21 06:[address] [place] [address] 28.7 pg (missing) Red Blood Cell Count 2025-04-21 06:[address] [place] [address] 3.70 x10 6/ul (missing) Eosinophils Percent Auto 2025-04-21 06:[address] [place] [address] 3. 8 % (missing) Eosinophils Absolute Auto 2025-04-21 06:[address] [place] [address] 3 00 /ul (missing) Hematocrit 2025-04-21 06:[address] [place] [address] 31.5 % (missing) Mean Corpuscular HGB Conc 2025-04-21 06:[address] [place] [address] 3 3.7 % (missing) Neutrophils Absolute Auto 2025-04-21 06:[address] [place] [address] 5 700 /ul (missing) Monocytes Absolute Auto 2025-04-21 06:[address] [place] [address] 700 /ul (missing) Neutrophils Percent Auto 2025-04-21 06:[address] [place] [address] 71 .9 % (missing) White Blood Cell Count 2025-04-21 06:[address] [place] [address] 8.0 x10 3/ul (missing) Mean Corpuscular Volume 2025-04-21 06:[address] [place] [address] 85. 3 fl (missing) Monocytes Percent Auto 2025-04-21 06:[address] [place] [address] 9.3 % (missing) Result panel 130 Estimated Glomerular Filt Rate 2025-04-21 07:26 [facility] > 60 ml/min Reported eGFR is based the CKD-EPI 2020 equation that does not use a race coefficient. An eGFR below 60 mL/min/1.73m2 suggests that some kidney damage has occurred, and indicative of chronic kidney disease if persisting greater than 3 months. An eGFR less than 15 is indicative of kidney failure. Bilirubin Total 2025-04-21 07:26 [facility] 0.6 mg/dl (missing) Creatinine 2025-04-21 07:26 [facility] 0.88 mg/dl (missing) Albumin Globulin Ratio 2025-04-21 07: [facility] 1.3 (missing) (missing) Chloride 2025-04-21 07:26 [facility] 103 mmol/l (missing) Glucose 2025-04-21 07: [facility] 117 mg/dl (missing) Sodium 2025-04-21 07: [facility] 134 mmol/l (missing) Alanine Aminotransferase 2025-04-21 07: [facility] 16 iu/l (missing) Blood Urea Nitrogen 2025-04-21 07: [facility] 19 mg/dl (missing) Globulin 2025-04-21 07: [facility] 2.6 g/dl (missing) BUN Creatinine Ratio 2025-04-21 07: [facility] 21.6 (missing) (missing) Aspartate Aminotransferase 2025-04-21 07:[address] [place] [address] 26 iu/l (missing) Carbon Dioxide 2025-04-21 07:[address] [place] [address] 26 mmol/l (missing) Albumin 2025-04-21 07: [facility] 3.4 g/dl (missing) Potassium 2025-04-21 07: [facility] 4.5 mmol/l (missing) Total Protein 2025-04-21 07:[address] [place] [address] 6.0 g/dl (missing) Alkaline Phosphatase 2025-04-21 07: [facility] 60 u/l (missing) Calcium 2025-04-21 07: [facility] 8.3 mg/dl (missing) Result panel 131 X-ray report 2025-04-21 20:59 [facility] (missing) (mis sing) (missing) Result panel 132 X-ray report 2025-04-21 21:38 [facility] (missing) (mis sing) (missing) Result panel 133 Basophils Percent Auto 2025-04-22 05:27 [facility] 0.5 % (missing) Basophils Absolute Auto 2025-04-22 05:27 [facility] 100 /ul (missing) Platelet Count 2025-04-22 05: [facility] 104 x1 0 3/ul (missing) Lymphocytes Percent Auto 2025-04-22 05: [facility] 13 .2 % (missing) Lymphocytes Absolute Auto 2025-04-22 05:[address] [place] [address] 1 300 /ul (missing) Red Cell Distribution Width 2025-04-22 05:27 [facility] 14.3 % (missing) Red Blood Cell Count 2025-04-22 05:[address] [place] [address] 2.86 x10 6/ul (missing) Hematocrit 2025-04-22 05:[address] [place] [address] 24.6 % (missing) Mean Corpuscular Hemoglobin 2025-04-22 05:[address] [place] [address] 28.7 pg (missing) Mean Corpuscular HGB Conc 2025-04-22 05:[address] [place] [address] 3 3.4 % (missing) Eosinophils Percent Auto 2025-04-22 05:[address] [place] [address] 7. 1 % (missing) Monocytes Percent Auto 2025-04-22 05:[address] [place] [address] 7.5 % (missing) Eosinophils Absolute Auto 2025-04-22 05:[address] [place] [address] 7 00 /ul (missing) Monocytes Absolute Auto 2025-04-22 05:[address] [place] [address] 700 /ul (missing) Neutrophils Percent Auto 2025-04-22 05:[address] [place] [address] 71 .7 % (missing) Neutrophils Absolute Auto 2025-04-22 05:[address] [place] [address] 7 100 /ul (missing) Hemoglobin 2025-04-22 05:[address] [place] [address] 8.2 g/dl (missing) Mean Corpuscular Volume 2025-04-22 05:[address] [place] [address] 85. 9 fl (missing) White Blood Cell Count 2025-04-22 05:[address] [place] [address] 9.9 x10 3/ul (missing) Result panel 134 Bilirubin Total 2025-04-22 05:[address] [place] [address] 0.2 mg/dl (missing) Creatinine 2025-04-22 05:[address] [place] [address] 1.09 mg/dl (missing) Albumin Globulin Ratio 2025-04-22 05:[address] [place] [address] 1.2 (missing) (missing) Chloride 2025-04-22 05:[address] [place] [address] 100 mmol/l (missing) Sodium 2025-04-22 05:[address] [place] [address] 129 mmol/l (missing) Alanine Aminotransferase 2025-04-22 05:[address] [place] [address] 13 iu/l (missing) Glucose 2025-04-22 05:[address] [place] [address] 140 mg/dl (missing) Globulin 2025-04-22 05:[address] [place] [address] 2.3 g/dl (missing) Albumin 2025-04-22 05:[address] [place] [address] 2.8 g/dl (missing) BUN Creatinine Ratio 2025-04-22 05:[address] [place] [address] 22.9 (missing) (missing) Blood Urea Nitrogen 2025-04-22 05:[address] [place] [address] 25 mg/dl (missing) Carbon Dioxide 2025-04-22 05:[address] [place] [address] 26 mmol/l (missing) Aspartate Aminotransferase 2025-04-22 05:[address] [place] [address] 27 iu/l (missing) Potassium 2025-04-22 05:[address] [place] [address] 4.4 mmol/l (missing) Estimated Glomerular Filt Rate 2025-04-22 05:[address] [place] [address] 49 ml/min Reported eGFR is based the CKD-EPI 2020 equation that does not use a race coefficient. An eGFR below 60 mL/min/1.73m2 suggests that some kidney damage has occurred, and indicative of chronic kidney disease if persisting greater than 3 months. An eGFR less than 15 is indicative of kidney failure. Total Protein 2025-04-22 05:[address] [place] [address] 5.1 g/dl (missing) Alkaline Phosphatase 2025-04-22 05:[address] [place] [address] 53 u/l (missing) Calcium 2025-04-22 05:[address] [place] [address] 7.9 mg/dl (missing) Result panel 135 Basophils Percent Auto 2025-04-23 05:[address] [place] [address] 0.8 % (missing) Eosinophils Percent Auto 2025-04-23 05:[address] [place] [address] 10 .0 % (missing) Basophils Absolute Auto 2025-04-23 05:[address] [place] [address] 100 /ul (missing) Lymphocytes Absolute Auto 2025-04-23 05:[address] [place] [address] 1 000 /ul (missing) Lymphocytes Percent Auto 2025-04-23 05:[address] [place] [address] 11 .8 % (missing) Red Cell Distribution Width 2025-04-23 05:[address] [place] [address] 14.3 % (missing) Red Blood Cell Count 2025-04-23 05:[address] [place] [address] 2.45 x10 6/ul (missing) Hematocrit 2025-04-23 05:[address] [place] [address] 21.0 % (missing) Mean Corpuscular Hemoglobin 2025-04-23 05:[address] [place] [address] 28.8 pg (missing) Mean Corpuscular HGB Conc 2025-04-23 05:[address] [place] [address] 3 3.6 % (missing) Neutrophils Absolute Auto 2025-04-23 05:[address] [place] [address] 6 000 /ul (missing) Neutrophils Percent Auto 2025-04-23 05:[address] [place] [address] 69 .3 % (missing) Hemoglobin 2025-04-23 05:58 [facility] 7.1 g/dl (missing) Monocytes Absolute Auto 2025-04-23 05:58 [facility] 700 /ul (missing) Monocytes Percent Auto 2025-04-23 05:58 [facility] 8.1 % (missing) White Blood Cell Count 2025-04-23 05:58 [facility] 8.6 x10 3/ul (missing) Mean Corpuscular Volume 2025-04-23 05:58 [facility] 85. 7 fl (missing) Eosinophils Absolute Auto 2025-04-23 05:58 [facility] 9 00 /ul (missing) Platelet Count 2025-04-23 05:58 [facility] 98 x1 0 3/ul (missing) Result panel 136 Estimated Glomerular Filt Rate 2025-04-23 06:11 [facility] > 60 ml/min Reported eGFR is based the CKD-EPI 2020 equation that does not use a race coefficient. An eGFR below 60 mL/min/1.73m2 suggests that some kidney damage has occurred, and indicative of chronic kidney disease if persisting greater than 3 months. An eGFR less than 15 is indicative of kidney failure. Bilirubin Total 2025-04-23 06:11 [facility] 0.3 mg/dl (missing) Creatinine 2025-04-23 06:11 [facility] 0.81 mg/dl (missing) Albumin Globulin Ratio 2025-04-23 06:11 [facility] 1.1 (missing) (missing) Chloride 2025-04-23 06:11 [facility] 101 mmol/l (missing) Glucose 2025-04-23 06:11 [facility] 105 mg/dl (missing) Alanine Aminotransferase 2025-04-23 06:11 [facility] 12 iu/l (missing) Sodium 2025-04-23 06:11 [facility] 129 mmol/l (missing) Blood Urea Nitrogen 2025-04-23 06:11 [facility] 16 mg/dl (missing) BUN Creatinine Ratio 2025-04-23 06:11 [facility] 19.8 (missing) (missing) Globulin 2025-04-23 06:11 [facility] 2.1 g/dl (missing) Albumin 2025-04-23 06:11 [facility] 2.4 g/dl (missing) Aspartate Aminotransferase 2025-04-23 06:11 [facility] 27 iu/l (missing) Carbon Dioxide 2025-04-23 06:11 [facility] 27 mmol/l (missing) Total Protein 2025-04-23 06:11 [facility] 4.5 g/dl (missing) Alkaline Phosphatase 2025-04-23 06:11 [facility] 48 u/l (missing) Potassium 2025-04-23 06:11 [facility] 5.0 mmol/l (missing) Calcium 2025-04-23 06:11 [facility] 7.7 mg/dl (missing) Result panel 137 Blood Type 2025-04-23 12:07 [facility] A Positive (missing) Results at Enter/Edit Result s as of 04/23/25 1041 ... Test View Group: Most Recent HGB & HCT Results LABORATORY Date Time Test Result Flag Normal Range 04/23/25 0543 HGB 7.1 L 12.0-16.0 g/dL 04/23/25 0543 HCT 21.0 L 36-46 % Results at Enter/Edit Results as of 04/23/25 1139 ... Test View Group: Most Recent HGB & HCT Results LABORATORY Date Time Test Result Flag Normal Range 04/23/25 0543 HGB 7.1 L 12.0-16.0 g/dL 04/23/25 0543 HCT 21.0 L 36-46 % Antibo dy Screen 2025-04-23 12:07 [facility] NEGATIVE (missing) (missing) Packed Cells 2025-04-23 12:07 [facility] TRANSFUSE D PRODUCT: Packed Cells COUNT: 1 (missing) (missing) Result panel 138 Blood Type 2025-04-23 13:33 [facility] A Positive (missing) Results at Enter/Edit Result s as of 04/23/25 1041 ... Test View Group: Most Recent HGB & HCT Results LABORATORY Date Time Test Result Flag Normal Range 04/23/2543 HGB 7.1 L 12.0-16.0 g/dL 04/23/25 0543 HCT 21.0 L 36-46 % Results at Enter/Edit Results as of 04/23/25 1139 ... Test View Group: Most Recent HGB & HCT Results LABORATORY Date Time Test Result Flag Normal Range 04/23/2543 HGB 7.1 L 12.0-16.0 g/dL 04/23/2543 HCT 21.0 L 36-46 % Antibo dy Screen 2025-04-23 13:33 [facility] NEGATIVE (missing) (missing) Result panel 139 Packed Cells 2025-04-23 13:34 [facility] TRANSFUS ED PRODUCT: Packed Cells COUNT: 1 (missing) (missing) Result panel 140 Blood Type 2025-04-23 15:22 [facility] A Positive (missing) Results at Enter/Edit Result s as of 04/23/25 1041 ... Test View Group: Most Recent HGB & HCT Results LABORATORY Date Time Test Result Flag Normal Range 04/23/2543 HGB 7.1 L 12.0-16.0 g/dL 04/23/25 0543 HCT 21.0 L 36-46 % Results at Enter/Edit Results as of 04/23/25 1139 ... Test View Group: Most Recent HGB & HCT Results LABORATORY Date Time Test Result Flag Normal Range 04/23/25 0543 HGB 7.1 L 12.0-16.0 g/dL 04/23/25 0543 HCT 21.0 L 36-46 % Antibo dy Screen 2025-04-23 15:22 [facility] NEGATIVE (missing) (missing) Result panel 141 Blood Type 2025-04-23 15:23 [facility] A Positive (missing) Results at Enter/Edit Result s as of 04/23/25 1041 ... Test View Group: Most Recent HGB & HCT Results LABORATORY Date Time Test Result Flag Normal Range 04/23/25 0543 HGB 7.1 L 12.0-16.0 g/dL 04/23/25 0543 HCT 21.0 L 36-46 % Results at Enter/Edit Results as of 04/23/25 1139 ... Test View Group: Most Recent HGB & HCT Results LABORATORY Date Time Test Result Flag Normal Range 04/23/25 0543 HGB 7.1 L 12.0-16.0 g/dL 04/23/25 0543 HCT 21.0 L 36-46 % Antibo dy Screen 2025-04-23 15:23 [facility] NEGATIVE (missing) (missing) Packed Cells 2025-04-23 15:23 [facility] TRANSFUSE D PRODUCT: Packed Cells COUNT: 1 (missing) (missing) Result panel 142 X-ray report 2025-04-23 19:57 [facility] (missing) (mis sing) (missing) Result panel 143 Albumin/Globulin [Mass Ratio] in Serum or Plasma 2025-04-24 04:15:07 [facility] 1.2 (miss ing) (missing) Result panel 144 Bilirubin.total [Mass/volume ] in Serum or Plasma 2025-04-24 04:15:07 [facility] 0.8 mg/dL (missing) Result panel 145 Aspartate aminotransferase [Enzymatic activity/volume] in Serum or Plasma 2025-04-24 04:15:07 [facility] 26 IU/L ([facility]) Result panel 146 Alanine aminotransferase [Enzymatic activity/volume] in Serum or Plasma 2025-04-24 04:15:07 [facility] 12 IU/L ([facility]) Result panel 147 Alkaline phosphatase [Enzyma tic activity/volume] in Serum or Plasma 2025-04-24 04:15:07 [facility] 58 U/L ([facility]) Result panel 148 Protein total ser/plas 2025-04-24 04:15:07 [facility] 4 .8 g/dL (missing) Result panel 149 Albumin [Mass/volume] in Ser um or Plasma 2025-04-24 04:15:07 [facility] 2.6 g/dL ([facility]) Result panel 150 Globulin [Mass/volume] in Serum by calculation 2025-04-24 04:15:07 [facility] 2.2 g/dL (missing) Result panel 151 Basophils Percent Auto 2025-04-24 04:44 [facility] 0.7 % (missing) Basophils Absolute Auto 2025-04-24 04:[address] [place] [address] 100 /ul (missing) Platelet Count 2025-04-24 04:[address] [place] [address] 128 x1 0 3/ul (missing) Red Cell Distribution Width 2025-04-24 04:44 [facility] 14.1 % (missing) Lymphocytes Absolute Auto 2025-04-24 04:44 [facility] 1 400 /ul (missing) Lymphocytes Percent Auto 2025-04-24 04:[address] [place] [address] 15 .7 % (missing) Hematocrit 2025-04-24 04:[address] [place] [address] 25.4 % (missing) Mean Corpuscular Hemoglobin 2025-04-24 04:[address] [place] [address] 29.1 pg (missing) Red Blood Cell Count 2025-04-24 04:[address] [place] [address] 3.00 x10 6/ul (missing) Mean Corpuscular HGB Conc 2025-04-24 04:44 [facility] 3 4.4 % (missing) Neutrophils Absolute Auto 2025-04-24 04:44 [facility] 5 700 /ul (missing) Neutrophils Percent Auto 2025-04-24 04:44 [facility] 65 .7 % (missing) Monocytes Absolute Auto 2025-04-24 04:44 [facility] 700 /ul (missing) Monocytes Percent Auto 2025-04-24 04:44 [facility] 8.6 % (missing) White Blood Cell Count 2025-04-24 04:44 [facility] 8.6 x10 3/ul (missing) Hemoglobin 2025-04-24 04:44 [facility] 8.7 g/dl (missing) Eosinophils Absolute Auto 2025-04-24 04:44 [facility] 8 00 /ul (missing) Mean Corpuscular Volume 2025-04-24 04:44 [facility] 84. 7 fl (missing) Eosinophils Percent Auto 2025-04-24 04:44 [facility] 9. 3 % (missing) Result panel 152 Estimated Glomerular Filt Rate 2025-04-24 04:51 [facility] > 60 ml/min Reported eGFR is based the CKD-EPI 2020 equation that does not use a race coefficient. An eGFR below 60 mL/min/1.73m2 suggests that some kidney damage has occurred, and indicative of chronic kidney disease if persisting greater than 3 months. An eGFR less than 15 is indicative of kidney failure. Bilirubin Total 2025-04-24 04:51 [facility] 0.8 mg/dl (missing) Creatinine 2025-04-24 04:51 [facility] 0.86 mg/dl (missing) Albumin Globulin Ratio 2025-04-24 04:51 [facility] 1.2 (missing) (missing) Glucose 2025-04-24 04:51 [facility] 111 mg/dl (missing) Alanine Aminotransferase 2025-04-24 04:51 [facility] 12 iu/l (missing) Sodium 2025-04-24 04:51 [facility] 129 mmol/l (missing) Blood Urea Nitrogen 2025-04-24 04:51 [facility] 15 mg/dl (missing) BUN Creatinine Ratio 2025-04-24 04:51 [facility] 17.4 (missing) (missing) Globulin 2025-04-24 04:51 [facility] 2.2 g/dl (missing) Albumin 2025-04-24 04:51 [facility] 2.6 g/dl (missing) Aspartate Aminotransferase 2025-04-24 04:51 [facility] 26 iu/l (missing) Carbon Dioxide 2025-04-24 04:51 [facility] 29 mmol/l (missing) Potassium 2025-04-24 04:51 [facility] 4.7 mmol/l (missing) Total Protein 2025-04-24 04:51 [facility] 4.8 g/dl (missing) Alkaline Phosphatase 2025-04-24 04:51 [facility] 58 u/l (missing) Calcium 2025-04-24 04:51 [facility] 8.3 mg/dl (missing) Chloride 2025-04-24 04:51 [facility] 99 mmol/l (missing) Result panel 153 Estimated Glomerular Filt Rate 2025-04-24 05:00 [facility] > 60 ml/min Reported eGFR is based the CKD-EPI 2020 equation that does not use a race coefficient. An eGFR below 60 mL/min/1.73m2 suggests that some kidney damage has occurred, and indicative of chronic kidney disease if persisting greater than 3 months. An eGFR less than 15 is indicative of kidney failure. Bilirubin Total 2025-04-24 05:00 [facility] 0.8 mg/dl (missing) Creatinine 2025-04-24 05:00 [facility] 0.86 mg/dl (missing) Albumin Globulin Ratio 2025-04-24 05:00 [facility] 1.2 (missing) (missing) Glucose 2025-04-24 05:00 [facility] 111 mg/dl (missing) Alanine Aminotransferase 2025-04-24 05:00 [facility] 12 iu/l (missing) Sodium 2025-04-24 05:00 [facility] 129 mmol/l (missing) Blood Urea Nitrogen 2025-04-24 05:00 [facility] 15 mg/dl (missing) BUN Creatinine Ratio 2025-04-24 05:00 [facility] 17.4 (missing) (missing) Globulin 2025-04-24 05:00 [facility] 2.2 g/dl (missing) Albumin 2025-04-24 05:00 [facility] 2.6 g/dl (missing) NT-proBNP (BNP-Adult 18+) 2025-04-24 05:00 [facility] 2430 pg/ml The following cut-points have been suggested for the use of proBNP for the diagnostic evaluation of heart failure (HF) in patients with acute dyspnea: Modality Age in Years Optimal Cut-Off -------- Heart Failure Unlikely: Exclusion Age Independent 300 pg/mL Heart Failure Likely: Diagnostic <50 450 pg/mL 50-75 900 pg/mL >75 1800 pg/mL The 300 pg/mL age-independent rule-out cutoff can be used to identify ED patients in whom HF (heart failuire) is unlikely and who need further investigations for non-cardiac causes of dyspnea. The natriuretic peptides values increase with age, therefore, applying age-dependent rule-in cutoffs (450, 900, and 1800 pg/mL) increases the specificity and positive predictive value for diagnosing patients in whom HF is likely. As mild natriuretic peptides elevations can be caused by non-HF conditions, VITROS NT-proBNP II test results between the exclusion and the diagnosis cutoffs should be considered in the context of the clinical presentation and physical examination in order to correctly identify or exclude HF. Aspartate Aminotransferase 2025-04-24 05:00 [facility] 26 iu/l (missing) Carbon Dioxide 2025-04-24 05:00 [facility] 29 mmol/l (missing) Potassium 2025-04-24 05:00 [facility] 4.7 mmol/l (missing) Total Protein 2025-04-24 05:00 [facility] 4.8 g/dl (missing) Alkaline Phosphatase 2025-04-24 05:00 [facility] 58 u/l (missing) Calcium 2025-04-24 05:00 [facility] 8.3 mg/dl (missing) Chloride 2025-04-24 05:00 [facility] 99 mmol/l (missing) Result panel 154 White blood cell count 2025-04-25 04:10:07 [facility] 8 .1 X10^3/uL (missing) Result panel 155 Red blood cell count 2025-04-25 04:10:07 [facility] 3.1 1 X10^6/uL (missing) Result panel 156 Hemoglobin 2025-04-25 04:10:07 [facility] 9.0 g/d L (missing) Result panel 157 Hematocrit 2025-04-25 04:10:07 [facility] 26.5 % (missing) Result panel 158 MCV (mean corpuscular volume ) determination 2025-04-25 04:10:07 [facility] 85.1 fL (mis sing) Result panel 159 Mean corpuscular hemoglobin (MCH) determination 2025-04-25 04:10:07 [facility] 28.9 PG (missing) Result panel 160 Mean corpuscular hemoglobin concentration (MCHC) determination 2025-04-25 04:10:07 [facility] 34.0 % (mis sing) Result panel 161 Red cell distribution width determination 2025-04-25 04:10:07 [facility] 13.9 % (mis sing) Result panel 162 Platelet count 2025-04-25 04:10:07 [facility] 170 X10^3/uL (missing) Result panel 163 Automated neutrophil % 2025-04-25 04:10:07 [facility] 6 2.6 % (missing) Result panel 164 Automated lymphocyte % 2025-04-25 04:10:07 [facility] 1 7.3 % (missing) Result panel 165 Automated monocyte % 2025-04-25 04:10:07 [facility] 8.3 % (missing) Result panel 166 Automated eosinophil % 2025-04-25 04:10:07 [facility] 1 1.0 % (missing) Result panel 167 Automated basophil % 2025-04-25 04:10:07 [facility] 0.8 % (missing) Result panel 168 Absolute neutrophil count 2025-04-25 04:10:07 [facility] l 5100 /uL (missing) Result panel 169 [facility] lymphocyte [facility] 2025-04-25 [facility]:10[facility] Result panel 170 Automated blood monocyte count 2025-04-25 04:10:07 [facility] 700 /uL (missing) Result panel 171 Automated eosinophil count 2025-04-25 [facility] Result panel 172 Automated basophil count 2025-04-25 04:10:07 [facility] 100 /uL (missing) Result panel 173 Natriuretic peptide.B prohormone N-Terminal [Mass/volume] in Serum or Plasma 2025-04-25 04:10:07 [facility] 1550 pg/mL (miss ing) Result panel 174 Sodium [Moles/volume] in Serum or Plasma 2025-04-25 04:10:07 [facility] 128 mmol/L (m issing) Result panel 175 Potassium [Moles/volume] in Serum or Plasma 2025-04-25 04:10:07 [facility] 3.9 mmol/L ( issing) Result panel 176 Chloride [Moles/volume] in Serum or Plasma 2025-04-25 04:10:07 [facility] 95 mmol/L ([facility]) Result panel 177 Carbon dioxide, total [Moles/volume] in Serum or Plasma 2025-04-25 04:10:07 [facility] 32 mmol/L ([facility]) Result panel 178 Urea nitrogen [Mass/volume] in Serum or Plasma 2025-04-25 04:10:07 [facility] 15 mg/dL ([facility]) Result panel 179 Creatinine [Mass/volume] in Serum or Plasma 2025-04-25 04:10:07 [facility] 0.87 mg/dL ([facility]) Result panel 180 Glomerular filtration rate (GFR) estimation 2025-04-25 04:10:07 [facility] > 60 mL/min (missing) (missing) Result panel 181 BUN/creatinine ratio 2025-04-25 04:10:07 [facility] 17. 2 (missing) (missing) Result panel 182 Glucose [Mass/volume] in Serum or Plasma 2025-04-25 04:10:07 [facility] 118 mg/dL ([facility]) Result panel 183 Calcium [Mass/volume] in Serum or Plasma 2025-04-25 04:10:07 [facility] 8.6 mg/dL ([facility]) Result panel 184 Basophils Percent Auto 2025-04-25 04:[address] [place] [address] 0.8 % (missing) Basophils Absolute Auto 2025-04-25 04:[address] [place] [address] 100 /ul (missing) Eosinophils Percent Auto 2025-04-25 04:[address] [place] [address] 11 .0 % (missing) Red Cell Distribution Width 2025-04-25 04:[address] [place] [address] 13.9 % (missing) Lymphocytes Absolute Auto 2025-04-25 04:[address] [place] [address] 1 400 /ul (missing) Lymphocytes Percent Auto 2025-04-25 04:[address] [place] [address] 17 .3 % (missing) Platelet Count 2025-04-25 04:[address] [place] [address] 170 x1 0 3/ul (missing) Hematocrit 2025-04-25 04:[address] [place] [address] 26.5 % (missing) Mean Corpuscular Hemoglobin 2025-04-25 04:[address] [place] [address] 28.9 pg (missing) Red Blood Cell Count 2025-04-25 04:[address] [place] [address] 3.11 x10 6/ul (missing) Mean Corpuscular HGB Conc 2025-04-25 04:38 [facility] 3 4.0 % (missing) Neutrophils Absolute Auto 2025-04-25 04:38 [facility] 5 100 /ul (missing) Neutrophils Percent Auto 2025-04-25 04:38 [facility] 62 .6 % (missing) Monocytes Absolute Auto 2025-04-25 04:38 [facility] 700 /ul (missing) White Blood Cell Count 2025-04-25 04:38 [facility] 8.1 x10 3/ul (missing) Monocytes Percent Auto 2025-04-25 04:38 [facility] 8.3 % (missing) Mean Corpuscular Volume 2025-04-25 04:38 [facility] 85. 1 fl (missing) Hemoglobin 2025-04-25 04:38 [facility] 9.0 g/dl (missing) Eosinophils Absolute Auto 2025-04-25 04:38 [facility] 9 00 /ul (missing) Result panel 185 Estimated Glomerular Filt Rate 2025-04-25 04:48 [facility] > 60 ml/min Reported eGFR is based the CKD-EPI 2020 equation that does not use a race coefficient. An eGFR below 60 mL/min/1.73m2 suggests that some kidney damage has occurred, and indicative of chronic kidney disease if persisting greater than 3 months. An eGFR less than 15 is indicative of kidney failure. Creatinine 2025-04-25 04:48 [facility] 0.87 mg/dl (missing) Glucose 2025-04-25 04:48 [facility] 118 mg/dl (missing) Sodium 2025-04-25 04:48 [facility] 128 mmol/l (missing) Blood Urea Nitrogen 2025-04-25 04:48 [facility] 15 mg/dl (missing ) BUN Creatinine Ratio 2025-04-25 04:48 [facility] 17.2 (missing) (missing ) Potassium 2025-04-25 04:48 [facility] 3.9 mmol/l (missing) Carbon Dioxide 2025-04-25 04:48 [facility] 32 mm ol/l (missing) Calcium 2025-04-25 04:48 [facility] 8.6 mg/dl (missing) Chloride 2025-04-25 04:48 [facility] 95 mmol/l (missing) Result panel 186 Estimated Glomerular Filt Rate 2025-04-25 04:57 [facility] > 60 ml/min Reported eGFR is based the CKD-EPI 2020 equation that does not use a race coefficient. An eGFR below 60 mL/min/1.73m2 suggests that some kidney damage has occurred, and indicative of chronic kidney disease if persisting greater than 3 months. An eGFR less than 15 is indicative of kidney failure. Creatinine 2025-04-25 04:57 [facility] 0.87 mg/dl (missing) Glucose 2025-04-25 04:57 [facility] 118 mg/dl (missing) Sodium 2025-04-25 04:57 [facility] [facility] 128 mmol/l (missing) Blood Urea Nitrogen 2025-04-25 04:[address] [place] [address] 15 mg/dl (missing ) NT-proBNP (BNP-Adult 18+) 2025-04-25:57 [facility] 1550 pg/ml The f teressalowing cut-points have been suggested for the use of proBNP for the diagnostic evaluation of heart failure (HF) in patients with acute dyspnea: Modality Age in Years Optimal Cut-Off -------- Heart Failure Unlikely: Exclusion Age Independent 300 pg/mL Heart Failure Likely: Diagnostic <50 450 pg/mL 50-75 900 pg/mL >75 1800 pg/mL The 300 pg/mL age-independent rule-out cutoff can be used to identify ED patients in whom HF (heart failuire) is unlikely and who need further investigations for non-cardiac causes of dyspnea. The natriuretic peptides values increase with age, therefore, applying age-dependent rule-in cutoffs (450, 900, and 1800 pg/mL) increases the specificity and positive predictive value for diagnosing patients in whom HF is likely. As mild natriuretic peptides elevations can be caused by non-HF conditions, VITROS NT-proBNP II test results between the exclusion and the diagnosis cutoffs should be considered in the context of the clinical presentation and physical examination in order to correctly identify or exclude HF. BUN Creatinine Ratio 2025-04-25 04:57 [facility] 17.2 (missing) (missing ) Potassium 2025-04-25 04:[address] [place] [address] 3.9 mmol/l (missing) Carbon Dioxide 2025-04-25 04:[address] [place] [address] 32 mm ol/l (missing) Calcium 2025-04-25 04:[address] [place] [address] 8.6 mg/dl (missing) Chloride 2025-04-25 04:57 [facility] 95 mmol/l (missing) Social History date description facility 2025-04-20 00:00 Ex-smoker (finding) [facility] Vital Signs date measurement value units 2025-04-20 00:00 BMI 19.1 kg/m2 2025-04-20 00:00 BP_diastolic 76 mmHg 2025-04-20 00:00 BP_systolic 138 mmHg 2025-04-20 00:00 heart_rate 68 /min 2025-04-20 00:00 height_metric 160.02 cm 2025-04-20 00:00 o2_saturation 98 % 2025-04-20 00:00 respiration_rate 16 /min 2025-04-20 00:00 temperature_standard 97.8 F 2025-04-20 00:00 weight_metric 48.98 kg 2025-04-20 00:00 weight_metric 50.50 kg 2025-04-25 00:00 BP_diastolic 46 mmHg 2025-04-25 00:00 BP_systolic 123 mmHg 2025-04-25 00:00 heart_rate 78 /min 2025-04-25 00:00 o2_saturation 94 % 2025-04-25 00:00 respiration_rate 20 /min 2025-04-25 00:00 temperature_standard 98.6 F
[2025-05-06 20:11] LABS: HCT - HEMATOCRIT 30.0 % (37.0-47.0); HGB - HEMOGLOBIN 10.0 g/dL (12.0-16.0); MEAN PLATELET VOLUME 9.2 fL (7.9-10.8); NRBC ABSOLUTE COUNT (AUTO) 0.00 x10^3/uL; NUCLEATED RED BLOOD CELLS AUTO 0.0 /100WBC; PLT - PLATELET COUNT 374 10^3/uL (130-450); RED CELL DISTRIBUTION WIDTH 14.4 % (12.0-15.0)
[2025-05-06 20:39] LABS: PLATELET ESTIMATE, MANUAL NORMAL (130-450,000) (NORMAL); PLATELET MORPHOLOGY NORMAL APPEARANCE (NORMAL); WBC MORPHOLOGY (MULTIPLE) 1+ HYPERSEG NEUT (NORMAL)
[2025-05-06] MEDS: SODIUM CHLORIDE 0.9% 1,000 ML IV STA (20:45)
[2025-05-06] MEDS: CEFEPIME 2 GM VIAL IVP STA (20:55)
[2025-05-06 21:05] LABS: GLUCOSE, URINE (UA) NEGATIVE (NEGATIVE); KETONES,URINE (UA) NEGATIVE (NEGATIVE); OCCULT BLOOD,URINE MODERATE (NEGATIVE)
[2025-05-06 21:06] LABS: SQUAMOUS EPITHELIAL CELL,UR RARE Squamous (<= Few); WBC CLUMPS,URINE PRESENT
--- NOTE | 2025-05-06 21:18 | HISTORY & PHYSICAL EXAMINATION ---
Chief Complaint Chief Complaint Chief Complaint: Confusion, fever History of Present Illness Admitted From Admitted From:: [facility] History of Present Illness HPI Comment/Other: 89-year-old female with history of COPD, hypertension, who had hip fracture with replacement about a week ago at [facility]. She was discharged to [facility] on [place], and family reports that her mentation has been varying ever since moving to [facility]. Family reports she is sleeping a lot and intermittently confused. They report that her face was extremely red today, and that she was febrile, so they requested patient be transferred to the ER. Before transfer, she had had a straight cath for urinary retention of 1200 mL liter. Facility reports that dipstick UA was positive for UTI. Patient denies chest pain, dyspnea, wheezing, bowel abnormality, but does report difficulty urinating and confusion In the ER, she was noted to have fever of 38.2 Celsius, heart rate 104. Lab work has thus far revealed a white blood cell count of 21.1. UA here had positive nitrites, large leukocyte esterase, moderate bacteria, greater than 25 WBC. She was given a liter of IVF and a dose of cefepime was ordered by ER provider and hospitalist was contacted for admission for sepsis secondary to UTI Meds/Allgy Home Medications Ambulatory Orders Medication Instructions Recorded Confirmed metoprolol succinate 25 mg 12.5 mg PO DAILY 07/17/20 1 tablet,extended release 24 hr aspirin 325 mg tablet 325 mg PO DAILYWM 07/21/20 1 omega-3 acid ethyl esters 1 gram 1 g PO DAILY #30 caps 07/21/20 05/06/25 capsule acetaminophen 325 mg tablet 650 mg PO Q8HR PRN Pain 1 to 4 05/06/25 05/06/25 betamethasone dipropionate 0.05 % 1 applic topical BID PRN rash 05/06/25 05/06/25 topical ointment bisacodyl 10 mg rectal suppository 10 mg AL DAILY PRN constipation 05/06/25 05/06/25 (Laxative (bisacodyl)) cetirizine 10 mg capsule 10 mg PO DAILY PRN allergy s ymptoms 05/06/25 05/06/25 cholecalciferol (vitamin D3) 10 10 mcg PO DAILY 10/26/ 25 10/26/25 mcg (400 unit) capsule losartan 25 mg tablet 25 mg PO DAILY 05/06/2504/12 mineral oil 118 ml AL DAILY PRN constipa tion 05/06/25 05/06/25 omeprazole 20 mg capsule,delayed 20 mg PO DAILY 05/06/25 release oxycodone 5 mg tablet 5 mg PO Q4H PRN pain 5 05/06/25 polyethylene glycol 3350 17 17 g PO DAILY PRN constipa tion 05/06/25 05/06/25 gram/dose oral powder (Miralax) sennosides 8.6 mg capsule (senna) 8.6 - 17.2 mg PO CANDIDA LY PRN 05/06/25 05/06/25 constipation tolterodine 4 mg capsule,extended 4 mg PO DAILY 05/06/25 release 24 hr Allergies Allergies Allergy/AdvReac Type Severity Reaction Status Date / Time nickel Allergy Rash Verified 05/06/25 20:01 iodine AdvReac Itching Verified 05/06/25 20:01 latex AdvReac Rash Verified 05/06/25 20:01 PFSH Active Problems All Active Problems (Updated 05/06/25 @ 21:57 by Mane Najera DNP) Hyponatremia (Acute) Sepsis (Acute) Urinary tract infection (Acute) Right rib fracture (Acute) Contusion of rib on right side (Acute) Left hip pain (Acute) Back pain (Acute) Pre-op evaluation (Acute) History of abdominal aortic aneurysm (AAA) (Acute) Skin rash (Acute) HTN (hypertension) (Acute) Heart murmur, systolic (Acute) Fracture, intertrochanteric, right femur (Acute) Medical History Medical History (Updated 05/06/25 @ 21:57 by Mane Najera DNP) HTN (hypertension) Back pain Heart murmur Femur fracture, right Social History Social History If you are a former smoker, when did you quit? (Date/Year): 1975 Number of Years Smoked: 20 How many cigarettes a day do you smoke? (20 cigarettes=1 Pk): 3 Do you dip or chew tobacco?: No Do you vape?: No Patient requests smoking cessation consult: No Initiate information on smoking cessation: No Do you feel safe in your home environment?: Yes History of physical, verbal, emotional, or financial abuse?: No ETOH Use: Frequency: Daily POLST Patient has POLST: No Review of Systems Status of ROS: 10 or more systems reviewed and unremarkable except as noted in history and below Exam Exam Vital Signs: Vital Signs x48h Temp Pulse Resp BP Pulse Ox 05/06/25 20:05 38.2 C H 104 H 16 91 L 05/06/25 19:48 36.5 C 105 H 16 134/67 H 91 L Constitutional Elderly disheveled female in no acute distress HENMT normocephalic and head/scalp atraumatic Eyes PERRL Respiratory breath sounds equal bilaterally and normal respiratory effort Cardiovascular heart rate abnormal (tachycardic) and regular rhythm noted Gastrointestinal abdomen normal to inspection and abdomen soft to palpation Genitourinary Sanabria in place. Urine cloudy with gross sediment Extremities Healing surgical incision on left hip with juan a Neurology GCS 15 Psychiatry oriented x3 Skin Pale, flaky skin Conclusion/Plan Problem List (1) Sepsis: Plan: Meet SIRS criteria with fever, elevated heart rate, elevated WBC Source is UTI, manage as below Received 1 L fluid bolus Will order an additional Liter which will bring her up above the 30 cc/kg guideline NS at 100 after that She was given a dose of cefepime by the ER provider She has remote history of Pseudomonas in her urine, so we will continue cefepime IV Blood, urine cultures pending Qualifiers: Sepsis acute organ dysfunction status: with acute organ dysfunction S epsis type: sepsis due to unspecified organism Severe sepsis acute organ dysfunction type: encephalopathy Severe sepsis shock status: without septic shock Qualified Code(s): A41.9 - Sepsis, unspecified organism; R65.20 - Severe sepsis without septic shock; G93.41 - Metabolic encephalopathy (2) Hyponatremia: Plan: Sodium 122 on presentation IVF as above Sodium checks every 4 hours (3) Urinary tract infection: Plan: UTI determined by UA Urine cultures pending History of Pseudomonas, so we will treat with cefepime Qualifiers: Urinary tract infection type: acute pyelonephritis Qualified Code(s): N 10 - Acute pyelonephritis (4) HTN (hypertension): Plan: Holding antihypertensives as patient is currently septic with normotension Plan Admit inpatient med floor DNR/DNI Her daughter is her surrogate decision maker/healthcare DPOA Family reports to have POLST form, Will request copy Lab Results Lab results reviewed: Yes 05/06/25 20:04 05/06/25 21:32 Core Measures Anticipated LOS I expect patient to be DC'd or transferred within 96 hours.: Yes DVT/VTE - Prophylaxis VTE/DVT Prophylaxis med ordered at admit?: Yes
[2025-05-06 21:43] LABS: B. PARAPERTUSSIS- RESP PCR PAN NOT DETECTED; B. PERTUSSIS- RESP PCR PANEL NOT DETECTED; C. PNEUMONIAE- RESP PCR PANEL NOT DETECTED; CORONAVIRUS 229E-RESP PCR NOT DETECTED; CORONAVIRUS HKU1-RESP PCR NOT DETECTED; CORONAVIRUS NL63-RESP PCR NOT DETECTED; CORONAVIRUS OC43-RESP PCR NOT DETECTED; HUMAN METAPNEUMOVIRUS NOT DETECTED; INFLUENZA A- RESP PCR PANEL NOT DETECTED; INFLUENZA B - RESP PCR PANEL NOT DETECTED; M. PNEUMONIAE- RESP PCR PANEL NOT DETECTED; PARAINFLUENZA VIRUS 1 NOT DETECTED; PARAINFLUENZA VIRUS 2 NOT DETECTED; PARAINFLUENZA VIRUS 4 NOT DETECTED; RHINOVIRUS/ENTEROVIRUS NOT DETECTED; RSV- RESP PCR PANEL NOT DETECTED; SARS-CoV-2 -RESP PCR PANEL NOT DETECTED
[2025-05-06 21:50] LABS: ALT ALANINE AMINOTRANSFERASE 181.0 IU/L (10-60); AST ASPARTATE AMINOTRANSFERASE 101.0 IU/L (10-42); BUN - BLOOD UREA NITROGEN 24.0 mg/dL (6-20); CARBON DIOXIDE - CO2 25.0 mmol/L (21-32); CREATININE 1.1 mg/dL (0.6-1.3); GFR - MDRD 47.0 (>89)
--- OUTSIDE RECORDS SUMMARY | 2025-05-06 22:06 | EXTERNAL MEDICAL SUMMARY RPT | Continuity of Care Document ---
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 Role Phone Unavailable Unavailable Unavailable Soha Villegas Unavailable Unavailable Allergies and Intolerances date description facility reaction severity 2025-04-20 14:31:04 [facility] (no reactio n) Severe 2025-04-21 09:13:53 [facility] (no reactio n) Severe 2025-04-20 14:31:04 [facility] (no reactio n) Severe 2025-04-21 09:13:53 [facility] (no reactio n) Severe 2025-04-20 14:31:04 [facility] (no reactio n) Mild 2025-04-21 09:13:53 [facility] (no reactio n) Mild 2025-04-20 14:31:04 [facility] (no reactio n) Severe 2025-04-21 09:13:53 [facility] (no reactio n) Severe Medications date description facility 2025-04-25 00:00 Oxycodone [facility] 2025-04-20 00:00 Betamethasone Dipropionate [facility] 2025-04-20 00:00 Ibandronate [facility] Problems date description facility 2025-04-20 00:00 Closed fracture of left hip [facility] 2025-04-20 14:31 Pure hypercholesterolemia, unsp ecified [facility] 2025-04-20 14:31 Mixed hyperlipidemia [facility] 2025-04-21 09:12 Displaced intertroch anteric fracture of right femur, [facility] 2025-04-21 09:14 Displaced intertroch anteric fracture of right femur, [facility] 2025-04-21 18:55 Displaced intertroch anteric fracture of right femur, [facility] 2025-04-21 18:57 Displaced intertroch anteric fracture of right femur, [facility] 2025-04-23 02:20 Displaced intertroch anteric fracture of right femur, initial [facility] 2025-04-23 06:00 Displaced intertroch anteric fracture of right femur, initial [facility] 2025-04-23 06:01 Displaced intertroch anteric fracture of right femur, initial [facility] 2025-04-23 08:41 Displaced intertroch anteric fracture of right femur, initial [facility] 2025-04-23 12:01 Displaced intertroch anteric fracture of right femur, [facility] 2025-04-25 09:25 Unspecified injury of left renny pool, initial encounter [facility] 2025-04-25 09:35 Displaced intertroch anteric fracture of right femur, initial [facility] 2025-04-25 14:14 Displaced intertroch anteric fracture of right femur, initial [facility] 2025-05-06 20:01 Urinary tract infection, site n ot specified [facility] Procedures date description facility 2025-04-20 00:00 reposition left uppe r femur with intramedullary internal fixation device, open approach [facility] 2025-04-20 00:00 XR femur left, 2 views [facility] 2025-04-23 00:00 X-ray of chest, single view [facility] 2025-04-21 00:00 XR fluoro, less than 60 minutes [facility] 2025-04-20 00:00 Unilateral x-ray of hip, two views, with x-ray of pelvis [facility] 2025-04-21 00:00 Unilateral x-ray of hip, two views, with x-ray of pelvis [facility] Results/Labs test date facility value unit notes Result panel 1 Specimen collection (procedure) (no date) [facility] (missing) (missing) (missing) Result panel 2 Specimen collection (procedure) (no date) [facility] (missing) (missing) (missing) Result panel 3 Specimen collection (procedure) (no date) [facility] (missing) (missing) (missing) Result panel 4 Specimen collection (procedure) (no date) [facility] (missing) (missing) (missing) Result panel 5 Specimen collection (procedure) (no date) [facility] (missing) (missing) (missing) Result panel 6 Specimen collection (procedure) (no date) [facility] (missing) (missing) (missing) Result panel 7 Specimen collection (procedure) (no date) [facility] (missing) (missing) (missing) Result panel 8 Specimen collection (procedure) (no date) [facility] (missing) (missing) (missing) Result panel 9 Specimen collection (procedure) (no date) [facility] (missing) (missing) (missing) Result panel 10 Specimen collection (procedure) (no date) [facility] (missing) (missing) (missing) Result panel 11 Specimen collection (procedure) (no date) [facility] (missing) (missing) (missing) Result panel 12 Specimen collection (procedure) (no date) [facility] (missing) (missing) (missing) Result panel 13 Specimen collection (procedure) (no date) [facility] (missing) (missing) (missing) Result panel 14 Specimen collection (procedure) (no date) [facility] (missing) (missing) (missing) Result panel 15 Specimen collection (procedure) (no date) [facility] (missing) (missing) (missing) Result panel 16 Specimen collection (procedure) (no date) [facility] (missing) (missing) (missing) Result panel 17 Specimen collection (procedure) (no date) [facility] (missing) (missing) (missing) Result panel 18 Specimen collection (procedure) (no date) [facility] (missing) (missing) (missing) Result panel 19 Specimen collection (procedure) (no date) [facility] (missing) (missing) (missing) Result panel 20 Specimen collection (procedure) (no date) [facility] (missing) (missing) (missing) Result panel 21 Specimen collection (procedure) (no date) [facility] (missing) (missing) (missing) Result panel 22 Specimen collection (procedure) (no date) [facility] (missing) (missing) (missing) Result panel 23 Specimen collection (procedure) (no date) [facility] (missing) (missing) (missing) Result panel 24 Specimen collection (procedure) (no date) [facility] (missing) (missing) (missing) Result panel 25 Specimen collection (procedure) (no date) [facility] (missing) (missing) (missing) Result panel 26 Specimen collection (procedure) (no date) [facility] (missing) (missing) (missing) Result panel 27 Specimen collection (procedure) (no date) [facility] (missing) (missing) (missing) Result panel 28 Specimen collection (procedure) (no date) [facility] (missing) (missing) (missing) Result panel 29 Specimen collection (procedure) (no date) [facility] (missing) (missing) (missing) Result panel 30 Specimen collection (procedure) (no date) [facility] (missing) (missing) (missing) Result panel 31 Specimen collection (procedure) (no date) [facility] (missing) (missing) (missing) Result panel 32 Specimen collection (procedure) (no date) [facility] (missing) (missing) (missing) Result panel 33 Specimen collection (procedure) (no date) [facility] (missing) (missing) (missing) Result panel 34 Specimen collection (procedure) (no date) [facility] (missing) (missing) (missing) Result panel 35 Specimen collection (procedure) (no date) [facility] (missing) (missing) (missing) Result panel 36 Specimen collection (procedure) (no date) [facility] (missing) (missing) (missing) Result panel 37 Specimen collection (procedure) (no date) [facility] (missing) (missing) (missing) Result panel 38 Specimen collection (procedure) (no date) [facility] (missing) (missing) (missing) Result panel 39 Specimen collection (procedure) (no date) [facility] (missing) (missing) (missing) Result panel 40 Specimen collection (procedure) (no date) [facility] (missing) (missing) (missing) Result panel 41 Specimen collection (procedure) (no date) [facility] (missing) (missing) (missing) Result panel 42 Specimen collection (procedure) (no date) [facility] (missing) (missing) (missing) Result panel 43 Specimen collection (procedure) (no date) [facility] (missing) (missing) (missing) Result panel 44 Specimen collection (procedure) (no date) [facility] (missing) (missing) (missing) Result panel 45 Specimen collection (procedure) (no date) [facility] (missing) (missing) (missing) Result panel 46 Specimen collection (procedure) (no date) [facility] (missing) (missing) (missing) Result panel 47 Specimen collection (procedure) (no date) [facility] (missing) (missing) (missing) Result panel 48 Specimen collection (procedure) (no date) [facility] (missing) (missing) (missing) Result panel 49 Specimen collection (procedure) (no date) [facility] (missing) (missing) (missing) Result panel 50 Specimen collection (procedure) (no date) [facility] (missing) (missing) (missing) Result panel 51 Specimen collection (procedure) (no date) [facility] (missing) (missing) (missing) Result panel 52 Specimen collection (procedure) (no date) [facility] (missing) (missing) (missing) Result panel 53 Specimen collection (procedure) (no date) [facility] (missing) (missing) (missing) Result panel 54 Specimen collection (procedure) (no date) [facility] (missing) (missing) (missing) Result panel 55 Specimen collection (procedure) (no date) [facility] (missing) (missing) (missing) Result panel 56 Specimen collection (procedure) (no date) [facility] (missing) (missing) (missing) Result panel 57 Specimen collection (procedure) (no date) [facility] (missing) (missing) (missing) Result panel 58 Specimen collection (procedure) (no date) [facility] (missing) (missing) (missing) Result panel 59 Specimen collection (procedure) (no date) [facility] (missing) (missing) (missing) Result panel 60 Specimen collection (procedure) (no date) [facility] (missing) (missing) (missing) Result panel 61 Specimen collection (procedure) (no date) [facility] (missing) (missing) (missing) Result panel 62 Specimen collection (procedure) (no date) [facility] (missing) (missing) (missing) Result panel 63 Specimen collection (procedure) (no date) [facility] (missing) (missing) (missing) Result panel 64 Specimen collection (procedure) (no date) [facility] (missing) (missing) (missing) Result panel 65 Specimen collection (procedure) (no date) [facility] (missing) (missing) (missing) Result panel 66 Specimen collection (procedure) (no date) [facility] (missing) (missing) (missing) Result panel 67 Specimen collection (procedure) (no date) [facility] (missing) (missing) (missing) Result panel 68 Specimen collection (procedure) (no date) [facility] (missing) (missing) (missing) Result panel 69 Specimen collection (procedure) (no date) [facility] (missing) (missing) (missing) Result panel 70 Specimen collection (procedure) (no date) [facility] (missing) (missing) (missing) Result panel 71 Specimen collection (procedure) (no date) [facility] (missing) (missing) (missing) Result panel 72 Specimen collection (procedure) (no date) [facility] (missing) (missing) (missing) Result panel 73 Specimen collection (procedure) (no date) [facility] (missing) (missing) (missing) Result panel 74 Specimen collection (procedure) (no date) [facility] (missing) (missing) (missing) Result panel 75 Specimen collection (procedure) (no date) [facility] (missing) (missing) (missing) Result panel 76 Specimen collection (procedure) (no date) [facility] (missing) (missing) (missing) Result panel 77 Specimen collection (procedure) (no date) [facility] (missing) (missing) (missing) Result panel 78 Specimen collection (procedure) (no date) [facility] (missing) (missing) (missing) Result panel 79 Specimen collection (procedure) (no date) [facility] (missing) (missing) (missing) Result panel 80 Specimen collection (procedure) (no date) [facility] (missing) (missing) (missing) Result panel 81 Specimen collection (procedure) (no date) [facility] (missing) (missing) (missing) Result panel 82 Specimen collection (procedure) (no date) [facility] (missing) (missing) (missing) Result panel 83 Specimen collection (procedure) (no date) [facility] (missing) (missing) (missing) Result panel 84 White blood cell count 2025-04-20 14:54:07 [facility] 1 2.1 X10^3/uL (missing) Result panel 85 Red blood cell count 2025-04-20 14:54:07 [facility] 4.5 5 X10^6/uL (missing) Result panel 86 Hemoglobin 2025-04-20 14:54:07 [facility] 12.8 g/d L (missing) Result panel 87 Hematocrit 2025-04-20 14:54:07 [facility] 39.1 % (missing) Result panel 88 MCV (mean corpuscular volume ) determination 2025-04-20 14:54:07 [facility] 85.9 fL (mis sing) Result panel 89 Mean corpuscular hemoglobin (MCH) determination 2025-04-20 14:54:07 [facility] 28.1 PG (missing) Result panel 90 Mean corpuscular hemoglobin concentration (MCHC) determination 2025-04-20 14:54:07 [facility] 32.7 % (mis sing) Result panel 91 Red cell distribution width determination 2025-04-20 14:54:07 [facility] 14.3 % (mis sing) Result panel 92 Platelet count 2025-04-20 14:54:07 [facility] 178 X10^3/uL (missing) Result panel 93 Automated neutrophil % 2025-04-20 14:54:07 [facility] 8 1.1 % (missing) Result panel 94 Automated lymphocyte % 2025-04-20 14:54:07 [facility] 8 .5 % (missing) Result panel 95 Automated monocyte % 2025-04-20 14:54:07 [facility] 6.1 % (missing) Result panel 96 Automated eosinophil % 2025-04-20 14:54:07 [facility] 3 .5 % (missing) Result panel 97 Automated basophil % 2025-04-20 14:54:07 [facility] 0.8 % (missing) Result panel 98 Absolute neutrophil count 2025-04-20 14:54:07 [facility]00 [facility]L (missing) Result panel 99 Absolute lymphocyte count 2025-04-20 14:54:07 [facility] 1000 /uL (missing) Result panel 100 Automated blood monocyte count 2025-04-20 14:54:07 [facility] 700 /uL (missing) Result panel 101 Automated eosinophil count 2025-04-20 14:54:07 [facility] 400 /uL (missing) Result panel 102 Automated basophil count 2025-04-20 14:54:07 [facility] 100 /uL (missing) Result panel 103 Sodium [Moles/volume] in Serum or Plasma 2025-04-20 14:54:07 [facility] 136 mmol/L ( issing) Result panel 104 Potassium [Moles/volume] in Serum or Plasma 2025-04-20 14:54:07 [facility] 4.5 mmol/L ( issing) Result panel 105 Chloride [Moles/volume] in Serum or Plasma 2025-04-20 14:54:07 [facility] 102 mmol/L ( issing) Result panel 106 Carbon dioxide, total [Moles/volume] in Serum or Plasma 2025-04-20 14:54:07 [facility] 27 mmol/L ([facility]) Result panel 107 Urea nitrogen [Mass/volume] in Serum or Plasma 2025-04-20 14:54:07 [facility] 21 mg/dL ( issing) Result panel 108 Creatinine [Mass/volume] in Serum or Plasma 2025-04-20 14:54:07 [facility] 0.85 mg/dL ([facility]) Result panel 109 Glomerular filtration rate (GFR) estimation 2025-04-20 14:54:07 [facility] > 60 mL/min (missing) (missing) Result panel 110 BUN/creatinine ratio 2025-04-20 14:54:07 [facility] 24. 7 (missing) (missing) Result panel 111 Glucose [Mass/volume] in Serum or Plasma 2025-04-20 14:54:07 [facility] 124 mg/dL ([facility]) Result panel 112 Calcium [Mass/volume] in Serum or Plasma 2025-04-20 14:54:07 [facility] 8.9 mg/dL ([facility]) Result panel 113 Bilirubin.total [Mass/volume ] in Serum or Plasma 2025-04-20 14:54:07 [facility] 0.5 mg/dL (missing) Result panel 114 Aspartate aminotransferase [Enzymatic activity/volume] in Serum or Plasma 2025-04-20 14:54:07 [facility] 36 IU/L ([facility]) Result panel 115 Alanine aminotransferase [Enzymatic activity/volume] in Serum or Plasma 2025-04-20 14:54:07 [facility] 23 IU/L ([facility]) Result panel 116 Alkaline phosphatase [Enzyma tic activity/volume] in Serum or Plasma 2025-04-20 14:54:07 [facility] 70 U/L (miss ing) Result panel 117 Protein total ser/plas 2025-04-20 14:54:07 [facility] 7 .0 g/dL (missing) Result panel 118 Albumin [Mass/volume] in Ser um or Plasma 2025-04-20 14:54:07 [facility] 4.1 g/dL (miss ing) Result panel 119 Globulin [Mass/volume] in Serum by calculation 2025-04-20 14:54:07 [facility] 2.9 g/dL (missing) Result panel 120 Albumin/Globulin [Mass Ratio] in Serum or Plasma 2025-04-20 14:54:07 [facility] 1.4 (miss ing) (missing) Result panel 121 X-ray report 2025-04-20 15:46 [facility] (missing) (mis sing) (missing) Result panel 122 X-ray report 2025-04-20 15:46 [facility] (missing) (mis sing) (missing) Result panel 123 Basophils Percent Auto 2025-04-20:[address] [place] [address] 0.8 % (missing) Basophils Absolute Auto 2025-04-20 :[address] [place] [address] 100 /ul (missing) Lymphocytes Absolute Auto 2025-04-20 :[address] [place] [address] 1 000 /ul (missing) White Blood Cell Count 2025-04-20 :[address] [place] [address] 12.1 x10 3/ul (missing) Hemoglobin 2025-04-20 :[address] [place] [address] 12.8 g/dl (missing) Red Cell Distribution Width 2025-04-20 :[address] [place] [address] 14.3 % (missing) Platelet Count 2025-04-20 :[address] [place] [address] 178 x1 0 3/ul (missing) Mean Corpuscular Hemoglobin 2025-04-[address] [place] [address] 28.1 pg (missing) Eosinophils Percent Auto 2025-04-[address] [place] [address] 3. 5 % (missing) Mean Corpuscular HGB Conc 2025-04-[address] [place] [address] 3 2.7 % (missing) Hematocrit 2025-04-[address] [place] [address] 39.1 % (missing) Red Blood Cell Count 2025-04-[address] [place] [address] 4.55 x10 6/ul (missing) Eosinophils Absolute Auto 2025-04-[address] [place] [address] 4 00 /ul (missing) Monocytes Percent Auto 2025-04-[address] [place] [address] 6.1 % (missing) Monocytes Absolute Auto 2025-04-[address] [place] [address] 700 /ul (missing) Lymphocytes Percent Auto 2025-04-[address] [place] [address] 8. 5 % (missing) Neutrophils Percent Auto 2025-04-[address] [place] [address] 81 .1 % (missing) Mean Corpuscular Volume 2025-04-[address] [place] [address] 85. 9 fl (missing) Neutrophils Absolute Auto 2025-04-20 :[address] [place] [address] 9 800 /ul (missing) Result panel 124 X-ray report 2025-04-20 :[address] [place] [address] (missing) (mis sing) (missing) Result panel 125 X-ray report 2025-04-20 :[address] [place] [address] (missing) (mis sing) (missing) Result panel 126 Estimated Glomerular Filt Rate 2025-04-20 :12 [facility] > 60 ml/min Reported eGFR is based the CKD-EPI 2020 equation that does not use a race coefficient. An eGFR below 60 mL/min/1.73m2 suggests that some kidney damage has occurred, and indicative of chronic kidney disease if persisting greater than 3 months. An eGFR less than 15 is indicative of kidney failure. Bilirubin Total 2025-04-20 16:12 [facility] 0.5 mg/dl (missing) Creatinine 2025-04-20 16:12 [facility] 0.85 mg/dl (missing) Albumin Globulin Ratio 2025-04-20 16:12 [facility] 1.4 (missing) (missing) Chloride 2025-04-20 16:12 [facility] 102 mmol/l (missing) Glucose 2025-04-20 16:12 [facility] 124 mg/dl (missing) Sodium 2025-04-20 16:12 [facility] 136 mmol/l (missing) Globulin 2025-04-20 16:12 [facility] 2.9 g/dl (missing) Blood Urea Nitrogen 2025-04-20 16:12 [facility] 21 mg/dl (missing) Alanine Aminotransferase 2025-04-20 16:12 [facility] 23 iu/l (missing) BUN Creatinine Ratio 2025-04-20 16:12 [facility] 24.7 (missing) (missing) Carbon Dioxide 2025-04-20 16:12 [facility] 27 mmol/l (missing) Aspartate Aminotransferase 2025-04-20 16:12 [facility] 36 iu/l (missing) Albumin 2025-04-20 16:12 [facility] 4.1 g/dl (missing) Potassium 2025-04-20 16:12 [facility] 4.5 mmol/l (missing) Total Protein 2025-04-20 16:12 [facility] 7.0 g/dl (missing) Alkaline Phosphatase 2025-04-20 16:12 [facility] 70 u/l (missing) Calcium 2025-04-20 16:12 [facility] 8.9 mg/dl (missing) Result panel 127 X-ray report 2025-04-20 18:15 [facility] (missing) (mis sing) (missing) Result panel 128 Emergency department note 2025-04-20 23:28 [facility] (missing) (missing) (missing ) Result panel 129 Basophils Percent Auto 2025-04-21 06:55 [facility] 0.7 % (missing) Hemoglobin 2025-04-21 06:[address] [place] [address] 10.6 g/dl (missing) Basophils Absolute Auto 2025-04-21 06:55 [facility] 100 /ul (missing) Lymphocytes Absolute Auto 2025-04-21 06:[address] [place] [address] 1 100 /ul (missing) Platelet Count 2025-04-21 06:[address] [place] [address] 138 x1 0 3/ul (missing) Lymphocytes Percent Auto 2025-04-21 06:[address] [place] [address] 14 .3 % (missing) Red Cell Distribution Width 2025-04-21 06:[address] [place] [address] 14.4 % (missing) Mean Corpuscular Hemoglobin 2025-04-21 06:[address] [place] [address] 28.7 pg (missing) Red Blood Cell Count 2025-04-21 06:[address] [place] [address] 3.70 x10 6/ul (missing) Eosinophils Percent Auto 2025-04-21 06:[address] [place] [address] 3. 8 % (missing) Eosinophils Absolute Auto 2025-04-21 06:[address] [place] [address] 3 00 /ul (missing) Hematocrit 2025-04-21 06:[address] [place] [address] 31.5 % (missing) Mean Corpuscular HGB Conc 2025-04-21 06:[address] [place] [address] 3 3.7 % (missing) Neutrophils Absolute Auto 2025-04-21 06:[address] [place] [address] 5 700 /ul (missing) Monocytes Absolute Auto 2025-04-21 06:[address] [place] [address] 700 /ul (missing) Neutrophils Percent Auto 2025-04-21 06:[address] [place] [address] 71 .9 % (missing) White Blood Cell Count 2025-04-21 06:[address] [place] [address] 8.0 x10 3/ul (missing) Mean Corpuscular Volume 2025-04-21 06:[address] [place] [address] 85. 3 fl (missing) Monocytes Percent Auto 2025-04-21 06:[address] [place] [address] 9.3 % (missing) Result panel 130 Estimated Glomerular Filt Rate 2025-04-21 07:26 [facility] > 60 ml/min Reported eGFR is based the CKD-EPI 2020 equation that does not use a race coefficient. An eGFR below 60 mL/min/1.73m2 suggests that some kidney damage has occurred, and indicative of chronic kidney disease if persisting greater than 3 months. An eGFR less than 15 is indicative of kidney failure. Bilirubin Total 2025-04-21 07:26 [facility] 0.6 mg/dl (missing) Creatinine 2025-04-21 07:26 [facility] 0.88 mg/dl (missing) Albumin Globulin Ratio 2025-04-21 07:26 [facility] 1.3 (missing) (missing) Chloride 2025-04-21 07:26 [facility] 103 mmol/l (missing) Glucose 2025-04-21 07:26 [facility] 117 mg/dl (missing) Sodium 2025-04-21 07:26 [facility] 134 mmol/l (missing) Alanine Aminotransferase 2025-04-21 07:26 [facility] 16 iu/l (missing) Blood Urea Nitrogen 2025-04-21 07:26 [facility] 19 mg/dl (missing) Globulin 2025-04-21 07:26 [facility] 2.6 g/dl (missing) BUN Creatinine Ratio 2025-04-21 07:26 [facility] 21.6 (missing) (missing) Aspartate Aminotransferase 2025-04-21 07:26 [facility] 26 iu/l (missing) Carbon Dioxide 2025-04-21 07:26 [facility] 26 mmol/l (missing) Albumin 2025-04-21 07:[address] [place] [address] 3.4 g/dl (missing) Potassium 2025-04-21 07:[address] [place] [address] 4.5 mmol/l (missing) Total Protein 2025-04-21 07:26 [facility] 6.0 g/dl (missing) Alkaline Phosphatase 2025-04-21 07:26 [facility] 60 u/l (missing) Calcium 2025-04-21 07:[address] [place], [place] [address] 8.3 mg/dl (missing) Result panel 131 X-ray report 2025-04-21 20:59 [facility] (missing) (mis sing) (missing) Result panel 132 X-ray report 2025-04-21 21:38 [facility] (missing) (mis sing) (missing) Result panel 133 Basophils Percent Auto 2025-04-22 05:27 [facility] 0.5 % (missing) Basophils Absolute Auto 2025-04-22 05:27 [facility] 100 /ul (missing) Platelet Count 2025-04-22 05:27 [facility] 104 x1 0 3/ul (missing) Lymphocytes Percent Auto 2025-04-22 05:27 [facility] 13 .2 % (missing) Lymphocytes Absolute Auto 2025-04-22 05:27 [facility] 1 300 /ul (missing) Red Cell Distribution Width 2025-04-22 05:[address] [place] [address] 14.3 % (missing) Red Blood Cell Count 2025-04-22 05:[address] [place] [address] 2.86 x10 6/ul (missing) Hematocrit 2025-04-22 05:[address] [place] [address] 24.6 % (missing) Mean Corpuscular Hemoglobin 2025-04-22 05:[address] [place] [address] 28.7 pg (missing) Mean Corpuscular HGB Conc 2025-04-22 05:[address] [place] [address] 3 3.4 % (missing) Eosinophils Percent Auto 2025-04-22 05:[address] [place] [address] 7. 1 % (missing) Monocytes Percent Auto 2025-04-22 05:[address] [place] [address] 7.5 % (missing) Eosinophils Absolute Auto 2025-04-22 05:[address] [place] [address] 7 00 /ul (missing) Monocytes Absolute Auto 2025-04-22 05:[address] [place] [address] 700 /ul (missing) Neutrophils Percent Auto 2025-04-22 05:[address] [place] [address] 71 .7 % (missing) Neutrophils Absolute Auto 2025-04-22 05:[address] [place] [address] 7 100 /ul (missing) Hemoglobin 2025-04-22 05:[address] [place] [address] 8.2 g/dl (missing) Mean Corpuscular Volume 2025-04-22 05:[address] [place] [address] 85. 9 fl (missing) White Blood Cell Count 2025-04-22 05:[address] [place] [address] 9.9 x10 3/ul (missing) Result panel 134 Bilirubin Total 2025-04-22 05:[address] [place] [address] 0.2 mg/dl (missing) Creatinine 2025-04-22 05:[address] [place] [address] 1.09 mg/dl (missing) Albumin Globulin Ratio 2025-04-22 05:[address] [place] [address] 1.2 (missing) (missing) Chloride 2025-04-22 05:[address] [place] [address] 100 mmol/l (missing) Sodium 2025-04-22 05:[address] [place] [address] 129 mmol/l (missing) Alanine Aminotransferase 2025-04-22 05:[address] [place] [address] 13 iu/l (missing) Glucose 2025-04-22 05:[address] [place] [address] 140 mg/dl (missing) Globulin 2025-04-22 05:[address] [place] [address] 2.3 g/dl (missing) Albumin 2025-04-22 05:[address] [place] [address] 2.8 g/dl (missing) BUN Creatinine Ratio 2025-04-22 05:[address] [place] [address] 22.9 (missing) (missing) Blood Urea Nitrogen 2025-04-22 05:[address] [place] [address] 25 mg/dl (missing) Carbon Dioxide 2025-04-22 05:[address] [place] [address] 26 mmol/l (missing) Aspartate Aminotransferase 2025-04-22 05:[address] [place] [address] 27 iu/l (missing) Potassium 2025-04-22 05:[address] [place] [address] 4.4 mmol/l (missing) Estimated Glomerular Filt Rate 2025-04-22 05:[address] [place] [address] 49 ml/min Reported eGFR is based the CKD-EPI 2020 equation that does not use a race coefficient. An eGFR below 60 mL/min/1.73m2 suggests that some kidney damage has occurred, and indicative of chronic kidney disease if persisting greater than 3 months. An eGFR less than 15 is indicative of kidney failure. Total Protein 2025-04-22 05:[address] [place] [address] 5.1 g/dl (missing) Alkaline Phosphatase 2025-04-22 05:[address] [place] [address] 53 u/l (missing) Calcium 2025-04-22 05:[address] [place] [address] 7.9 mg/dl (missing) Result panel 135 Basophils Percent Auto 2025-04-23 05:[address] [place] [address] 0.8 % (missing) Eosinophils Percent Auto 2025-04-23 05:[address] [place] [address] 10 .0 % (missing) Basophils Absolute Auto 2025-04-23 05:[address] [place] [address] 100 /ul (missing) Lymphocytes Absolute Auto 2025-04-23 05:[address] [place] [address] 1 000 /ul (missing) Lymphocytes Percent Auto 2025-04-23 05:[address] [place] [address] 11 .8 % (missing) Red Cell Distribution Width 2025-04-23 05:[address] [place] [address] 14.3 % (missing) Red Blood Cell Count 2025-04-23 05:[address] [place] [address] 2.45 x10 6/ul (missing) Hematocrit 2025-04-23 05:[address] [place] [address] 21.0 % (missing) Mean Corpuscular Hemoglobin 2025-04-23 05:[address] [place] [address] 28.8 pg (missing) Mean Corpuscular HGB Conc 2025-04-23 05:[address] [place] [address] 3 3.6 % (missing) Neutrophils Absolute Auto 2025-04-23 05:[address] [place] [address] 6 000 /ul (missing) Neutrophils Percent Auto 2025-04-23 05:58 [facility] 69 .3 % (missing) Hemoglobin 2025-04-23 05:58 [facility] 7.1 g/dl (missing) Monocytes Absolute Auto 2025-04-23 05:58 [facility] 700 /ul (missing) Monocytes Percent Auto 2025-04-23 05:58 [facility] 8.1 % (missing) White Blood Cell Count 2025-04-23 05:58 [facility] 8.6 x10 3/ul (missing) Mean Corpuscular Volume 2025-04-23 05:58 [facility] 85. 7 fl (missing) Eosinophils Absolute Auto 2025-04-23 05:58 [facility] 9 00 /ul (missing) Platelet Count 2025-04-23 05:58 [facility] 98 x1 0 3/ul (missing) Result panel 136 Estimated Glomerular Filt Rate 2025-04-23 06:11 [facility] > 60 ml/min Reported eGFR is based the CKD-EPI 2020 equation that does not use a race coefficient. An eGFR below 60 mL/min/1.73m2 suggests that some kidney damage has occurred, and indicative of chronic kidney disease if persisting greater than 3 months. An eGFR less than 15 is indicative of kidney failure. Bilirubin Total 2025-04-23 06:11 [facility] 0.3 mg/dl (missing) Creatinine 2025-04-23 06:11 [facility] 0.81 mg/dl (missing) Albumin Globulin Ratio 2025-04-23 06:11 [facility] 1.1 (missing) (missing) Chloride 2025-04-23 06:11 [facility] 101 mmol/l (missing) Glucose 2025-04-23 06:11 [facility] 105 mg/dl (missing) Alanine Aminotransferase 2025-04-23 06:11 [facility] 12 iu/l (missing) Sodium 2025-04-23 06:11 [facility] 129 mmol/l (missing) Blood Urea Nitrogen 2025-04-23 06:11 [facility] 16 mg/dl (missing) BUN Creatinine Ratio 2025-04-23 06:11 [facility] 19.8 (missing) (missing) Globulin 2025-04-23 06:11 [facility] 2.1 g/dl (missing) Albumin 2025-04-23 06:11 [facility] 2.4 g/dl (missing) Aspartate Aminotransferase 2025-04-23 06:11 [facility] 27 iu/l (missing) Carbon Dioxide 2025-04-23 06:11 [facility] 27 mmol/l (missing) Total Protein 2025-04-23 06:11 [facility] 4.5 g/dl (missing) Alkaline Phosphatase 2025-04-23 06:11 [facility] 48 u/l (missing) Potassium 2025-04-23 06:11 [facility] 5.0 mmol/l (missing) Calcium 2025-04-23 06:11 [facility] 7.7 mg/dl (missing) Result panel 137 Blood Type 2025-04-23 12:07 [facility] A Positive (missing) Results at Enter/Edit [...] 36-46 % Antibo dy Screen 2025-04-23 12:07 [facility] NEGATIVE (missing) (missing) Packed Cells 2025-04-23 12:07 [facility] TRANSFUSE D PRODUCT: Packed Cells COUNT: 1 (missing) (missing) Result panel 138 Blood Type 2025-04-23 13:33 [facility] A Positive (missing) Results at Enter/Edit [...] 36-46 % Antibo dy Screen 2025-04-23 13:33 [facility] NEGATIVE (missing) (missing) Result panel 139 Packed Cells 2025-04-23 13:34 [facility] TRANSFUS ED PRODUCT: Packed Cells COUNT: 1 (missing) (missing) Result panel 140 Blood Type 2025-04-23 15:22 [facility] A Positive (missing) Results at Enter/Edit [...] 36-46 % Antibo dy Screen 2025-04-23 15:22 [facility] NEGATIVE (missing) (missing) Result panel 141 Blood Type 2025-04-23 15:23 [facility] A Positive (missing) Results at Enter/Edit [...] 36-46 % Antibo dy Screen 2025-04-23 15:23 [facility] NEGATIVE (missing) (missing) Packed Cells 2025-04-23 15:23 [facility] TRANSFUSE D PRODUCT: Packed Cells COUNT: 1 (missing) (missing) Result panel 142 X-ray report 2025-04-23 19:57 [facility] (missing) (mis sing) (missing) Result panel 143 Albumin/Globulin [Mass Ratio] in Serum or Plasma 2025-04-24 04:15:07 [facility] 1.2 ([facility]) (missing) Result panel 144 Bilirubin.total [Mass/volume ] in Serum or Plasma 2025-04-24 04:15:07 [facility] 0.8 mg/dL (missing) Result panel 145 Aspartate aminotransferase [Enzymatic activity/volume] in Serum or Plasma 2025-04-24 04:15:07 [facility] 26 IU/L ([facility]) Result panel 146 Alanine aminotransferase [Enzymatic activity/volume] in Serum or Plasma 2025-04-24 04:15:07 [facility] 12 IU/L ([facility]) Result panel 147 Alkaline phosphatase [Enzyma tic activity/volume] in Serum or Plasma 2025-04-24 04:15:07 [facility] 58 U/L ([facility]) Result panel 148 Protein total ser/plas 2025-04-24 04:15:07 [facility] 4 .8 g/dL (missing) Result panel 149 Albumin [Mass/volume] in Ser um or Plasma 2025-04-24 04:15:07 [facility] 2.6 g/dL ([facility]) Result panel 150 Globulin [Mass/volume] in Serum by calculation 2025-04-24 04:15:07 [facility] 2.2 g/dL (missing) Result panel 151 Basophils Percent Auto 2025-04-24 04:44 [facility] 0.7 % (missing) Basophils Absolute Auto 2025-04-24 04:[address] [place] [address] 100 /ul (missing) Platelet Count 2025-04-24 04:44 [facility] 128 x1 0 3/ul (missing) Red Cell Distribution Width 2025-04-24 04:44 [facility] 14.1 % (missing) Lymphocytes Absolute Auto 2025-04-24 04:44 [facility] 1 400 /ul (missing) Lymphocytes Percent Auto 2025-04-24 04:[address] [place] [address] 15 .7 % (missing) Hematocrit 2025-04-24 04:[address] [place] [address] 25.4 % (missing) Mean Corpuscular Hemoglobin 2025-04-24 04:[address] [place] [address] 29.1 pg (missing) Red Blood Cell Count 2025-04-24 04:[address] [place] [address] 3.00 x10 6/ul (missing) Mean Corpuscular HGB Conc 2025-04-24 04:44 [facility] 3 4.4 % (missing) Neutrophils Absolute Auto 2025-04-24 04:44 [facility] 5 700 /ul (missing) Neutrophils Percent Auto 2025-04-24 04:44 [facility] 65 .7 % (missing) Monocytes Absolute Auto 2025-04-24 04:44 [facility] 700 /ul (missing) Monocytes Percent Auto 2025-04-24 04:44 [facility] 8.6 % (missing) White Blood Cell Count 2025-04-24 04:44 [facility] 8.6 x10 3/ul (missing) Hemoglobin 2025-04-24 04:44 [facility] 8.7 g/dl (missing) Eosinophils Absolute Auto 2025-04-24 04:44 [facility] 8 00 /ul (missing) Mean Corpuscular Volume 2025-04-24 04:44 [facility] 84. 7 fl (missing) Eosinophils Percent Auto 2025-04-24 04:44 [facility] 9. 3 % (missing) Result panel 152 Estimated Glomerular Filt Rate 2025-04-24 04:51 [facility] > 60 ml/min Reported eGFR is based the CKD-EPI 2020 equation that does not use a race coefficient. An eGFR below 60 mL/min/1.73m2 suggests that some kidney damage has occurred, and indicative of chronic kidney disease if persisting greater than 3 months. An eGFR less than 15 is indicative of kidney failure. Bilirubin Total 2025-04-24 04:51 [facility] 0.8 mg/dl (missing) Creatinine 2025-04-24 04:51 [facility] 0.86 mg/dl (missing) Albumin Globulin Ratio 2025-04-24 04:51 [facility] 1.2 (missing) (missing) Glucose 2025-04-24 04:51 [facility] 111 mg/dl (missing) Alanine Aminotransferase 2025-04-24 04:51 [facility] 12 iu/l (missing) Sodium 2025-04-24 04:51 [facility] 129 mmol/l (missing) Blood Urea Nitrogen 2025-04-24 04:51 [facility] 15 mg/dl (missing) BUN Creatinine Ratio 2025-04-24 04:51 [facility] 17.4 (missing) (missing) Globulin 2025-04-24 04:51 [facility] 2.2 g/dl (missing) Albumin 2025-04-24 04:51 [facility] 2.6 g/dl (missing) Aspartate Aminotransferase 2025-04-24 04:51 [facility] 26 iu/l (missing) Carbon Dioxide 2025-04-24 04:51 [facility] 29 mmol/l (missing) Potassium 2025-04-24 04:51 [facility] 4.7 mmol/l (missing) Total Protein 2025-04-24 04:51 [facility] 4.8 g/dl (missing) Alkaline Phosphatase 2025-04-24 04:51 [facility] 58 u/l (missing) Calcium 2025-04-24 04:51 [facility] 8.3 mg/dl (missing) Chloride 2025-04-24 04:51 [facility] 99 mmol/l (missing) Result panel 153 Estimated Glomerular Filt Rate 2025-04-24 05:00 [facility] > 60 ml/min Reported eGFR is based the CKD-EPI 2020 equation that does not use a race coefficient. An eGFR below 60 mL/min/1.73m2 suggests that some kidney damage has occurred, and indicative of chronic kidney disease if persisting greater than 3 months. An eGFR less than 15 is indicative of kidney failure. Bilirubin Total 2025-04-24 05:00 [facility] 0.8 mg/dl (missing) Creatinine 2025-04-24 05:00 [facility] 0.86 mg/dl (missing) Albumin Globulin Ratio 2025-04-24 05:00 [facility] 1.2 (missing) (missing) Glucose 2025-04-24 05:00 [facility] 111 mg/dl (missing) Alanine Aminotransferase 2025-04-24 05:00 [facility] 12 iu/l (missing) Sodium 2025-04-24 05:00 [facility] 129 mmol/l (missing) Blood Urea Nitrogen 2025-04-24 05:00 [facility] 15 mg/dl (missing) BUN Creatinine Ratio 2025-04-24 05:00 [facility] 17.4 (missing) (missing) Globulin 2025-04-24 05:00 [facility] 2.2 g/dl (missing) Albumin 2025-04-24 05:00 [facility] 2.6 g/dl (missing) NT-proBNP (BNP-Adult 18+) 2025-04-24 05:00 [facility] 2430 pg/ml The following cut-points have [...] or exclude HF. Aspartate Aminotransferase 2025-04-24 05:00 [facility] 26 iu/l (missing) Carbon Dioxide 2025-04-24 05:00 [facility] 29 mmol/l (missing) Potassium 2025-04-24 05:00 [facility] 4.7 mmol/l (missing) Total Protein 2025-04-24 05:00 [facility] 4.8 g/dl (missing) Alkaline Phosphatase 2025-04-24 05:00 [facility] 58 u/l (missing) Calcium 2025-04-24 05:[address] [place] [address] 8.3 mg/dl (missing) Chloride 2025-04-24 05:[address] [place] [address] 99 mmol/l (missing) Result panel 154 White blood cell count 2025-04-25 04:10:07 [facility] 8 .1 X10^3/uL (missing) Result panel 155 Red blood cell count 2025-04-25 04:10:07 [facility] 3.1 1 X10^6/uL (missing) Result panel 156 Hemoglobin 2025-04-25 04:10:07 [facility] 9.0 g/d L (missing) Result panel 157 Hematocrit 2025-04-25 04:10:07 [facility] 26.5 % (missing) Result panel 158 MCV (mean corpuscular volume ) determination 2025-04-25 04:10:07 [facility] 85.1 fL (mis sing) Result panel 159 Mean corpuscular hemoglobin (MCH) determination 2025-04-25 04:10:07 [facility] 28.9 PG (missing) Result panel 160 Mean corpuscular hemoglobin concentration (MCHC) determination 2025-04-25 04:10:07 [facility] 34.0 % (mis sing) Result panel 161 Red cell distribution width determination 2025-04-25 04:10:07 [facility] 13.9 % (mis sing) Result panel 162 Platelet count 2025-04-25 04:10:07 [facility] 170 X10^3/uL (missing) Result panel 163 Automated neutrophil % 2025-04-25 04:10:07 [facility] 6 2.6 % (missing) Result panel 164 Automated lymphocyte % 2025-04-25 04:10:07 [facility] 1 7.3 % (missing) Result panel 165 Automated monocyte % 2025-04-25 04:10:07 [facility] 8.3 % (missing) Result panel 166 Automated eosinophil % 2025-04-25 04:10:07 [facility] 1 1.0 % (missing) Result panel 167 Automated basophil % 2025-04-25 04:10:07 [facility] 0.8 % (missing) Result panel 168 Absolute neutrophil count 2025-04-25 04:10:[facility] 5100 /[facility]L (missing) Result panel 169 Absolute lymphocyte count 2025-04-25 04:10:07 [facility] 1400 /uL (missing) Result panel 170 Automated blood monocyte count 2025-04-25 04:10:07 [facility] 700 /uL (missing) Result panel 171 Automated eosinophil count 2025-04-25 04:10:07 [facility] 900 /uL (missing) Result panel 172 Automated basophil count 2025-04-25 04:10:07 [facility] 100 /uL (missing) Result panel 173 Natriuretic peptide.B prohormone N-Terminal [Mass/volume] in Serum or Plasma 2025-04-25 04:10:07 [facility] 1550 pg/mL (miss ing) Result panel 174 Sodium [Moles/volume] in Serum or Plasma 2025-04-25 04:10:07 [facility] 128 mmol/L (m issing) Result panel 175 Potassium [Moles/volume] in Serum or Plasma 2025-04-25 04:10:07 [facility] 3.9 mmol/L ([facility]) Result panel 176 Chloride [Moles/volume] in Serum or Plasma 2025-04-25 04:10:07 [facility] 95 mmol/L ([facility]) Result panel 177 Carbon dioxide, total [Moles/volume] in Serum or Plasma 2025-04-25 04:10:07 [facility] 32 mmol/L ([facility]) Result panel 178 Urea nitrogen [Mass/volume] in Serum or Plasma 2025-04-25 04:10:07 [facility] Result panel 179 Creatinine [Mass/volume] in Serum or Plasma 2025-04-25 04:10:07 [facility] 0.87 mg/dL ([facility]) Result panel 180 Glomerular filtration rate (GFR) estimation 2025-04-25 04:10:07 [facility] > 60 mL/min (missing) (missing) Result panel 181 BUN/creatinine ratio 2025-04-25 04:10:07 [facility] 17. 2 (missing) (missing) Result panel 182 Glucose [Mass/volume] in Serum or Plasma 2025-04-25 04:10:07 [facility] 118 mg/dL ([facility]) Result panel 183 Calcium [Mass/volume] in Serum or Plasma 2025-04-25 04:10:07 [facility] 8.6 mg/dL ([facility]) Result panel 184 Basophils Percent Auto 2025-04-25 04:[address] [place] [address] 0.8 % (missing) Basophils Absolute Auto 2025-04-25 04:[address] [place] [address] 100 /ul (missing) Eosinophils Percent Auto 2025-04-25 04:[address] [place] [address] 11 .0 % (missing) Red Cell Distribution Width 2025-04-25 04:[address] [place] [address] 13.9 % (missing) Lymphocytes Absolute Auto 2025-04-25 04:[address] [place] [address] 1 400 /ul (missing) Lymphocytes Percent Auto 2025-04-25 04:[address] [place] [address] 17 .3 % (missing) Platelet Count 2025-04-25 04:[address] [place] [address] 170 x1 0 3/ul (missing) Hematocrit 2025-04-25 04:[address] [place] [address] 26.5 % (missing) Mean Corpuscular Hemoglobin 2025-04-25 04:[address] [place] [address] 28.9 pg (missing) Red Blood Cell Count 2025-04-25 04:38 [facility] 3.11 x10 6/ul (missing) Mean Corpuscular HGB Conc 2025-04-25 04:38 [facility] 3 4.0 % (missing) Neutrophils Absolute Auto 2025-04-25 04:38 [facility] 5 100 /ul (missing) Neutrophils Percent Auto 2025-04-25 04:[address] [place] [address] 62 .6 % (missing) Monocytes Absolute Auto 2025-04-25 04:[address] [place] [address] 700 /ul (missing) White Blood Cell Count 2025-04-25 04:38 [facility] 8.1 x10 3/ul (missing) Monocytes Percent Auto 2025-04-25 04:38 [facility] 8.3 % (missing) Mean Corpuscular Volume 2025-04-25 04:38 [facility] 85. 1 fl (missing) Hemoglobin 2025-04-25 04:[address] [place] [address] 9.0 g/dl (missing) Eosinophils Absolute Auto 2025-04-25 04:[address] [place] [address] 9 00 /ul (missing) Result panel 185 Estimated Glomerular Filt Rate 2025-04-25 04:48 [facility] > 60 ml/min Reported eGFR is based the CKD-EPI 2020 equation that does not use a race coefficient. An eGFR below 60 mL/min/1.73m2 suggests that some kidney damage has occurred, and indicative of chronic kidney disease if persisting greater than 3 months. An eGFR less than 15 is indicative of kidney failure. Creatinine 2025-04-25 04:48 [facility] 0.87 mg/dl (missing) Glucose 2025-04-25 04:48 [facility] 118 mg/dl (missing) Sodium 2025-04-25 04:48 [facility] 128 mmol/l (missing) Blood Urea Nitrogen 2025-04-25 04:48 [facility] 15 mg/dl (missing ) BUN Creatinine Ratio 2025-04-25 04:48 [facility] 17.2 (missing) (missing ) Potassium 2025-04-25 04:48 [facility] 3.9 mmol/l (missing) Carbon Dioxide 2025-04-25 04:48 [facility] 32 mm ol/l (missing) Calcium 2025-04-25 04:48 [facility] 8.6 mg/dl (missing) Chloride 2025-04-25 04:48 [facility] 95 mmol/l (missing) Result panel 186 Estimated Glomerular Filt Rate 2025-04-25 04:57 [facility] > 60 ml/min Reported eGFR is based the CKD-EPI 2020 equation that does not use a race coefficient. An eGFR below 60 mL/min/1.73m2 suggests that some kidney damage has occurred, and indicative of chronic kidney disease if persisting greater than 3 months. An eGFR less than 15 is indicative of kidney failure. Creatinine 2025-04-25 04:57 [facility] 0.87 mg/dl (missing) Glucose 2025-04-25 04:[address] [place] [address] 118 mg/dl (missing) Sodium 2025-04-25 04:[address] [place] [address] 128 mmol/l (missing) Blood Urea Nitrogen 2025-04-25 04:[address] [place] [address] 15 mg/dl (missing ) NT-proBNP (BNP-Adult 18+) 2025-04-25 04:57 [facility] 1550 pg/ml The f severianoing cut-points have been suggested for the use [...] exclude HF. BUN Creatinine Ratio 2025-04-25 04:57 [facility] 17.2 (missing) (missing ) Potassium 2025-04-25 04:[address] [place] [address] 3.9 mmol/l (missing) Carbon Dioxide 2025-04-25 04:[address] [place] [address] 32 mm ol/l (missing) Calcium 2025-04-25 04:57 [facility] 8.6 mg/dl (missing) Chloride 2025-04-25 04:57 [facility] 95 mmol/l (missing) Result panel 187 WBC,URINE 2025-05-06 18:[address] [place] [address] >25 /hpf (missing) UROBILINOGEN,URIN E 2025-05-06 18:[address] [place] [address] 0.2 (NORMAL) e.u./dl (missing) SPECIFIC GRAVITY,URINE 2025-05-06 18:[address] [place] [address] 1.010 (missing) (missing) RBC,URINE 2025-05-06 18:[address] [place] [address] 11-25 /hpf (missing) PROTEIN,URINE 2025-05-06 :[address] [place] [address] 30 mg/dl (missing) PH,URINE 2025-05-06 18:[address] [place] [address] 6.0 ph (missing) CLARITY,URINE 2025-05-06 :[address] [place] [address] CLOUDY (missing) (missing) UR CULTURE IF IND 2025-05-06 18:[address] [place] [address] INDICATED (missing) (missing) URINE MICROSCOPIC INDICATED? 2025-05-06 18:[address] [place] [address] INDICATED (missing) (missing) LEUKOCYTE ESTERASE, URINE 2025-05-06 18:[address] [place] [address] LARGE (missing) (missing) OCCULT BLOOD,URINE 2025-05-06 18:[address] [place] [address] MODERATE (missing) (missing) BACTERIA,URINE 2025-05-06 18:[address] [place] [address] Many /hpf (missing) BILIRUBIN,URINE 2025-05-06 18:[address] [place] [address] NEGATIVE (missing) Bilirubin can be influenced by color interference. Please correlate positive results with clinical presentation GLUCOSE, URINE (UA) 2025-05-06 18:[address] [place] [address] NEGATIVE mg/dl (missing) KETONES,URINE (UA) 2025-05-06 18:[address] [place] [address] NEGATIVE mg/dl (missing) NITRITE,URINE 2025-05-06 18:[address] [place] [address] POSITIVE (missing) (missing) SQUAMOUS EPITHELIAL CELL,UR 2025-05-06 18:[address] [place] [address] RARE Squamous (missing) (missing) COLOR,URINE 2025-05-06 18:[address] [place] [address] YELLOW (missing) URINE RANDOM Result panel 188 NUCLEATED RED BLOOD CELLS AUTO 2025-05-06 20:04 [facility] 0.0 /100wbc (missing) EOSINOPHILS # (AUTO) 2025-05-06 20:[address] [place] [address] 0.0 10 3/ul (missing) NRBC ABSOLUTE COUNT (AUTO) 2025-05-06 20:[address] [place] [address] 0.00 x10 3/ul (missing) BASOPHILS # (AUTO) 2025-05-06 20:[address] [place] [address] 0.1 10 3/ul (missing) LYMPHOCYTES # (AUTO) 2025-05-06 20:[address] [place] [address] 0.6 10 3/ul (missing) WBC MORPHOLOGY (MULTIPLE) 2025-05-06 20:[address] [place] [address] 1+ HYPERSEG NEUT (missing) (missing) RBC MORPHOLOGY (MULTIPLE) 2025-05-06 20:[address] [place] [address] 1+ HYPOCHROMASIA (missing) (missing) RBC MORPHOLOGY (MULTIPLE) 2025-05-06 20:[address] [place] [address] 1+ POLYCHROMASIA (missing) (missing) MONOCYTES # (AUTO) 2025-05-06 20:[address] [place] [address] 1.6 10 3/ul (missing) HGB - HEMOGLOBIN 2025-05-06 20:[address] [place] [address] 10.0 g/dl (missing) RED CELL DISTRIBUTION WIDTH 2025-05-06 20:[address] [place] [address] 14.4 % (missing) NEUTROPHILS # (AUTO) 2025-05-06 20:[address] [place] [address] 18.6 10 3/ul (missing) WHITE BLOOD COUNT 2025-05-06 20:[address] [place] [address] 21.1 x10 3/ul (missing) MEAN CORPUSCULAR HEMOGLOBIN 2025-05-06 20:[address] [place] [address] 29.0 pg (missing) RED BLOOD COUNT 2025-05-06 20:[address] [place] [address] 3.45 10 6/ul (missing) HCT - HEMATOCRIT 2025-05-06 20:[address] [place] [address] 30.0 % (missing) MEAN CORPUSCULAR HGB CONC 2025-05-06 20:[address] [place] [address] 33.3 g/dl (missing) PLT - PLATELET COUNT 2025-05-06 20:[address] [place] [address] 374 10 3/ul (missing) MEAN CORPUSCULAR VOLUME 2025-05-06 20:[address] [place] [address] 87.0 fl (missing) MEAN PLATELET VOLUME 2025-05-06 20:[address] [place] [address] 9.2 fl (missing) DIFFERENTIAL COMMENT 2025-05-06 20:[address] [place] [address] MANUAL=AUTO DIFF (missing) MANUAL DIFFERENTIAL AGREES WITH AUTO DIFFERENTIAL PLATELET ESTIMATE, MANUAL 2025-05-06 20:04 [facility] NORMAL (130-450,000) (missing) (missing) PLATELET MORPHOLOGY 2025-05-06 20:04 [facility] NORMAL APPEARANCE (missing) (missing) Result panel 189 WBC,URINE 2025-05-06 20:10 [facility] >25 /hpf (missing) UROBILINOGEN,URINE 2025-05-06 20:10 [facility] 0.2 (NORMAL) e.u./dl (missing) SPECIFIC GRAVITY,URINE 2025-05-06 20:10 [facility] 1.010 (missing ) (missing) PROTEIN,URINE 2025-05-06 20:10 [facility] 30 mg/dl (missing) RBC,URINE 2025-05-06 20:10 [facility] 6-10 /hpf (missing) PH,URINE 2025-05-06 20:[address] [place] [address] 6.5 ph (missing) CLARITY,URINE 2025-05-06 20:10 [facility] CLOUDY (missing ) (missing) COLOR,URINE 2025-05-06 20:10 [facility] DARK YELLOW (missing ) URINE CATHETERIZED UR CULTURE IF IND 2025-05-06 20:10 [facility] INDICATED (missing ) (missing) URINE MICROSCOPIC INDICATED? 2025-05-06 20:10 [facility] INDICATED (missing ) (missing) LEUKOCYTE ESTERASE, URINE 2025-05-06 20:10 [facility] LARGE (missing ) (missing) OCCULT BLOOD,URINE 2025-05-06 20:10 [facility] MODERATE (missing ) (missing) BACTERIA,URINE 2025-05-06 20:10 [facility] Moderate /hpf (missing) BILIRUBIN,URINE 2025-05-06 20:10 [facility] NEGATIVE (missing ) Bilirubin can be influenced by color interference. Please correlate positive results with clinical presentation GLUCOSE, URINE (UA) 2025-05-06 20:10 [facility] NEGATIVE mg/dl (missing) KETONES,URINE (UA) 2025-05-06 20:10 [facility] NEGATIVE mg/dl (missing) SARS-CoV-2 -RESP PCR PANEL 2025-05-06 20:10 [facility] NOT DETECTED (missing ) A negative test result for this test indicates that SARS-CoV-2 RNA was not present in the specimen above the limit of detection. Testing performed on the [place]we RP2.1 Panel, a multiplexed nucleic acid repiratory panel. Negative results do not preclude infection with SARS-CoV-2 virus and should not be the sole basis of a patient management decision. In some patients repeat testing at various time points may be necessary for virus detection. False-negative results may arise from improper sample collection, degradation of viral RNA during shipping or storage, the presence of PCR inhibitors, and/or mutation in the SARS-CoV-2 virus. INFLUENZA A- RESP PCR PANEL 2025-05-06 20:10 [facility] NOT DETECTED (missing ) Influenza A including subtypes H1, H3, and H1-2009 not detected by the Chibwe RP2.1 Panel, a multiplexed nucleic acid test intended for the simultaneous qualitative detection and differentiation of nucleic acids from multiple viral and bacterial respiratory organisms. B. PARAPERTUSSIS- RESP PCR RODRÍGUEZ 2025-05-06 20:10 [facility] NOT DETECTED (missing ) Negative results for this organism do not preclude infection with this organism and may require additional laboratory testing (e.g., bacterial and viral culture, immunofluorescence, and radiography) when evaluating a patient with possible respiratory tract infection. B. PERTUSSIS- RESP PCR PANEL 2025-05-06 20:10 [facility] NOT DETECTED (missing ) Negative results for this organism do not preclude infection with this organism and may require additional laboratory testing (e.g., bacterial and viral culture, immunofluorescence, and radiography) when evaluating a patient with possible respiratory tract infection. C. PNEUMONIAE- RESP PCR PANEL 2025-05-06 20:10 [facility] NOT DETECTED (missing ) Negative results for this organism do not preclude infection with this organism and may require additional laboratory testing (e.g., bacterial and viral culture, immunofluorescence, and radiography) when evaluating a patient with possible respiratory tract infection. M. PNEUMONIAE- RESP PCR PANEL 2025-05-06 20:10 [facility] NOT DETECTED (missing ) Negative results for this organism do not preclude infection with this organism and may require additional laboratory testing (e.g., bacterial and viral culture, immunofluorescence, and radiography) when evaluating a patient with possible respiratory tract infection. CORONAVIRUS 229E-RESP PCR 2025-05-06 20:10 [facility] NOT DETECTED (missing ) Negative results in the setting ofa respiratory illness may be due to infection with pathogens not detected by this test, or lower respiratory tract infection that may not be detected by nasopharyngeal specimen. CORONAVIRUS HKU1-RESP PCR 2025-05-06 20:10 [facility] NOT DETECTED (missing ) Negative results in the setting ofa respiratory illness may be due to infection with pathogens not detected by this test, or lower respiratory tract infection that may not be detected by nasopharyngeal specimen. CORONAVIRUS SF26-YLQF PCR 2025-05-06 20:10 [facility] NOT DETECTED (missing ) Negative results in the setting ofa respiratory illness may be due to infection with pathogens not detected by this test, or lower respiratory tract infection that may not be detected by nasopharyngeal specimen. CORONAVIRUS WG06-HQSP PCR 2025-05-06 20:10 [facility] NOT DETECTED (missing ) Negative results in the setting ofa respiratory illness may be due to infection with pathogens not detected by this test, or lower respiratory tract infection that may not be detected by nasopharyngeal specimen. HUMAN METAPNEUMOVIRUS 2025-05-06 20:10 [facility] NOT DETECTED (missing ) Negative results in the setting ofa respiratory illness may be due to infection with pathogens not detected by this test, or lower respiratory tract infection that may not be detected by nasopharyngeal specimen. INFLUENZA B - RESP PCR PANEL 2025-05-06 20:10 [facility] NOT DETECTED (missing ) Negative results in the setting ofa respiratory illness may be due to infection with pathogens not detected by this test, or lower respiratory tract infection that may not be detected by nasopharyngeal specimen. PARAINFLUENZA VIRUS 1 2025-05-06 20:10 [facility] NOT DETECTED (missing ) Negative results in the setting ofa respiratory illness may be due to infection with pathogens not detected by this test, or lower respiratory tract infection that may not be detected by nasopharyngeal specimen. PARAINFLUENZA VIRUS 2 2025-05-06 20:10 [facility] NOT DETECTED (missing ) Negative results in the setting ofa respiratory illness may be due to infection with pathogens not detected by this test, or lower respiratory tract infection that may not be detected by nasopharyngeal specimen. PARAINFLUENZA VIRUS 3 2025-05-06 20:10 [facility] NOT DETECTED (missing ) Negative results in the setting ofa respiratory illness may be due to infection with pathogens not detected by this test, or lower respiratory tract infection that may not be detected by nasopharyngeal specimen. PARAINFLUENZA VIRUS 4 2025-05-06 20:10 [facility] NOT DETECTED (missing ) Negative results in the setting ofa respiratory illness may be due to infection with pathogens not detected by this test, or lower respiratory tract infection that may not be detected by nasopharyngeal specimen. RHINOVIRUS/ENTEROVI ANTHONY 2025-05-06 20:10 [facility] NOT DETECTED (missing ) Negative results in the setting ofa respiratory illness may be due to infection with pathogens not detected by this test, or lower respiratory tract infection that may not be detected by nasopharyngeal specimen. RSV- RESP PCR PANEL 2025-05-06 20:10 [facility] NOT DETECTED (missing ) Negative results in the setting ofa respiratory illness may be due to infection with pathogens not detected by this test, or lower respiratory tract infection that may not be detected by nasopharyngeal specimen. ADENOVIRUS - RESP PCR PANEL 2025-05-06 20:10 [facility] NOT DETECTED (missing ) UNKNOWN Y NO YES [id number] NO NO YES UNKNOWN Negative results in the setting ofa respiratory illness may be due to infection with pathogens not detected by this test, or lower respiratory tract infection that may not be detected by nasopharyngeal specimen. NITRITE,URINE 2025-05-06 20:10 [facility] POSITIVE (missing ) (missing) WBC CLUMPS,URINE 2025-05-06 20:10 [facility] PRESENT (missing ) (missing) SQUAMOUS EPITHELIAL CELL,UR 2025-05-06 20:10 [facility] RARE Squamous (missing ) (missing) Social History date description facility 2025-04-20 00:00 Ex-smoker (finding) [facility] ital Vital Signs date measurement value units 2025-04-20 [...]
[2025-05-06] MEDS: SODIUM CHLORIDE 0.9% 1,000 ML IV ONE (22:25)
--- NOTE | 2025-05-06 22:25 | XRAY Report ---
PROCEDURE: XR Chest 1V INDICATIONS: fever TECHNIQUE: One view of the chest was acquired. COMPARISON: May 28, 2023 FINDINGS: Surgical changes and devices: None. Lungs and pleura: Diffuse reticulation in a subpleural distribution similar to prior examination allowing for differences in lung volume and positioning. No superimposed consolidation.. Mediastinum: Mediastinal contours appear normal. Heart size is normal. Bones and chest wall: No suspicious bony lesions. Overlying soft tissues appear unremarkable. IMPRESSION: No acute cardiopulmonary process. Chronic fibrotic changes. Reviewed by: Joshua Zhu MD on 05/06/2025 10:22 PM PDT Approved by: Joshua Zhu MD on 05/06/2025 10:22 PM PDT Station ID: [id number]
[2025-05-06] MEDS: ACETAMINOPHEN 325 MG TABLET PO STA (22:29)
--- NOTE | 2025-05-06 22:36 | CONSULTATION NOTE ---
PENDING SALE TO [facility] Active Problems All Active Problems (Updated 05/06/25 @ 22:04 by ) Hyponatremia (Acute) Sepsis (Acute) Urinary tract infection (Acute) Right rib fracture (Acute) Contusion of rib on right side (Acute) Left hip pain (Acute) Back pain (Acute) Pre-op evaluation (Acute) History of abdominal aortic aneurysm (AAA) (Acute) Skin rash (Acute) HTN (hypertension) (Acute) Heart murmur, systolic (Acute) Fracture, intertrochanteric, right femur (Acute) Medical History Medical History (Updated 05/06/25 @ 22:04 by ) HTN (hypertension) Back pain Heart murmur Femur fracture, right Social History Social History If you are a former smoker, when did you quit? (Date/Year): 1975 Number of Years Smoked: 20 How many cigarettes a day do you smoke? (20 cigarettes=1 Pk): 3 Do you dip or chew tobacco?: No Do you vape?: No Patient requests smoking cessation consult: No Initiate information on smoking cessation: No Do you feel safe in your home environment?: Yes History of physical, verbal, emotional, or financial abuse?: No ETOH Use: Frequency: Daily POLST Patient has POLST: No Meds/Allgy Home Medications Ambulatory Orders Medication Instructions Recorded Confirmed metoprolol succinate 25 mg 12.5 mg PO DAILY 07/17/20 1 tablet,extended release 24 hr aspirin 325 mg tablet 325 mg PO DAILYWM 07/21/20 1 omega-3 acid ethyl esters 1 gram 1 g PO DAILY #30 caps 07/21/20 05/06/25 capsule acetaminophen 325 mg tablet 650 mg PO Q8HR PRN Pain 1 to 4 05/06/25 05/06/25 betamethasone dipropionate 0.05 % 1 applic topical BID PRN rash 05/06/25 05/06/25 topical ointment bisacodyl 10 mg rectal suppository 10 mg [place] DAILY PRN constipation 05/06/25 05/06/25 (Laxative (bisacodyl)) cetirizine 10 mg capsule 10 mg PO DAILY PRN allergy s ymptoms 05/06/25 05/06/25 cholecalciferol (vitamin D3) 10 10 mcg PO DAILY 05/06/25 mcg (400 unit) capsule losartan 25 mg tablet 25 mg PO DAILY 05/06/2504/12 mineral oil 118 ml [place] DAILY PRN constipa tion 05/06/25 05/06/25 omeprazole 20 mg capsule,delayed 20 mg PO DAILY 05/06/25 release oxycodone 5 mg tablet 5 mg PO Q4H PRN pain 5 05/06/25 polyethylene glycol 3350 17 17 g PO DAILY PRN constipa tion 05/06/25 05/06/25 gram/dose oral powder (Miralax) sennosides 8.6 mg capsule (senna) 8.6 - 17.2 mg PO CANDIDA LY PRN 05/06/25 05/06/25 constipation tolterodine 4 mg capsule,extended 4 mg PO DAILY 05/06/25 release 24 hr Allergies Allergies Allergy/AdvReac Type Severity Reaction Status Date / Time nickel Allergy Rash Verified 05/06/25 20:01 iodine AdvReac Itching Verified 05/06/25 20:01 latex AdvReac Rash Verified 05/06/25 20:01 Results Lab Results Lab results reviewed: Yes 05/06/25 20:04 05/06/25 21:32 Other Lab Results: Lab Results x24hrs 05/06/25 05/06/25 05/06/25 Range/Units 21:32 20:10 20:04 WBC (4.8-10.8) x10^3/uL RBC (4.20-5.40) 10^6/uL Hgb (12.0-16.0) g/dL Hct (37.0-47.0) % MCV (81.0-99.0) fL MCH (27.0-31.0) pg MCHC (32.0-36.0) g/dL RDW (12.0-15.0) % Plt Count (130-450) 10^3/uL MPV (7.9-10.8) fL Neut # (Auto) (1.5-6.6) 10^3/uL Lymph # (Auto) (1.5-3.5) 10^3/uL Floyd # (Auto) (0.0-1.0) 10^3/uL Eos # (Auto) (0.0-0.7) 10^3/uL Baso # (Auto) (0.0-0.1) 10^3/uL Absolute Nucleated RBC x10^3/uL Band Neuts % (Manual) Abnorm Lymph % (Manual) Nucleated RBC % /100WBC Neutrophils # (Manual) Lymphocytes # (Manual) Monocytes # (Manual) Eosinophils # (Manual) Basophils # (Manual) Differential Comment WBC Morphology (NORMAL) Platelet Estimate (NORMAL) Platelet Morphology (NORMAL) RBC Morph Micro Appear 1+ POLYCHROMASIA (NORMAL) Sodium 122 L (135-145) mmol/L Potassium 5.1 H (3.5-4.5) mmol/L Chloride 90 L (101-111) mmol/L Carbon Dioxide 25 (21-32) mmol/L Anion Gap 7.0 (6-13) BUN 24 H (6-20) mg/dL Creatinine 1.1 (0.6-1.3) mg/dL Estimated GFR (MDRD) 47 L (>89) Glucose 116 H (74-104) mg/dL Lactic Acid 1.6 (0.5-2.2) mmol/L Calcium 8.7 (8.5-10.3) mg/dL Total Bilirubin 1.5 H (0.2-1.0) mg/dL AST 101 H (10-42) IU/L ALT 181 H (10-60) IU/L Alkaline Phosphatase 407 H (42-121) IU/L Total Protein 7.0 (6.4-8.9) g/dL Albumin 3.4 (3.2-5.5) g/dL Globulin 3.6 (2.1-4.2) g/dL Albumin/Globulin Ratio 0.9 L (1.0-2.2) Urine Color DARK YELLOW Urine Clarity CLOUDY (CLEAR) Urine pH 6.5 (5.0-7.5) PH Ur Specific [place] 1.010 (1.002-1.030) Urine Protein 30 H (NEGATIVE) mg/dL Urine Glucose (UA) NEGATIVE (NEGATIVE) mg/dL Urine Ketones NEGATIVE (NEGATIVE) mg/dL Urine Occult Blood MODERATE (NEGATIVE) Urine Nitrite POSITIVE H (NEGATIVE) Urine Bilirubin NEGATIVE (NEGATIVE) Urine Urobilinogen 0.2 (NORMAL) (NORMAL) E.U./dL Ur Leukocyte Esterase LARGE H (NEGATIVE) Urine RBC 6-10 H (0-5) /HPF Urine WBC >25 H (0-5) /HPF Urine WBC Clumps PRESENT Ur Squamous Epith Cells RARE Squamous (<= Few) Urine Bacteria Moderate H (None Seen) /HPF Ur Microscopic Review INDICATED Urine Culture Comments INDICATED Nasal Adenovirus (PCR) NOT DETECTED Nasal B. parapertussis DNA (PCR) NOT DETECTED Nasal Coronavir 229E PCR NOT DETECTED Nasal Coronavir HKU1 PCR NOT DETECTED Nasal Coronavir NL63 PCR NOT DETECTED Nasal Coronavir OC43 PCR NOT DETECTED Nasal Enterovir/Rhinovir PCR NOT DETECTED Nasal Influenza B PCR NOT DETECTED Nasal Influenza A PCR NOT DETECTED Nasal Parainfluen 1 PCR NOT DETECTED Nasal Parainfluen 2 PCR NOT DETECTED Nasal Parainfluen 3 PCR NOT DETECTED Nasal Parainfluen 4 PCR NOT DETECTED Nasal RSV (PCR) NOT DETECTED Nasal B.pertussis DNA PCR NOT DETECTED Nasal C.pneumoniae (PCR) NOT DETECTED Rai Human Metapneumo PCR NOT DETECTED Nasal M.pneumoniae (PCR) NOT DETECTED Nasal SARS-CoV-2 (PCR) NOT DETECTED 05/06/25 Range/Units 20:04 WBC 21.1 H (4.8-10.8) x10^3/uL RBC 3.45 L (4.20-5.40) 10^6/uL Hgb 10.0 L (12.0-16.0) g/dL Hct 30.0 L (37.0-47.0) % MCV 87.0 (81.0-99.0) fL MCH 29.0 (27.0-31.0) pg MCHC 33.3 (32.0-36.0) g/dL RDW 14.4 (12.0-15.0) % Plt Count 374 (130-450) 10^3/uL MPV 9.2 (7.9-10.8) fL Neut # (Auto) 18.6 H (1.5-6.6) 10^3/uL Lymph # (Auto) 0.6 L (1.5-3.5) 10^3/uL Floyd # (Auto) 1.6 H (0.0-1.0) 10^3/uL Eos # (Auto) 0.0 (0.0-0.7) 10^3/uL Baso # (Auto) 0.1 (0.0-0.1) 10^3/uL Absolute Nucleated RBC 0.00 x10^3/uL Band Neuts % (Manual) Not Reportable Abnorm Lymph % (Manual) Not Reportable Nucleated RBC % 0.0 /100WBC Neutrophils # (Manual) Not Reportable Lymphocytes # (Manual) Not Reportable Monocytes # (Manual) Not Reportable Eosinophils # (Manual) Not Reportable Basophils # (Manual) Not Reportable Differential Comment MANUAL=AUTO DIFF WBC Morphology 1+ HYPERSEG NEUT (NORMAL) Platelet Estimate NORMAL (130-450,000) (NORMAL) Platelet Morphology NORMAL APPEARANCE (NORMAL) RBC Morph Micro Appear 1+ HYPOCHROMASIA (NORMAL) Sodium (135-145) mmol/L Potassium (3.5-4.5) mmol/L Chloride (101-111) mmol/L Carbon Dioxide (21-32) mmol/L Anion Gap (6-13) BUN (6-20) mg/dL Creatinine (0.6-1.3) mg/dL Estimated GFR (MDRD) (>89) Glucose (74-104) mg/dL Lactic Acid (0.5-2.2) mmol/L Calcium (8.5-10.3) mg/dL Total Bilirubin (0.2-1.0) mg/dL AST (10-42) IU/L ALT (10-60) IU/L Alkaline Phosphatase (42-121) IU/L Total Protein (6.4-8.9) g/dL Albumin (3.2-5.5) g/dL Globulin (2.1-4.2) g/dL Albumin/Globulin Ratio (1.0-2.2) Urine Color Urine Clarity (CLEAR) Urine pH (5.0-7.5) PH Ur Specific [place] (1.002-1.030) Urine Protein (NEGATIVE) mg/dL Urine Glucose (UA) (NEGATIVE) mg/dL Urine Ketones (NEGATIVE) mg/dL Urine Occult Blood (NEGATIVE) Urine Nitrite (NEGATIVE) Urine Bilirubin (NEGATIVE) Urine Urobilinogen (NORMAL) E.U./dL Ur Leukocyte Esterase (NEGATIVE) Urine RBC (0-5) /HPF Urine WBC (0-5) /HPF Urine WBC Clumps Ur Squamous Epith Cells (<= Few) Urine Bacteria (None Seen) /HPF Ur Microscopic Review Urine Culture Comments Nasal Adenovirus (PCR) Nasal B. parapertussis DNA (PCR) Nasal Coronavir 229E PCR Nasal Coronavir HKU1 PCR Nasal Coronavir NL63 PCR Nasal Coronavir OC43 PCR Nasal Enterovir/Rhinovir PCR Nasal Influenza B PCR Nasal Influenza A PCR Nasal Parainfluen 1 PCR Nasal Parainfluen 2 PCR Nasal Parainfluen 3 PCR Nasal Parainfluen 4 PCR Nasal RSV (PCR) Nasal B.pertussis DNA PCR Nasal C.pneumoniae (PCR) Rai Human Metapneumo PCR Nasal M.pneumoniae (PCR) Nasal SARS-CoV-2 (PCR) Exam Exam Vital Signs: Vital Signs x48h Temp Pulse Resp BP Pulse Ox 05/06/25 22:00 37.1 C 104 H 22 149/61 H 92 05/06/25 20:05 38.2 C H 104 H 16 91 L 05/06/25 19:48 36.5 C 105 H 16 134/67 H 91 L Conclusion/Plan Problem List (1) Sepsis: Qualifiers: Sepsis acute organ dysfunction status: with acute organ dysfunction S epsis type: sepsis due to unspecified organism Severe sepsis acute organ dysfunction type: encephalopathy Severe sepsis shock status: without septic shock Qualified Code(s): A41.9 - Sepsis, unspecified organism; R65.20 - Severe sepsis without septic shock; G93.41 - Metabolic encephalopathy (2) Hyponatremia: (3) Urinary tract infection: Qualifiers: Urinary tract infection type: acute pyelonephritis Qualified Code(s): N 10 - Acute pyelonephritis (4) HTN (hypertension): Lab Results Lab results reviewed: Yes 05/06/25 20:04 05/06/25 21:32
--- NOTE | 2025-05-06 22:38 | CT Report ---
PROCEDURE: CT Abdomen/Pelvis WO INDICATIONS: Sepsis, UTI, rule out obstruction TECHNIQUE: A CT scan of the abdomen and pelvis was performed without the use of intravenous contrast. Images were recorded and evaluated at appropriate window settings. Reformats: coronal and sagittal. For radiation dose reduction, the following was used: automated exposure control, adjustment of mA and/or kV according to patient size. COMPARISON: Plain films May 30, 2024. Chest plain films May 28, 2023. FINDINGS: Image quality: Diagnostic. Lower chest: Severe fibrotic changes at the lung bases. Coronary calcifications. Large hiatal hernia. Liver: Normal size. Presumed hepatic cyst in the gallbladder fossa. Gallbladder: No radiopaque stones or wall thickening. Biliary tree: No intrahepatic or extrahepatic dilation, accounting for age. Spleen: No splenomegaly. Pancreas: No pancreatic ductal dilation. Adrenals: No adrenal nodule. Kidneys and ureters: No hydronephrosis. No contour-deforming mass. Stomach and bowel: No gastric or small bowel dilation. No abnormal wall thickening. Diverticulosis without evidence of diverticulitis. Appendix: Not identified. Peritoneum: No pathologic free fluid. Lymph nodes: No central or retroperitoneal adenopathy. Vessels: Abdominal aortic aneurysm status post aortobiiliac stent grafting. Excluded aneurysm sac measures 6.1 x 5.6 cm in dimension. No comparison available. Reproductive organs: Unremarkable. Bladder: Decompressed by Sanabria catheter. Pelvic lymph nodes: No adenopathy by size criteria. Bones: Comminuted fracture of the left femur intertrochanteric region status post intramedullary nail fixation with incomplete fracture healing. 2.4 x 2.1 cm fluid collection in the subcutaneous space along the surgical tract on the left. T11 compression fracture with approximately 50% vertebral body height loss. Chronic healed fracture of right femur status post internal fixation. Other: Abdominal wall is intact. IMPRESSION: Age-indeterminate T11 compression fracture new from prior imaging in 2022. No definite source of infection. There is a 2 cm fluid collection along the surgical tract of the left femur but this could be a small hematoma or seroma rather than abscess. Large excluded aneurysm sac. Correlation with prior imaging recommended to determine stability. Reviewed by: Joshua Zhu MD on 05/06/2025 10:34 PM PDT Approved by: Joshua Zhu MD on 05/06/2025 10:34 PM PDT Station ID: [id number]
[2025-05-06] MEDS ORDERED: ONDANSETRON 4 MG/2 ML VIAL IVP PRN (23:22)
[2025-05-06] MEDS ORDERED: ONDANSETRON ODT 4 MG TABLET TL PRN (23:22)
[2025-05-06] MEDS: SODIUM CHLORIDE 0.9% 1,000 ML IV SCH (23:30)
[2025-05-07] MEDS: SODIUM CHLORIDE FLUSH 0.9% 10 ML SYRINGE IVP SCH (01:02)
[2025-05-07 04:24] LABS: HCT - HEMATOCRIT 30.2 % (37.0-47.0); HGB - HEMOGLOBIN 9.1 g/dL (12.0-16.0); MEAN PLATELET VOLUME 8.8 fL (7.9-10.8); NRBC ABSOLUTE COUNT (AUTO) 0.00 x10^3/uL; NUCLEATED RED BLOOD CELLS AUTO 0.0 /100WBC; PLT - PLATELET COUNT 365 10^3/uL (130-450); RED CELL DISTRIBUTION WIDTH 14.4 % (12.0-15.0)
[2025-05-07 04:42] LABS: BUN - BLOOD UREA NITROGEN 20.0 mg/dL (6-20); CARBON DIOXIDE - CO2 24.0 mmol/L (21-32); CREATININE 0.9 mg/dL (0.6-1.3); GFR - MDRD 59.0 (>89)
[2025-05-07 04:58] LABS: PLATELET ESTIMATE, MANUAL NORMAL (130-450,000) (NORMAL); PLATELET MORPHOLOGY NORMAL APPEARANCE (NORMAL); RBC MORPHOLOGY (MULTIPLE) NORMAL APPEARANCE (NORMAL); WBC MORPHOLOGY (MULTIPLE) NORMAL APPEARANCE (NORMAL)
[2025-05-07] MEDS: CEFEPIME 2 GM VIAL IVP SCH (10:09)
[2025-05-07] MEDS: ENOXAPARIN 40 MG/0.4 ML SYRINGE SUBQ SCH (10:09)
--- NOTE | 2025-05-07 12:58 | PROVIDER PROGRESS NOTE ---
Subjective Prog Note Date Prog Note Date: 05/07/25 Subjective Pt reports feeling: No change Current Medications Current Medications Current Medications: Current Medications Generic Name Dose Route Start Last Admin Trade Name Freq PRN Reason Stop Dose Admin Acetaminophen 650 mg 05/06/25 23:22 Acetaminophen 325 Mg Tablet PO Q4HR PRN Pain 1 to 4, or Fever Cefepime HCl 2 gm 05/07/25 09:00 05/07/25 10:09 Cefepime 2 Gm Vial IVP 2 gm BID NELY Administration Enoxaparin Sodium 40 mg 05/07/25 09:00 05/07/25 10:09 Enoxaparin 40 Mg/0.4 Ml Syringe SUBQ 40 mg DAILY NELY Administration Losartan Potassium 25 mg 05/08/25 09:00 Losartan 50 Mg Tablet PO DAILY NELY Metoprolol Succinate 12.5 mg 05/08/25 09:00 Metoprolol Succinate 25 Mg Tablet PO DAILY NELY Non-Formulary Medication 10 mcg 05/08/25 09:00 Cholecalciferol (Vitamin D3) PO DAILY NELY Non-Formulary Medication 20 mg 05/08/25 09:00 Omeprazole PO DAILY [facility] Non-Formulary Medication 4 mg 05/08/25 09:00 Tolterodine PO DAILY NELY Ondansetron HCl 4 mg 05/06/25 23:22 Ondansetron Odt 4 Mg Tablet TL Q6HR PRN Nausea / Vomiting Ondansetron HCl 4 mg 05/06/25 23:22 Ondansetron 4 Mg/2 Ml Vial IVP Q6HR PRN Nausea / Vomiting Sodium Chloride 10 ml 05/06/25 23:22 Sodium Chloride Flush 0.9% 10 Ml Syringe IVP PRN PRN NEEDED PER PROVIDER ORDERS Sodium Chloride 10 ml 05/07/25 01:00 05/07/25 10:09 Sodium Chloride Flush 0.9% 10 Ml Syringe IVP 10 ml 0100,0900,1700 NELY Administration Objective Vital Signs/Intake & Output Reviewed Vital Signs: Yes Vital Signs: Vital Signs x48h Temp Pulse Resp BP Pulse Ox O2 Flow Rate 05/07/25 11:43 99.1 F 98 20 111/53 L 94 05/07/25 10:21 93 20 91 L 05/07/25 08:14 99.0 F 83 22 141/70 H 99 05/07/25 06:13 98.4 F 76 20 132/55 H 97 3 Intake & Output: Intake & Output 05/04/25 05/05/25 05/06/25 05/07/25 23:59 23:59 23:59 23:59 Intake Total 1999 578 / 578 Output Total 3428 / 3428 1700 / 1700 Balance -1428 / -1428 -1122 / -1122 Weight (kg) 126 lb 12.253 oz 121 lb 4.068 oz Objective General Appearance: positive No acute distress, Alert and Other (Elderly female) Eyes Bilateral: positive Normal inspection Respiratory: positive Chest non-tender and No respiratory distress Cardiovascular: positive Regular rate & rhythm Abdomen: positive Non-tender Skin: positive Color nml Extremities: positive Non-tender Neurologic/Psychiatric: positive Oriented x3 Lab Results 05/07/25 03:59 05/07/25 11:49 Other Labs: Lab Results x24hrs 05/07/25 05/07/25 05/07/25 Range/Units 11:49 07:49 03:59 WBC 24.2 H (4.8-10.8) x10^3/uL RBC 3.30 L (4.20-5.40) 10^6/uL Hgb 9.1 L (12.0-16.0) g/dL Hct 30.2 L (37.0-47.0) % MCV 91.5 (81.0-99.0) fL MCH 27.6 (27.0-31.0) pg MCHC 30.1 L (32.0-36.0) g/dL RDW 14.4 (12.0-15.0) % Plt Count 365 (130-450) 10^3/uL MPV 8.8 (7.9-10.8) fL Neut # (Auto) 21.0 H (1.5-6.6) 10^3/uL Lymph # (Auto) 0.8 L (1.5-3.5) 10^3/uL [place] # (Auto) 1.9 H (0.0-1.0) 10^3/uL Eos # (Auto) 0.1 (0.0-0.7) 10^3/uL Baso # (Auto) 0.1 (0.0-0.1) 10^3/uL Absolute Nucleated RBC 0.00 x10^3/uL Band Neuts % (Manual) Not Reportable Abnorm Lymph % (Manual) Not Reportable Nucleated RBC % 0.0 /100WBC Neutrophils # (Manual) Not Reportable Lymphocytes # (Manual) Not Reportable Monocytes # (Manual) Not Reportable Eosinophils # (Manual) Not Reportable Basophils # (Manual) Not Reportable Differential Comment MANUAL=AUTO DIFF WBC Morphology NORMAL APPEARANCE (NORMAL) Platelet Estimate NORMAL (130-450,000) (NORMAL) Platelet Morphology NORMAL APPEARANCE (NORMAL) RBC Morph Micro Appear NORMAL APPEARANCE (NORMAL) Sodium 130 L 132 L 130 L (135-145) mmol/L Potassium 4.3 (3.5-4.5) mmol/L Chloride 100 L (101-111) mmol/L Carbon Dioxide 24 (21-32) mmol/L Anion Gap 6.0 (6-13) BUN 20 (6-20) mg/dL Creatinine 0.9 (0.6-1.3) mg/dL Estimated GFR (MDRD) 59 L (>89) Glucose 121 H (74-104) mg/dL Lactic Acid (0.5-2.2) mmol/L Calcium 7.9 L (8.5-10.3) mg/dL Total Bilirubin (0.2-1.0) mg/dL AST (10-42) IU/L ALT (10-60) IU/L Alkaline Phosphatase (42-121) IU/L Total Protein (6.4-8.9) g/dL Albumin (3.2-5.5) g/dL Globulin (2.1-4.2) g/dL Albumin/Globulin Ratio (1.0-2.2) Urine Color Urine Clarity (CLEAR) Urine pH (5.0-7.5) PH Ur Specific [place] (1.002-1.030) Urine Protein (NEGATIVE) mg/dL Urine Glucose (UA) (NEGATIVE) mg/dL Urine Ketones (NEGATIVE) mg/dL Urine Occult Blood (NEGATIVE) Urine Nitrite (NEGATIVE) Urine Bilirubin (NEGATIVE) Urine Urobilinogen (NORMAL) E.U./dL Ur Leukocyte Esterase (NEGATIVE) Urine RBC (0-5) /HPF Urine WBC (0-5) /HPF Urine WBC Clumps Ur Squamous Epith Cells (<= Few) Urine Bacteria (None Seen) /HPF Ur Microscopic Review Urine Culture Comments Nasal Adenovirus (PCR) Nasal B. parapertussis DNA (PCR) Nasal Coronavir 229E PCR Nasal Coronavir HKU1 PCR Nasal Coronavir NL63 PCR Nasal Coronavir OC43 PCR Nasal Enterovir/Rhinovir PCR Nasal Influenza B PCR Nasal Influenza A PCR Nasal Parainfluen 1 PCR Nasal Parainfluen 2 PCR Nasal Parainfluen 3 PCR Nasal Parainfluen 4 PCR Nasal RSV (PCR) Nasal B.pertussis DNA PCR Nasal C.pneumoniae (PCR) Rai Human Metapneumo PCR Nasal M.pneumoniae (PCR) Nasal SARS-CoV-2 (PCR) 05/06/25 05/06/25 05/06/25 Range/Units 23:54 21:32 20:10 WBC (4.8-10.8) x10^3/uL RBC (4.20-5.40) 10^6/uL Hgb (12.0-16.0) g/dL Hct (37.0-47.0) % MCV (81.0-99.0) fL MCH (27.0-31.0) pg MCHC (32.0-36.0) g/dL RDW (12.0-15.0) % Plt Count (130-450) 10^3/uL MPV (7.9-10.8) fL Neut # (Auto) (1.5-6.6) 10^3/uL Lymph # (Auto) (1.5-3.5) 10^3/uL [place] # (Auto) (0.0-1.0) 10^3/uL Eos # (Auto) (0.0-0.7) 10^3/uL Baso # (Auto) (0.0-0.1) 10^3/uL Absolute Nucleated RBC x10^3/uL Band Neuts % (Manual) Abnorm Lymph % (Manual) Nucleated RBC % /100WBC Neutrophils # (Manual) Lymphocytes # (Manual) Monocytes # (Manual) Eosinophils # (Manual) Basophils # (Manual) Differential Comment WBC Morphology (NORMAL) Platelet Estimate (NORMAL) Platelet Morphology (NORMAL) RBC Morph Micro Appear (NORMAL) Sodium 126 L 122 L (135-145) mmol/L Potassium 5.1 H (3.5-4.5) mmol/L Chloride 90 L (101-111) mmol/L Carbon Dioxide 25 (21-32) mmol/L Anion Gap 7.0 (6-13) BUN 24 H (6-20) mg/dL Creatinine 1.1 (0.6-1.3) mg/dL Estimated GFR (MDRD) 47 L (>89) Glucose 116 H (74-104) mg/dL Lactic Acid 1.6 (0.5-2.2) mmol/L Calcium 8.7 (8.5-10.3) mg/dL Total Bilirubin 1.5 H (0.2-1.0) mg/dL AST 101 H (10-42) IU/L ALT 181 H (10-60) IU/L Alkaline Phosphatase 407 H (42-121) IU/L Total Protein 7.0 (6.4-8.9) g/dL Albumin 3.4 (3.2-5.5) g/dL Globulin 3.6 (2.1-4.2) g/dL Albumin/Globulin Ratio 0.9 L (1.0-2.2) Urine Color DARK YELLOW Urine Clarity CLOUDY (CLEAR) Urine pH 6.5 (5.0-7.5) PH Ur Specific [place] 1.010 (1.002-1.030) Urine Protein 30 H (NEGATIVE) mg/dL Urine Glucose (UA) NEGATIVE (NEGATIVE) mg/dL Urine Ketones NEGATIVE (NEGATIVE) mg/dL Urine Occult Blood MODERATE (NEGATIVE) Urine Nitrite POSITIVE H (NEGATIVE) Urine Bilirubin NEGATIVE (NEGATIVE) Urine Urobilinogen 0.2 (NORMAL) (NORMAL) E.U./dL Ur Leukocyte Esterase LARGE H (NEGATIVE) Urine RBC 6-10 H (0-5) /HPF Urine WBC >25 H (0-5) /HPF Urine WBC Clumps PRESENT Ur Squamous Epith Cells RARE Squamous (<= Few) Urine Bacteria Moderate H (None Seen) /HPF Ur Microscopic Review INDICATED Urine Culture Comments INDICATED Nasal Adenovirus (PCR) NOT DETECTED Nasal B. parapertussis DNA (PCR) NOT DETECTED Nasal Coronavir 229E PCR NOT DETECTED Nasal Coronavir HKU1 PCR NOT DETECTED Nasal Coronavir NL63 PCR NOT DETECTED Nasal Coronavir OC43 PCR NOT DETECTED Nasal Enterovir/Rhinovir PCR NOT DETECTED Nasal Influenza B PCR NOT DETECTED Nasal Influenza A PCR NOT DETECTED Nasal Parainfluen 1 PCR NOT DETECTED Nasal Parainfluen 2 PCR NOT DETECTED Nasal Parainfluen 3 PCR NOT DETECTED Nasal Parainfluen 4 PCR NOT DETECTED Nasal RSV (PCR) NOT DETECTED Nasal B.pertussis DNA PCR NOT DETECTED Nasal C.pneumoniae (PCR) NOT DETECTED Rai Human Metapneumo PCR NOT DETECTED Nasal M.pneumoniae (PCR) NOT DETECTED Nasal SARS-CoV-2 (PCR) NOT DETECTED 05/06/25 05/06/25 Range/Units 20:04 20:04 WBC 21.1 H (4.8-10.8) x10^3/uL RBC 3.45 L (4.20-5.40) 10^6/uL Hgb 10.0 L (12.0-16.0) g/dL Hct 30.0 L (37.0-47.0) % MCV 87.0 (81.0-99.0) fL MCH 29.0 (27.0-31.0) pg MCHC 33.3 (32.0-36.0) g/dL RDW 14.4 (12.0-15.0) % Plt Count 374 (130-450) 10^3/uL MPV 9.2 (7.9-10.8) fL Neut # (Auto) 18.6 H (1.5-6.6) 10^3/uL Lymph # (Auto) 0.6 L (1.5-3.5) 10^3/uL [place] # (Auto) 1.6 H (0.0-1.0) 10^3/uL Eos # (Auto) 0.0 (0.0-0.7) 10^3/uL Baso # (Auto) 0.1 (0.0-0.1) 10^3/uL Absolute Nucleated RBC 0.00 x10^3/uL Band Neuts % (Manual) Not Reportable Abnorm Lymph % (Manual) Not Reportable Nucleated RBC % 0.0 /100WBC Neutrophils # (Manual) Not Reportable Lymphocytes # (Manual) Not Reportable Monocytes # (Manual) Not Reportable Eosinophils # (Manual) Not Reportable Basophils # (Manual) Not Reportable Differential Comment MANUAL=AUTO DIFF WBC Morphology 1+ HYPERSEG NEUT (NORMAL) Platelet Estimate NORMAL (130-450,000) (NORMAL) Platelet Morphology NORMAL APPEARANCE (NORMAL) RBC Morph Micro Appear 1+ POLYCHROMASIA 1+ HYPOCHROMASIA (NORMAL) Sodium (135-145) mmol/L Potassium (3.5-4.5) mmol/L Chloride (101-111) mmol/L Carbon Dioxide (21-32) mmol/L Anion Gap (6-13) BUN (6-20) mg/dL Creatinine (0.6-1.3) mg/dL Estimated GFR (MDRD) (>89) Glucose (74-104) mg/dL Lactic Acid (0.5-2.2) mmol/L Calcium (8.5-10.3) mg/dL Total Bilirubin (0.2-1.0) mg/dL AST (10-42) IU/L ALT (10-60) IU/L Alkaline Phosphatase (42-121) IU/L Total Protein (6.4-8.9) g/dL Albumin (3.2-5.5) g/dL Globulin (2.1-4.2) g/dL Albumin/Globulin Ratio (1.0-2.2) Urine Color Urine Clarity (CLEAR) Urine pH (5.0-7.5) PH Ur Specific [place] (1.002-1.030) Urine Protein (NEGATIVE) mg/dL Urine Glucose (UA) (NEGATIVE) mg/dL Urine Ketones (NEGATIVE) mg/dL Urine Occult Blood (NEGATIVE) Urine Nitrite (NEGATIVE) Urine Bilirubin (NEGATIVE) Urine Urobilinogen (NORMAL) E.U./dL Ur Leukocyte Esterase (NEGATIVE) Urine RBC (0-5) /HPF Urine WBC (0-5) /HPF Urine WBC Clumps Ur Squamous Epith Cells (<= Few) Urine Bacteria (None Seen) /HPF Ur Microscopic Review Urine Culture Comments Nasal Adenovirus (PCR) Nasal B. parapertussis DNA (PCR) Nasal Coronavir 229E PCR Nasal Coronavir HKU1 PCR Nasal Coronavir NL63 PCR Nasal Coronavir OC43 PCR Nasal Enterovir/Rhinovir PCR Nasal Influenza B PCR Nasal Influenza A PCR Nasal Parainfluen 1 PCR Nasal Parainfluen 2 PCR Nasal Parainfluen 3 PCR Nasal Parainfluen 4 PCR Nasal RSV (PCR) Nasal B.pertussis DNA PCR Nasal C.pneumoniae (PCR) Rai Human Metapneumo PCR Nasal M.pneumoniae (PCR) Nasal SARS-CoV-2 (PCR) Assessment/Plan Problem List (1) Sepsis: Impression: Met SIRS criteria with fever, elevated heart rate, elevated WBC Received 2 L fluid resuscitation Continue NS at 100 Source is UTI, manage as below Blood, urine cultures pending Qualifiers: Sepsis acute organ dysfunction status: with acute organ dysfunction S epsis type: sepsis due to unspecified organism Severe sepsis acute organ dysfunction type: encephalopathy Severe sepsis shock status: without septic shock Qualified Code(s): A41.9 - Sepsis, unspecified organism; R65.20 - Severe sepsis without septic shock; G93.41 - Metabolic encephalopathy (2) Urinary tract infection: Impression: UA positive Cultures pending History of Pseudomonas, treating with cefepime 2 g twice daily Qualifiers: Urinary tract infection type: acute pyelonephritis Qualified Code(s): N 10 - Acute pyelonephritis (3) Hyponatremia: Impression: Repleted and resolved. Daily BMP (4) HTN (hypertension): Impression: Restart home metoprolol and losartan tomorrow
--- NOTE | 2025-05-07 13:35 | PHARMACY PROGRESS NOTE ---
Best Possible Medication History Admit Date and Time: 05/06/25 [id number] Home Medications Medication Instructions Recorded Confirmed Type metoprolol succinate 25 mg 12.5 mg PO DAILY 07/17/20 1 History tablet,extended release 24 hr aspirin 325 mg tablet 325 mg PO DAILYWM 07/21/20 1 Rx omega-3 acid ethyl esters 1 gram 1 g PO DAILY #30 caps 07/21/20 05/06/25 Rx capsule betamethasone dipropionate 0.05 % 1 applic topical Q12 H PRN rash 05/06/25 05/07/25 History topical ointment bisacodyl 10 mg rectal suppository 10 mg DC DAILY PRN constipation 05/06/25 05/07/25 History (Laxative (bisacodyl)) cetirizine 10 mg capsule 10 mg PO DAILY PRN allergy s ymptoms 05/06/25 05/07/25 History losartan 25 mg tablet 25 mg PO DAILY 05/06/2504/12 History mineral oil 118 ml DC DAILY PRN constipa tion 05/06/25 05/07/25 History omeprazole 20 mg capsule,delayed 20 mg PO DAILY 05/06/25 History release oxycodone 5 mg tablet 5 mg PO Q4H PRN pain 5 05/06/25 History polyethylene glycol 3350 17 17 g PO DAILY PRN constipa tion 05/06/25 05/07/25 History gram/dose oral powder (Miralax) sennosides 8.6 mg capsule (senna) 8.6 mg PO DAILY cons tipation 05/06/25 05/07/25 History tolterodine 4 mg capsule,extended 4 mg PO DAILY 05/06/25 History release 24 hr acetaminophen 650 mg 650 mg PO Q8H PRN pain 05/0705/07/25 History tablet,extended release (8HR Muscle Aches-Pain) cholecalciferol (vitamin D3) 10 10 mcg PO DAILY 05/07/25 History mcg (400 unit) tablet methocarbamol 500 mg tablet 500 mg PO TID 05/07/25 History naloxone 4 mg/actuation nasal 1 spray intranasal PRN P RN opioid 05/07/25 05/07/25 History spray (Narcan) overdose sennosides 8.6 mg tablet (senna) 17.2 mg PO DAILY PRN constipation 05/07/25 05/07/25 History Processed by: Pharmacy (Medication reconciliation completed by [employer] Consultant, Luciana) Medications reviewed in ED?: No Medication History completed: Yes Patient Interview: Pt unable to participate Secondary Source(s): Facility MAR as ONLY source (From [facility]) [facility] Statement: As the person ultimately responsible for medication therapy, providers are able to order a medication from an existing home medication list in [facility] via the "Reconcile Routine" prior to Confirmation of that medication by director of sales support. Such practice is discouraged except when the physician, in their clinical judgment, deems that a medical need exists for a medication without regard to previous use.
[2025-05-07] MEDS: ACETAMINOPHEN 500 MG TABLET PO SCH (15:00)
[2025-05-08] MEDS ORDERED: CALAMINE/ZINC OXIDE 177 ML BOTTLE TOP PRN (02:18)
[2025-05-08] MEDS ORDERED: PETROLATUM WHITE 5 GM PACKET TOP PRN (02:18)
[2025-05-08] MEDS ORDERED: COD LIVER OIL/ZINC OXIDE 113 GM TUBE TOP PRN (02:18)
[2025-05-08] MEDS ORDERED: MIN OIL/DIMETHICON/COCONUT OIL 92 GM TUBE TOP PRN (02:18)
--- NOTE | 2025-05-08 02:20 | PROVIDER PROGRESS NOTE ---
Gate Watchman Note Gate Watchman Note Gate Watchman Note: per rn "Patient has pink/red itchy raised rash/hives to upper back, bilateral hip, and l armpit/posterior neck areas. Itching and getting worse per patient. Does not feel Short of breath or wheezy. Vitals WNL. Started IV Cefepime 05/07/25 AM, having a total of 3 doses so far. No hx of allergies to antibiotics given in the past. Patient was lethargic and tired all day so she is unsure when rash/itching started. Just noticed itching now that she is awake. She would like to have benadryl PO and a topical creamif possible." benadryl x 1 calamine lotion and anti-itch creams ordered pepcid x 1
[2025-05-08] MEDS: FAMOTIDINE 20 MG/2 ML VIAL IVP STA (02:43)
[2025-05-08 04:44] LABS: HCT - HEMATOCRIT 28.6 % (37.0-47.0); HGB - HEMOGLOBIN 8.8 g/dL (12.0-16.0); MEAN PLATELET VOLUME 8.7 fL (7.9-10.8); NRBC ABSOLUTE COUNT (AUTO) 0.00 x10^3/uL; NUCLEATED RED BLOOD CELLS AUTO 0.0 /100WBC; PLT - PLATELET COUNT 383 10^3/uL (130-450); RED CELL DISTRIBUTION WIDTH 14.5 % (12.0-15.0)
[2025-05-08 05:01] LABS: BUN - BLOOD UREA NITROGEN 23.0 mg/dL (6-20); CARBON DIOXIDE - CO2 25.0 mmol/L (21-32); CREATININE 0.7 mg/dL (0.6-1.3); GFR - MDRD 79.0 (>89)
[2025-05-08] MEDS: PANTOPRAZOLE 40 MG TABLET PO SCH (06:38)
[2025-05-08] MEDS: SOLIFENACIN SUCCINATE 5 MG TABLET PO SCH (09:49)
[2025-05-08] MEDS: CHOLECALCIFEROL 400 UNIT TABLET PO SCH (09:49)
[2025-05-08] MEDS: METOPROLOL SUCCINATE 25 MG TABLET PO SCH (09:52)
[2025-05-08] MEDS: LOSARTAN 50 MG TABLET PO SCH (09:52)
[2025-05-08] MEDS: POTASSIUM CHLORIDE 20 MEQ TABLET PO ONE (12:25)
[2025-05-08] MEDS: LACTATED RINGERS 1,000 ML IV ONE (12:26)
--- NOTE | 2025-05-08 14:03 | PROVIDER PROGRESS NOTE ---
Subjective Prog Note Date Prog Note Date: 05/08/25 Subjective Pt reports feeling: No change Current Medications Current Medications Current Medications: Current Medications Generic Name Dose Route Start Last Admin Trade Name Freq PRN Reason Stop Dose Admin Acetaminophen 650 mg 05/06/25 23:22 Acetaminophen 325 Mg Tablet PO Q4HR PRN Pain 1 to 4, or Fever Acetaminophen 1,000 mg 05/07/25 14:00 05/08/25 06:38 Acetaminophen 500 Mg Tablet PO Not Given TID NELY Calamine 1 applic 05/08/25 02:18 Calamine/Zinc Oxide 177 Ml Bottle TOP PRN PRN SKIN CARE Cefepime HCl 2 gm 05/07/25 09:00 05/08/25 09:51 Cefepime 2 Gm Vial IVP 2 gm BID NELY Administration Cholecalciferol 400 unit 05/08/25 09:00 05/08/25 09:49 Cholecalciferol 400 Unit Tablet PO 400 unit DAILY NELY Administration Enoxaparin Sodium 40 mg 05/07/25 09:00 05/08/25 09:50 Enoxaparin 40 Mg/0.4 Ml Syringe SUBQ 40 mg DAILY NELY Administration Lactated Ringer's 1,000 mls @ 125 mls/hr 05/08/25 12:00 Lr IV .Q8H [facility] Metoprolol Succinate 12.5 mg 05/08/25 09:00 05/08/25 11:57 Metoprolol Succinate 25 Mg Tablet PO Not Given DAILY [facility] Mineral Oil 1 applic 05/08/25 02:18 Min Oil/Dimethicon/Coconut Oil 92 Gm Tube TOP PRN PRN Skin Care Ondansetron HCl 4 mg 05/06/25 23:22 Ondansetron Odt 4 Mg Tablet TL Q6HR PRN Nausea / Vomiting Ondansetron HCl 4 mg 05/06/25 23:22 Ondansetron 4 Mg/2 Ml Vial IVP Q6HR PRN Nausea / Vomiting Pantoprazole Sodium 40 mg 05/08/25 07:00 05/08/25 06:38 Pantoprazole 40 Mg Tablet PO 40 mg QDAC NELY Administration Petrolatum 1 applic 05/08/25 02:18 Petrolatum White 5 Gm Packet TOP PRN PRN Dry Lips Sodium Chloride 10 ml 05/06/25 23:22 Sodium Chloride Flush 0.9% 10 Ml Syringe IVP PRN PRN NEEDED PER PROVIDER ORDERS Sodium Chloride 10 ml 05/07/25 01:00 05/08/25 09:58 Sodium Chloride Flush 0.9% 10 Ml Syringe IVP 10 ml 0100,0900,1700 NELY Administration Solifenacin 10 mg 05/08/25 09:00 05/08/25 09:49 Solifenacin Succinate 5 Mg Tablet PO 10 mg DAILY NELY Administration Zinc Oxide 113 gm 05/08/25 02:18 Cod Liver Oil/Zinc Oxide 113 Gm Tube TOP PRN PRN Skin Care Objective Vital Signs/Intake & Output Reviewed Vital Signs: Yes Vital Signs: Vital Signs x48h Temp Pulse Resp BP Pulse Ox 05/08/25 12:05 98.6 F 78 18 114/50 L 96 05/08/25 10:00 91 20 108/45 L 95 05/08/25 08:15 98.2 F 89 18 95/45 L 95 Intake & Output: Intake & Output 05/05/25 05/06/25 05/07/25 05/08/25 23:59 23:59 23:59 23:59 Intake Total 1999 / 1999 1178 / 1178 240 / 240 Output Total 3428 / 3428 3000 / 3000 875 / 875 Balance -1428 / -1428 -1822 / -1822 -635 / -635 Weight (kg) 126 lb 12.253 oz 121 lb 4.068 oz Objective General Appearance: positive No acute distress, Alert and Other (Elderly female) Eyes Bilateral: positive Normal inspection Respiratory: positive Chest non-tender and No respiratory distress Cardiovascular: positive Regular rate & rhythm Abdomen: positive Non-tender Skin: positive Color nml Extremities: positive Non-tender Neurologic/Psychiatric: positive Oriented x3 Lab Results 05/08/25 04:23 05/08/25 04:23 Other Labs: Lab Results x24hrs 05/08/25 Range/Units 04:23 WBC 16.8 H (4.8-10.8) x10^3/uL RBC 3.18 L (4.20-5.40) 10^6/uL Hgb 8.8 L (12.0-16.0) g/dL Hct 28.6 L (37.0-47.0) % MCV 89.9 (81.0-99.0) fL MCH 27.7 (27.0-31.0) pg MCHC 30.8 L (32.0-36.0) g/dL RDW 14.5 (12.0-15.0) % Plt Count 383 (130-450) 10^3/uL MPV 8.7 (7.9-10.8) fL Neut # (Auto) 13.7 H (1.5-6.6) 10^3/uL Lymph # (Auto) 1.1 L (1.5-3.5) 10^3/uL [place] # (Auto) 1.2 H (0.0-1.0) 10^3/uL Eos # (Auto) 0.5 (0.0-0.7) 10^3/uL Baso # (Auto) 0.1 (0.0-0.1) 10^3/uL Absolute Nucleated RBC 0.00 x10^3/uL Nucleated RBC % 0.0 /100WBC Sodium 132 L (135-145) mmol/L Potassium 3.4 L (3.5-4.5) mmol/L Chloride 101 (101-111) mmol/L Carbon Dioxide 25 (21-32) mmol/L Anion Gap 6.0 (6-13) BUN 23 H (6-20) mg/dL Creatinine 0.7 (0.6-1.3) mg/dL Estimated GFR (MDRD) 79 L (>89) Glucose 120 H (74-104) mg/dL Calcium 8.2 L (8.5-10.3) mg/dL Assessment/Plan Problem List (1) Sepsis: Impression: Met SIRS criteria with fever, elevated heart rate, elevated WBC Received 2 L fluid resuscitation Continue NS at 100 Source is UTI, manage as below Blood, urine cultures pending 05/08: Started LR at 125. WBC down to 16.8 today. Afebrile. Blood and urine cultures are both showing Pseudomonas, continue cefepime. Anticipate medical readiness for discharge back to [facility] in 1 to 2 days, she will continue her course of antibiotics at [facility]. I have contacted anesthesia and requested PICC line Qualifiers: Sepsis acute organ dysfunction status: with acute organ dysfunction S epsis type: sepsis due to unspecified organism Severe sepsis acute organ dysfunction type: encephalopathy Severe sepsis shock status: without septic shock Qualified Code(s): A41.9 - Sepsis, unspecified organism; R65.20 - Severe sepsis without septic shock; G93.41 - Metabolic encephalopathy (2) Urinary tract infection: Impression: UA positive Cultures pending History of Pseudomonas, treating with cefepime 2 g twice daily Qualifiers: Urinary tract infection type: acute pyelonephritis Qualified Code(s): N 10 - Acute pyelonephritis (3) Hyponatremia: Impression: Repleted and resolved. Daily BMP (4) HTN (hypertension): Impression: Restart home metoprolol and losartan tomorrow
[2025-05-08] MEDS: LACTATED RINGERS 1,000 ML IV SCH (14:15)
--- NOTE | 2025-05-08 15:33 | ANESTHESIA PROCEDURE NOTE ---
Anesth Central Line Template Central Line Central Line Preparation: Consent Obtained, Time out completed, Ultrasound used and Sterile prep and drape Central line location: Right Basilic Central line type: Other (left 17cm as midline catheter as unable to advance past axilla) Central line catheter tip site resides: Unspecified upper vein access Central line aftercare: Secured and Pt tolerated well Other Info/Details: single lumen 4.5 PICC line kit used and cut down to midline at 17cm
--- NOTE | 2025-05-08 16:03 | PT Plan of Care ---
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 Admitted with AMS, UTI, sepsis. Cleared for eval by hospitalist. Upon PT eval, A &Ox2, minimal pain at rest and agrees to participate. Active motion in all 4 limbs, LLE hip flexion limited by pain. Overall strength grossly 4/5 aside from LLE, not formally tested d/t recent sx. During supine vitals check, pt falls asleep and is rousable but unable to attend to task or follow cues. Given this, held progression of mobility at this time; pt positioned for comfort. Given presentation of deconditioning, pain, and limited mobility, pt will benefit from skilled PT in acute setting to progress functional mobility and upright tolerance. When medically clear, PT rec dc to SNF for continued rehab. Goals Improve bed mobility to: Modified Independent Improve supine to sit to: Contact Guard Improve sit to stand to: Minimal Assist Improve pivot transfer ability Minimal Assist to: Improve sit to supine to: Minimal Assist Improve gait ability to: Min A Assistive Device Used: Front Wheeled Walker Improve Sitting Balance to: Good Improve Standing Balance to: Fair PT Plan of Care Frequency 1-2x/day Duration Until discharge Discharge Recommendations Discharge Location Long-Term Facility DC Equipment Recommended Front wheeled walker Transport Needs at Discharge B.L.S Other BLS d/t AMS
--- NOTE | 2025-05-09 01:40 | XRAY Report ---
PROCEDURE: XR Chest 1V INDICATIONS: confirm proper picc placement TECHNIQUE: One view of the chest was acquired. COMPARISON: May 06, 2025. May 28, 2023 FINDINGS: Surgical changes and devices: Stent material projects over the upper abdomen. Lungs and pleura: No pleural effusions or pneumothorax. No consolidation. Chronic fibrotic changes, worsened. Mediastinum: Mediastinal contours appear normal. Heart size is normal. Bones and chest wall: No suspicious bony lesions. Overlying soft tissues appear unremarkable. Osseous demineralization. IMPRESSION: No acute cardiopulmonary process. Chronic fibrotic changes, worsened from 2022 examination. Reviewed by: Joshua Zhu MD on 05/09/2025 1:37 AM PDT Approved by: Joshua Zhu MD on 05/09/2025 1:37 AM PDT Station ID: [id number]
[2025-05-09 04:42] LABS: HCT - HEMATOCRIT 25.6 % (37.0-47.0); HGB - HEMOGLOBIN 7.9 g/dL (12.0-16.0); MEAN PLATELET VOLUME 8.7 fL (7.9-10.8); NRBC ABSOLUTE COUNT (AUTO) 0.00 x10^3/uL; NUCLEATED RED BLOOD CELLS AUTO 0.0 /100WBC; PLT - PLATELET COUNT 390 10^3/uL (130-450); RED CELL DISTRIBUTION WIDTH 14.6 % (12.0-15.0)
[2025-05-09 04:55] LABS: BUN - BLOOD UREA NITROGEN 16.0 mg/dL (6-20); CARBON DIOXIDE - CO2 24.0 mmol/L (21-32); CREATININE 0.7 mg/dL (0.6-1.3); GFR - MDRD 79.0 (>89)
[2025-05-09] MEDS: MULTIVITAMIN W/MINERALS TABLET PO SCH (08:52)
[2025-05-09] MEDS: CALCIUM CARBONATE CHEW 500 MG TABLET PO SCH (08:52)
--- NOTE | 2025-05-09 12:25 | PROVIDER PROGRESS NOTE ---
Subjective Prog Note Date Prog Note Date: 05/09/25 Subjective Subjective: daughter states that she looks and feels better than since hip surgery. Current Medications Current Medications Current Medications: Current Medications Generic Name Dose Route Start Last Admin Trade Name Freq PRN Reason Stop Dose Admin Acetaminophen 650 mg 05/06/25 23:22 Acetaminophen 325 Mg Tablet PO Q4HR PRN Pain 1 to 4, or Fever Acetaminophen 1,000 mg 05/07/25 14:00 05/09/25 06:08 Acetaminophen 500 Mg Tablet PO 1,000 mg TID NELY Administration Calamine 1 applic 05/08/25 02:18 Calamine/Zinc Oxide 177 Ml Bottle TOP PRN PRN SKIN CARE Calcium Carbonate/Glycine 500 mg 05/09/25 09:00 05/09/25 08:52 Calcium Carbonate Chew 500 Mg Tablet PO 500 mg DAILY NELY Administration Cefepime HCl 2 gm 05/07/25 09:00 05/09/25 08:51 Cefepime 2 Gm Vial IVP 2 gm BID NELY Administration Cholecalciferol 400 unit 05/08/25 09:00 05/09/25 08:52 Cholecalciferol 400 Unit Tablet PO 400 unit DAILY NELY Administration Enoxaparin Sodium 40 mg 05/07/25 09:00 05/09/25 08:52 Enoxaparin 40 Mg/0.4 Ml Syringe SUBQ 40 mg DAILY NELY Administration Lactated Ringer's 1,000 mls @ 125 mls/hr 05/08/25 12:00 05/09/25 06:22 Lr IV 125 mls/hr .Q8H NELY Administration Metoprolol Succinate 12.5 mg 05/08/25 09:00 05/09/25 08:52 Metoprolol Succinate 25 Mg Tablet PO 12.5 mg DAILY NELY Administration Mineral Oil 1 applic 05/08/25 02:18 Min Oil/Dimethicon/Coconut Oil 92 Gm Tube TOP PRN PRN Skin Care Multivitamins/Minerals 1 tab 05/09/25 08:00 05/09/25 08:52 Multivitamin W/Minerals Tablet PO 1 tab DAILYWM NELY Administration Ondansetron HCl 4 mg 05/06/25 23:22 Ondansetron Odt 4 Mg Tablet TL Q6HR PRN Nausea / Vomiting Ondansetron HCl 4 mg 05/06/25 23:22 Ondansetron 4 Mg/2 Ml Vial IVP Q6HR PRN Nausea / Vomiting Pantoprazole Sodium 40 mg 05/08/25 07:00 05/09/25 06:08 Pantoprazole 40 Mg Tablet PO 40 mg QDAC NELY Administration Petrolatum 1 applic 05/08/25 02:18 Petrolatum White 5 Gm Packet TOP PRN PRN Dry Lips Sodium Chloride 10 ml 05/06/25 23:22 Sodium Chloride Flush 0.9% 10 Ml Syringe IVP PRN PRN NEEDED PER PROVIDER ORDERS Sodium Chloride 10 ml 05/07/25 01:00 05/09/25 08:52 Sodium Chloride Flush 0.9% 10 Ml Syringe IVP 10 ml 0100,0900,1700 NELY Administration Solifenacin 10 mg 05/08/25 09:00 05/09/25 08:52 Solifenacin Succinate 5 Mg Tablet PO 10 mg DAILY NELY Administration Zinc Oxide 113 gm 05/08/25 02:18 Cod Liver Oil/Zinc Oxide 113 Gm Tube TOP PRN PRN Skin Care Objective Vital Signs/Intake & Output Reviewed Vital Signs: Yes Vital Signs: Vital Signs x48h Temp Pulse Resp BP Pulse Ox 05/09/25 08:22 36.6 C 64 24 145/63 H 96 05/09/25 05:21 133/67 H Intake & Output: Intake & Output 05/06/25 05/07/25 05/08/25 05/09/25 23:59 23:59 23:59 23:59 Intake Total 1999 / 1999 1178 / 1178 2240 / 2240 1100 / 1100 Output Total 3428 / 3428 3000 / 3000 1575 / 1575 975 / 975 Balance -1428 / -1428 -1822 / -1822 665 / 665 125 / 125 Weight (kg) 57.5 kg 55 kg Objective General Appearance: positive No acute distress and Alert Eyes Bilateral: positive Normal inspection ENT: positive ENT inspection nml Respiratory: positive No respiratory distress and Breath sounds nml Cardiovascular: positive Regular rate & rhythm Abdomen: positive Non-tender Skin: positive Color nml Extremities: positive Non-tender Neurologic/Psychiatric: positive Oriented x3 Lab Results 05/09/25 04:17 05/09/25 04:17 Other Labs: Lab Results x24hrs 05/09/25 Range/Units 04:17 WBC 11.0 H (4.8-10.8) x10^3/uL RBC 2.87 L (4.20-5.40) 10^6/uL Hgb 7.9 L (12.0-16.0) g/dL Hct 25.6 L (37.0-47.0) % MCV 89.2 (81.0-99.0) fL MCH 27.5 (27.0-31.0) pg MCHC 30.9 L (32.0-36.0) g/dL RDW 14.6 (12.0-15.0) % Plt Count 390 (130-450) 10^3/uL MPV 8.7 (7.9-10.8) fL Neut # (Auto) 7.8 H (1.5-6.6) 10^3/uL Lymph # (Auto) 1.4 L (1.5-3.5) 10^3/uL [place] # (Auto) 0.9 (0.0-1.0) 10^3/uL Eos # (Auto) 0.7 (0.0-0.7) 10^3/uL Baso # (Auto) 0.1 (0.0-0.1) 10^3/uL Absolute Nucleated RBC 0.00 x10^3/uL Nucleated RBC % 0.0 /100WBC Sodium 131 L (135-145) mmol/L Potassium 4.0 (3.5-4.5) mmol/L Chloride 102 (101-111) mmol/L Carbon Dioxide 24 (21-32) mmol/L Anion Gap 5.0 L (6-13) BUN 16 (6-20) mg/dL Creatinine 0.7 (0.6-1.3) mg/dL Estimated GFR (MDRD) 79 L (>89) Glucose 108 H (74-104) mg/dL Calcium 7.8 L (8.5-10.3) mg/dL Assessment/Plan Problem List (1) Sepsis: Impression: Resolving. Her vital signs show no fevers. No tachycardia. No tachypnea. Her white blood cell count is down to 11 today from 16.8 yesterday. Her blood cultures are positive for Pseudomonas. Urinalysis greater than 100,000 colony- forming units of Pseudomonas. It is sensitive to cefepime. This patient should get 7 days of IV antibiotics for gram-negative bacteremia. Her last dose of antibiotics should be the morning of 05/13/2025. She has a midline in place that is not aspirating but is flushing without difficulty. I have contacted anesthesia for clearance on using the midline. I see the line in position on the chest XR. I have spoken with anesthesia (DONNA Kahn) several times today regarding this line. considered venogram to assess position, but patient allergic to IV dye. therefore have ordered US in AM to assess line position for safety. Anticipate that pt could dc to [facility] tomorrow, if line is in good position. Qualifiers: Sepsis acute organ dysfunction status: with acute organ dysfunction S epsis type: sepsis due to unspecified organism Severe sepsis acute organ dysfunction type: encephalopathy Severe sepsis shock status: without septic shock Qualified Code(s): A41.9 - Sepsis, unspecified organism; R65.20 - Severe sepsis without septic shock; G93.41 - Metabolic encephalopathy (2) Urinary tract infection: Impression: UA positive >100 CFU pseudomonas. treating with cefepime 2 g twice daily, appreciate pharmacy for dosing. 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 Qualifiers: Urinary tract infection type: acute pyelonephritis Qualified Code(s): N 10 - Acute pyelonephritis (3) Hyponatremia: Impression: likely related to sepsis. Daily BMP (4) HTN (hypertension): Impression: home metoprolol and losartan have been restarted. Selected Entries 05/09/25 08:22 05/09/25 14:59 05/09/25 15:44 Pulse Rate [Brachial] 64 67 70 Blood Pressure [Right Ankle] 145/63 H 129/79 148/95 H (5) Urinary retention: Impression: She has had a bladder scan this evening of >900cc. I have recommended to family and RN that we replace the joyce to allow stretch injury to resolve. I have started the patient on tamsulosin to start tonight. she may need to dc to SNF and do void trial there. This patient's diagnosis and treatment plan was discussed this AM with attending physician as a part of multi disciplinary rounding meeting. I have spent 53 minutes in the care of this patient today. This includes time [id number], review and ordering of diagnostic imaging and laboratory studies. Monitoring the patient's signs symptoms, evaluation of medication effectiveness and patient's response to treatment.
[2025-05-09] MEDS: SODIUM CHLORIDE FLUSH 0.9% 10 ML SYRINGE IVP PRN (20:43)
[2025-05-10 05:28] LABS: HCT - HEMATOCRIT 27.7 % (37.0-47.0); HGB - HEMOGLOBIN 8.7 g/dL (12.0-16.0); MEAN PLATELET VOLUME 8.4 fL (7.9-10.8); NRBC ABSOLUTE COUNT (AUTO) 0.00 x10^3/uL; NUCLEATED RED BLOOD CELLS AUTO 0.0 /100WBC; PLT - PLATELET COUNT 404 10^3/uL (130-450); RED CELL DISTRIBUTION WIDTH 14.5 % (12.0-15.0)
[2025-05-10 05:47] LABS: BUN - BLOOD UREA NITROGEN 13.0 mg/dL (6-20); CARBON DIOXIDE - CO2 26.0 mmol/L (21-32); CREATININE 0.7 mg/dL (0.6-1.3); GFR - MDRD 79.0 (>89)
--- NOTE | 2025-05-10 17:10 | PROVIDER PROGRESS NOTE ---
Subjective Prog Note Date Prog Note Date: 05/10/25 Subjective Subjective: She has been exhausted today. too tired to eat, and did not do well with breakfast. then had a very large BM and just feels tired. when I am seeing her later this afternoon, she is more awake and alert, but still does not feel well. I asked her about her goals. She wants to get home again where she can cook for her family and friends. before her most recent hip fracture, she was planning a trip to [place] to see her daughter, and she had been very functional. Cooking, cleaning and keeping a tidy home. one of her daughters lives with her. She wants to get back to her life at home with family. At one point during the interview she starts to tell me that she does not think she will see her 89th birthday in less than a month, but when we finish up, she thinks that she can do it, and she does want to continue to live, as long as she can get back to baseline functional status. Current Medications Current Medications Current Medications: Current Medications Generic Name Dose Route Start Last Admin Trade Name Freq PRN Reason Stop Dose Admin Acetaminophen 650 mg 05/06/25 23:22 Acetaminophen 325 Mg Tablet PO Q4HR PRN Pain 1 to 4, or Fever Acetaminophen 1,000 mg 05/07/25 14:00 05/10/25 13:25 Acetaminophen 500 Mg Tablet PO Not Given TID NELY Calamine 1 applic 05/08/25 02:18 Calamine/Zinc Oxide 177 Ml Bottle TOP PRN PRN SKIN CARE Calcium Carbonate/Glycine 500 mg 05/09/25 09:00 05/10/25 08:45 Calcium Carbonate Chew 500 Mg Tablet PO 500 mg DAILY NELY Administration Cefepime HCl 2 gm 05/07/25 09:00 05/10/25 08:44 Cefepime 2 Gm Vial IVP 2 gm BID NELY Administration Cholecalciferol 400 unit 05/08/25 09:00 05/10/25 08:45 Cholecalciferol 400 Unit Tablet PO 400 unit DAILY NELY Administration Enoxaparin Sodium 40 mg 05/07/25 09:00 05/10/25 08:44 Enoxaparin 40 Mg/0.4 Ml Syringe SUBQ 40 mg DAILY NELY Administration Metoprolol Succinate 12.5 mg 05/08/25 09:00 05/10/25 08:45 Metoprolol Succinate 25 Mg Tablet PO 12.5 mg DAILY NELY Administration Mineral Oil 1 applic 05/08/25 02:18 Min Oil/Dimethicon/Coconut Oil 92 Gm Tube TOP PRN PRN Skin Care Multivitamins/Minerals 1 tab 05/09/25 08:00 05/10/25 08:45 Multivitamin W/Minerals Tablet PO 1 tab DAILYWM NELY Administration Ondansetron HCl 4 mg 05/06/25 23:22 Ondansetron Odt 4 Mg Tablet TL Q6HR PRN Nausea / Vomiting Ondansetron HCl 4 mg 05/06/25 23:22 Ondansetron 4 Mg/2 Ml Vial IVP Q6HR PRN Nausea / Vomiting Pantoprazole Sodium 40 mg 05/08/25 07:00 05/10/25 06:04 Pantoprazole 40 Mg Tablet PO 40 mg QDAC NELY Administration Petrolatum 1 applic 05/08/25 02:18 Petrolatum White 5 Gm Packet TOP PRN PRN Dry Lips Sodium Chloride 10 ml 05/06/25 23:22 05/09/25 20:43 Sodium Chloride Flush 0.9% 10 Ml Syringe IVP 10 ml PRN PRN Administration NEEDED PER PROVIDER ORDERS Sodium Chloride 10 ml 05/07/25 01:00 05/10/25 08:45 Sodium Chloride Flush 0.9% 10 Ml Syringe IVP 10 ml 0100,0900,1700 NELY Administration Tamsulosin HCl 0.4 mg 05/10/25 21:00 Tamsulosin 0.4 Mg Capsule PO DAILY NELY Zinc Oxide 113 gm 05/08/25 02:18 Cod Liver Oil/Zinc Oxide 113 Gm Tube TOP PRN PRN Skin Care Objective Vital Signs/Intake & Output Reviewed Vital Signs: Yes Vital Signs: Vital Signs x48h Temp Pulse Resp BP Pulse Ox 05/10/25 16:20 36.7 C 65 20 104/76 94 05/10/25 13:00 36.5 C 69 22 157/85 H 96 Intake & Output: Intake & Output 05/07/25 05/08/25 05/09/25 05/10/25 23:59 23:59 23:59 23:59 Intake Total 1178 / 1178 2240 / 2240 2570 / 2570 75 / 75 Output Total 3000 / 3000 1575 / 1575 2500 / 2500 2200 / 2200 Balance -1822 / -1822 665 / 665 70 / 70 -5 / -5 Weight (kg) 55 kg Objective General Appearance: positive No acute distress and Alert Eyes Bilateral: positive Normal inspection ENT: positive ENT inspection nml Respiratory: positive No respiratory distress and Breath sounds nml Cardiovascular: positive Regular rate & rhythm Abdomen: positive Non-tender Skin: positive Color nml Extremities: positive Non-tender Neurologic/Psychiatric: positive Oriented x3 Lab Results 05/10/25 05:07 05/10/25 05:07 Other Labs: Lab Results x24hrs 05/10/25 Range/Units 05:07 WBC 9.0 (4.8-10.8) x10^3/uL RBC 3.10 L (4.20-5.40) 10^6/uL Hgb 8.7 L (12.0-16.0) g/dL Hct 27.7 L (37.0-47.0) % MCV 89.4 (81.0-99.0) fL MCH 28.1 (27.0-31.0) pg MCHC 31.4 L (32.0-36.0) g/dL RDW 14.5 (12.0-15.0) % Plt Count 404 (130-450) 10^3/uL MPV 8.4 (7.9-10.8) fL Neut # (Auto) 5.7 (1.5-6.6) 10^3/uL Lymph # (Auto) 1.5 (1.5-3.5) 10^3/uL [place] # (Auto) 0.7 (0.0-1.0) 10^3/uL Eos # (Auto) 0.8 H (0.0-0.7) 10^3/uL Baso # (Auto) 0.1 (0.0-0.1) 10^3/uL Absolute Nucleated RBC 0.00 x10^3/uL Nucleated RBC % 0.0 /100WBC Sodium 133 L (135-145) mmol/L Potassium 4.1 (3.5-4.5) mmol/L Chloride 102 (101-111) mmol/L Carbon Dioxide 26 (21-32) mmol/L Anion Gap 5.0 L (6-13) BUN 13 (6-20) mg/dL Creatinine 0.7 (0.6-1.3) mg/dL Estimated GFR (MDRD) 79 L (>89) Glucose 100 (74-104) mg/dL Calcium 8.3 L (8.5-10.3) mg/dL Assessment/Plan Problem List (1) Sepsis: Impression: Resolving. Her vital signs show no fevers. No tachycardia. No tachypnea. Her white blood cell count is down to 9. Her blood cultures are positive for Pseudomonas. Urinalysis greater than 100,000 colony-forming units of Pseudomonas. It is sensitive to cefepime. This patient should get 7 days of IV antibiotics for gram-negative bacteremia. Her last dose of antibiotics should be the morning of 05/13/2025. She has a midline in place that is not aspirating but is flushing without difficulty. I have contacted anesthesia for clearance on using the midline. I spoke with anesthesia again today, and they assure me that the midline is in good position and can be used. Qualifiers: Sepsis acute organ dysfunction status: with acute organ dysfunction S epsis type: sepsis due to unspecified organism Severe sepsis acute organ dysfunction type: encephalopathy Severe sepsis shock status: without septic shock Qualified Code(s): A41.9 - Sepsis, unspecified organism; R65.20 - Severe sepsis without septic shock; G93.41 - Metabolic encephalopathy (2) Urinary tract infection: Impression: UA positive >100 CFU pseudomonas. treating with cefepime 2 g twice daily, appreciate pharmacy for dosing. 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 Qualifiers: Urinary tract infection type: acute pyelonephritis Qualified Code(s): N 10 - Acute pyelonephritis (3) Hyponatremia: Impression: likely related to sepsis. Daily BMP Laboratory Tests 05/10/25 05:07 Sodium 133 L (4) HTN (hypertension): Impression: home metoprolol and losartan have been restarted. Blood pressures are normal. (5) Urinary retention: Impression: She has had a bladder scan >900cc. Joyce placed. she has been started on flomax. would not recommend removing the joyce for at least 5 days. This patient's diagnosis and treatment plan was discussed this AM with attending physician as a part of multi disciplinary rounding meeting. I have spent 45 minutes in the care of this patient today. This includes time [id number], review and ordering of diagnostic imaging and laboratory studies. Monitoring the patient's signs symptoms, evaluation of medication effectiveness and patient's response to treatment.
[2025-05-10] MEDS: HYDROCORTISONE 1% CREAM 28 GM TUBE TOP SCH (21:22)
[2025-05-10] MEDS: TAMSULOSIN 0.4 MG CAPSULE PO SCH (21:24)
[2025-05-11 05:20] LABS: HCT - HEMATOCRIT 32.0 % (37.0-47.0); HGB - HEMOGLOBIN 9.8 g/dL (12.0-16.0); MEAN PLATELET VOLUME 8.5 fL (7.9-10.8); PLT - PLATELET COUNT 425 10^3/uL (130-450); RED CELL DISTRIBUTION WIDTH 14.5 % (12.0-15.0)
[2025-05-11 05:23] LABS: ABNORMAL LYMPHS % (MANUAL) 0 %; BAND NEUTROPHILS % (MANUAL) 0 %; BASOPHILS # (MANUAL) 0.0 10^3/uL (0-0.1)
[2025-05-11 05:39] LABS: BUN - BLOOD UREA NITROGEN 13.0 mg/dL (6-20); CARBON DIOXIDE - CO2 28.0 mmol/L (21-32); CREATININE 0.6 mg/dL (0.6-1.3); GFR - MDRD 94.0 (>89)
[2025-05-11 06:02] LABS: EOSINOPHILS # (MANUAL) 1.1 10^3/uL (0-0.7); LYMPHOCYTES # (MANUAL) 1.9 10^3/uL (1.5-3.5); LYMPHOCYTES % (MANUAL) 18 %; METAMYELOCYTES % (MANUAL) 1 %; MONOCYTES # (MANUAL) 0.6 10^3/uL (0.0-1.0); MYELOCYTES % (MANUAL) 1 %; NEUTROPHILS # (MANUAL) 6.6 10^3/uL (1.5-6.6)
[2025-05-11 06:04] LABS: PLATELET ESTIMATE, MANUAL NORMAL (130-450,000) (NORMAL); PLATELET MORPHOLOGY NORMAL APPEARANCE (NORMAL); RBC MORPHOLOGY (MULTIPLE) 1+ HYPOCHROMASIA (NORMAL); WBC MORPHOLOGY (MULTIPLE) NORMAL APPEARANCE (NORMAL)
--- NOTE | 2025-05-11 13:39 | Speech Therapy Plan of Care ---
DIAGNOSIS Date of Service Date of Service: 05/11/25 Diagnosis: UTI/SEPSIS MEDICAL/SURGICAL PAST HISTORY Past History Medical History (Updated 05/09/25 @ 17:26 by JOSE C Hammonds) HTN (hypertension) Back pain Heart murmur Femur fracture, right SPEECH ASSESSMENT Assessment: Ms. Dupont is an 89-year-old female s/p recent left hip replacement for fracture ([facility], Dr. Cabrera), admitted 05/06 with AMS, UTI, and sepsis. Speech consulted for concern of new-onset dysphagia following RN report of difficulty swallowing solids last night and pills this morning. Pt seen at lunchtime, awake, alert, and oriented 4, seated upright in chair with daughter Ciera and son Reji present. Pt reports dry mouth from medications contributing to pill-swallowing difficulty and fatigue at dinner when trying to please family by eating when she was very tired. Oral mech exam: Mild labial asymmetry; mildly reduced labial/lingual agility and ROM. PO trials: [place] sandwich, clam chowder with crackers, and thin liquids via straw sipall tolerated WNL. No overt s/s of penetration or aspiration observed; silent aspiration cannot be ruled out but not suspected. Impression: Functional oropharyngeal swallow. Cognitive status appears at/near baseline. Plan: Continue regular diet with thin liquids. Reviewed aspiration precautions with Pt and family, encouraged hydration, and provided strategies for medication swallowing. Will follow for duration of stay. CAREGIVER/PATIENT GOALS Patient/Caregiver Goals: To go home SPEECH PLAN OF CARE Treatment Frequency: PRN Treatment Duration: PRN
--- NOTE | 2025-05-11 14:04 | PROVIDER PROGRESS NOTE ---
Subjective Prog Note Date Prog Note Date: 05/11/25 Subjective Subjective: She has a course that has been waxing and waning. seems to feel poorly for several hours after each dose of cefepime. Choked on pills this AM. Was seen by speech and did well after that. she struggles with a dry mouth. She is off all narcotic pain meds and I discontinued her Vesicare several days ago due to the dry mouth. We discussed ways to combat the dry mouth, and they are going to try some of the medically thickened liquids this afternoon Current Medications Current Medications Current Medications: Current Medications Generic Name Dose Route Start Last Admin Trade Name Freq PRN Reason Stop Dose Admin Acetaminophen 650 mg 05/06/25 23:22 Acetaminophen 325 Mg Tablet PO Q4HR PRN Pain 1 to 4, or Fever Acetaminophen 1,000 mg 05/07/25 14:00 05/11/25 06:04 Acetaminophen 500 Mg Tablet PO 1,000 mg TID NELY Administration Calamine 1 applic 05/08/25 02:18 Calamine/Zinc Oxide 177 Ml Bottle TOP PRN PRN SKIN CARE Calcium Carbonate/Glycine 500 mg 05/09/25 09:00 05/11/25 09:13 Calcium Carbonate Chew 500 Mg Tablet PO 500 mg DAILY NELY Administration Cefepime HCl 2 gm 05/07/25 09:00 05/11/25 09:12 Cefepime 2 Gm Vial IVP 2 gm BID NELY Administration Cholecalciferol 400 unit 05/08/25 09:00 05/11/25 09:12 Cholecalciferol 400 Unit Tablet PO 400 unit DAILY NELY Administration Diphenhydramine HCl 25 mg 05/10/25 18:34 05/10/25 18:58 Diphenhydramine Inj 50 Mg/Ml Vial IVP 25 mg Q6H PRN Administration Allergy Symptoms Enoxaparin Sodium 40 mg 05/07/25 09:00 05/11/25 09:31 Enoxaparin 40 Mg/0.4 Ml Syringe SUBQ 40 mg DAILY NELY Administration Hydrocortisone 1 applic 05/10/25 21:00 05/11/25 09:12 Hydrocortisone 1% Cream 28 Gm Tube TOP 1 applic BID NELY Administration Metoprolol Succinate 12.5 mg 05/08/25 09:00 05/11/25 09:12 Metoprolol Succinate 25 Mg Tablet PO 12.5 mg DAILY NELY Administration Mineral Oil 1 applic 05/08/25 02:18 Min Oil/Dimethicon/Coconut Oil 92 Gm Tube TOP PRN PRN Skin Care Multivitamins/Minerals 1 tab 05/09/25 08:00 05/11/25 09:12 Multivitamin W/Minerals Tablet PO 1 tab DAILYWM NELY Administration Ondansetron HCl 4 mg 05/06/25 23:22 Ondansetron Odt 4 Mg Tablet TL Q6HR PRN Nausea / Vomiting Ondansetron HCl 4 mg 05/06/25 23:22 Ondansetron 4 Mg/2 Ml Vial IVP Q6HR PRN Nausea / Vomiting Pantoprazole Sodium 40 mg 05/08/25 07:00 05/11/25 06:04 Pantoprazole 40 Mg Tablet PO 40 mg QDAC NELY Administration Petrolatum 1 applic 05/08/25 02:18 Petrolatum White 5 Gm Packet TOP PRN PRN Dry Lips Sodium Chloride 10 ml 05/06/25 23:22 05/09/25 20:43 Sodium Chloride Flush 0.9% 10 Ml Syringe IVP 10 ml PRN PRN Administration NEEDED PER PROVIDER ORDERS Sodium Chloride 10 ml 05/07/25 01:00 05/11/25 09:13 Sodium Chloride Flush 0.9% 10 Ml Syringe IVP 10 ml 0100,0900,1700 NELY Administration Tamsulosin HCl 0.4 mg 05/10/25 21:00 05/11/25 09:12 Tamsulosin 0.4 Mg Capsule PO 0.4 mg DAILY NELY Administration Zinc Oxide 113 gm 05/08/25 02:18 Cod Liver Oil/Zinc Oxide 113 Gm Tube TOP PRN PRN Skin Care Objective Vital Signs/Intake & Output Reviewed Vital Signs: Yes Vital Signs: Vital Signs x48h Temp Pulse Resp BP Pulse Ox 05/11/25 08:00 36.5 C 68 18 83/63 L 95 Intake & Output: Intake & Output 05/08/25 05/09/25 05/10/25 05/11/25 23:59 23:59 23:59 23:59 Intake Total 2240 / 2240 2570 / 2570 75 / 75 570 / 570 Output Total 1575 / 1575 2500 / 2500 3600 / 3600 1675 / 1675 Balance 665 / 665 70 / 70 -3525 / -3525 -1105 / -1105 Objective General Appearance: positive No acute distress and Alert Eyes Bilateral: positive Normal inspection ENT: positive ENT inspection nml Respiratory: positive No respiratory distress and Breath sounds nml Cardiovascular: positive Regular rate & rhythm Abdomen: positive Non-tender Skin: positive Color nml Extremities: positive Non-tender Neurologic/Psychiatric: positive Oriented x3 Lab Results 05/11/25 04:56 05/11/25 04:56 Other Labs: Lab Results x24hrs 05/11/25 Range/Units 04:56 WBC 10.4 (4.8-10.8) x10^3/uL RBC 3.56 L (4.20-5.40) 10^6/uL Hgb 9.8 L (12.0-16.0) g/dL Hct 32.0 L (37.0-47.0) % MCV 89.9 (81.0-99.0) fL MCH 27.5 (27.0-31.0) pg MCHC 30.6 L (32.0-36.0) g/dL RDW 14.5 (12.0-15.0) % Plt Count 425 (130-450) 10^3/uL MPV 8.5 (7.9-10.8) fL Neut # (Auto) Not Reportable Lymph # (Auto) Not Reportable [place] # (Auto) Not Reportable Eos # (Auto) Not Reportable Baso # (Auto) Not Reportable Absolute Nucleated RBC Not Reportable Total Counted 100 Band Neuts % (Manual) 0 (0 - 10) % Abnorm Lymph % (Manual) 0 % Metamyelocytes % 1 H ( - 0) % Myelocytes % 1 H ( - 0) % Nucleated RBC % Not Reportable Neutrophils # (Manual) 6.6 (1.5-6.6) 10^3/uL Lymphocytes # (Manual) 1.9 (1.5-3.5) 10^3/uL Monocytes # (Manual) 0.6 (0.0-1.0) 10^3/uL Eosinophils # (Manual) 1.1 H (0-0.7) 10^3/uL Basophils # (Manual) 0.0 (0-0.1) 10^3/uL Differential Comment MANUAL DIFFERENTIAL WBC Morphology NORMAL APPEARANCE (NORMAL) Platelet Estimate NORMAL (130-450,000) (NORMAL) Platelet Morphology NORMAL APPEARANCE (NORMAL) RBC Morph Micro Appear 1+ HYPOCHROMASIA (NORMAL) Sodium 134 L (135-145) mmol/L Potassium 4.1 (3.5-4.5) mmol/L Chloride 100 L (101-111) mmol/L Carbon Dioxide 28 (21-32) mmol/L Anion Gap 6.0 (6-13) BUN 13 (6-20) mg/dL Creatinine 0.6 (0.6-1.3) mg/dL Estimated GFR (MDRD) 94 (>89) Glucose 101 (74-104) mg/dL Calcium 8.5 (8.5-10.3) mg/dL Assessment/Plan Problem List (1) Sepsis: Impression: Resolving. HD #6. Her vital signs show no fevers. No tachycardia. No tachypnea. Her white blood cell count is down to 10.4. Her blood cultures are positive for Pseudomonas. Urinalysis greater than 100,000 colony-forming units of Pseudomonas. It is sensitive to cefepime. This patient should get 7 days of IV antibiotics for gram-negative bacteremia. Her last dose of antibiotics should be the morning of 05/13/2025. at the conclusion of today, she has 3 doses remaining. She has a midline in place that is not aspirating but is flushing without difficulty. She has a functional mid line in place. there have been concerns about xerostomia which is causing intermittent difficulty with swallow. Passed ST eval today. discussing with patient and family that this is the issue when she has difficulty. I have obtained some thickened liquids and they will try these, a spoonful for 2 when she starts to take PO, which may help her gets some lasting moisture in her mouth. they will experiment with this. Qualifiers: Sepsis acute organ dysfunction status: with acute organ dysfunction S epsis type: sepsis due to unspecified organism Severe sepsis acute organ dysfunction type: encephalopathy Severe sepsis shock status: without septic shock Qualified Code(s): A41.9 - Sepsis, unspecified organism; R65.20 - Severe sepsis without septic shock; G93.41 - Metabolic encephalopathy (2) Urinary tract infection: Impression: UA positive >100 CFU pseudomonas. treating with cefepime 2 g twice daily, appreciate pharmacy for dosing. 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 Qualifiers: Urinary tract infection type: acute pyelonephritis Qualified Code(s): N 10 - Acute pyelonephritis (3) Hyponatremia: Impression: likely related to sepsis. Daily BMP Laboratory Tests 05/06/25 05/06/25 05/10/25 21:32 23:54 05:07 Sodium 122 L 126 L 133 L 05/11/25 04:56 Sodium 134 L (4) HTN (hypertension): Impression: home metoprolol and losartan have been restarted. no bradycardia. isolated hypotension this morning. (5) Urinary retention: Impression: She has had a bladder scan >900cc. Joyce placed. she has been started on flomax. would not recommend removing the joyce for at least 5 days. This patient's diagnosis and treatment plan was discussed this AM with attending physician as a part of multi disciplinary rounding meeting. I have spent 38 minutes in the care of this patient today. This includes time [id number], review and ordering of diagnostic imaging and laboratory studies. Monitoring the patient's signs symptoms, evaluation of medication effectiveness and patient's response to treatment.
[2025-05-12 10:12] VITALS: TEMP 98.6
[2025-05-12] MEDS: ACETAMINOPHEN 325 MG TABLET PO PRN (11:13)
--- NOTE | 2025-05-12 11:14 | Discharge Summary ---
Discharge Summary Admit Date: 05/06/25 Discharge Date: 05/12/25 Discharging Provider: Mansi Smith PA-C Primary Care Provider: Soha Villegas MD Code Status: Do Not Attempt Resuscitation DIAGNOSES Discharge Diagnoses with Status of Each Condition: Sepsis, resolved Pseudomonas bacteremia, 2 additional doses of antibiotics to complete 7 days of IV antibiotics Urinary tract infection, Pseudomonas, adequately treated Hyponatremia, resolved Hypertension chronic and controlled Acute urinary retention. Failed Joyce removal once. Recommend 1 additional week prior to void trial. HPI History of Present Illness: 89-year-old female with history of COPD, hypertension, who had hip fracture with replacement about a week ago at [facility]. She was discharged to [facility] on , and family reports that her mentation has been varying ever since moving to [facility]. Family reports she is sleeping a lot and intermittently confused. They report that her face was extremely red today, and that she was febrile, so they requested patient be transferred to the ER. Before transfer, she had had a straight cath for urinary retention of 1200 mL liter. Facility reports that dipstick UA was positive for UTI. Patient denies chest pain, dyspnea, wheezing, bowel abnormality, but does report difficulty urinating and confusion In the ER, she was noted to have fever of 38.2 Celsius, heart rate 104. Lab work has thus far revealed a white blood cell count of 21.1. UA here had positive nitrites, large leukocyte esterase, moderate bacteria, greater than 25 WBC. She was given a liter of IVF and a dose of cefepime was ordered by ER provider and hospitalist was contacted for admission for sepsis secondary to UTI HOSPITAL COURSE Hospital Course: 1) Sepsis: Resolved. Her vital signs show no fevers. No tachycardia. No tachypnea. Her white blood cell count is down to 10.4. Her blood cultures are positive for Pseudomonas. Urinalysis greater than 100,000 colony-forming units of Pseudomonas. It is sensitive to cefepime. This patient should get 7 days of IV antibiotics for gram-negative bacteremia. Her last dose of antibiotics should be the morning of 05/13/2025. She has a midline in place that is not aspirating but is flushing without difficulty. there have been concerns about xerostomia which is causing intermittent difficulty with swallow. Passed ST eval. discussing with patient and family that this is the issue when she has difficulty. I have obtained some thickened liquids and they will try these, a spoonful for 2 when she starts to take PO, which may help her gets some lasting moisture in her mouth. they will experiment with this. These should also be available at [facility] (2) Urinary tract infection: UA positive >100 CFU pseudomonas. treating with cefepime 2 g twice daily. 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 (3) Hyponatremia: likely related to sepsis. Resolved. Laboratory Tests 05/06/25 05/06/25 05/10/25 21:32 23:54 05:07 Sodium 122 L 126 L 133 L 05/11/25 04:56 Sodium 134 L (4) HTN (hypertension): home metoprolol and losartan have been restarted. no bradycardia. (5) Urinary retention: She has had a bladder scan >900cc. Joyce placed. she has been started on flomax. would not recommend removing the joyce for at least 5 days. ALLERGIES Allergies Allergy/AdvReac Type Severity Reaction Status Date / Time nickel Allergy Rash Verified 05/06/25 20:01 iodine AdvReac Itching Verified 05/06/25 20:01 latex AdvReac Rash Verified 05/06/25 20:01 MEDICATIONS Ambulatory Orders Medication Instructions Recorded Confirmed metoprolol succinate 25 mg 12.5 mg PO DAILY 07/17/20 1 tablet,extended release 24 hr aspirin 325 mg tablet 325 mg PO DAILYWM 07/21/20 1 omega-3 acid ethyl esters 1 gram 1 g PO DAILY #30 caps 07/21/20 05/06/25 capsule betamethasone dipropionate 0.05 % 1 applic topical Q12 H PRN rash 05/06/25 05/07/25 topical ointment bisacodyl 10 mg rectal suppository 10 mg WV DAILY PRN constipation 05/06/25 05/07/25 (Laxative (bisacodyl)) cetirizine 10 mg capsule 10 mg PO DAILY PRN allergy s ymptoms 05/06/25 05/07/25 losartan 25 mg tablet 25 mg PO DAILY 05/06/2504/12 mineral oil 118 ml WV DAILY PRN constipa tion 05/06/25 05/07/25 omeprazole 20 mg capsule,delayed 20 mg PO DAILY 05/06/25 release polyethylene glycol 3350 17 17 g PO DAILY PRN constipa tion 05/06/25 05/07/25 gram/dose oral powder (Miralax) acetaminophen 650 mg 650 mg PO Q8H PRN pain 05/0705/07/25 tablet,extended release (8HR Muscle Aches-Pain) cholecalciferol (vitamin D3) 10 10 mcg PO DAILY 05/07/25 mcg (400 unit) tablet naloxone 4 mg/actuation nasal 1 spray intranasal PRN P RN opioid 05/07/25 05/07/25 spray (Narcan) overdose sennosides 8.6 mg tablet (senna) 17.2 mg PO DAILY PRN constipation 05/07/25 05/07/25 cefepime 2 gram solution for 2 g IV Q12H 2 doses 05/12 injection ciprofloxacin HCl 500 mg tablet 500 mg PO ONCE #1 tab 05/12/25 (Cipro) tamsulosin 0.4 mg capsule 0.4 mg PO DAILY #30 caps 08/05 PHYSICAL EXAM AT DISCHARGE Vital Signs: Vital Signs x48h Temp Pulse Resp BP Pulse Ox 05/12/25 12:30 37.0 C 76 16 171/95 H 94 General Appearance: positive No acute distress and Alert Eyes Bilateral: positive Conjunctivae nml ENT: positive ENT inspection nml Neck: positive Nml inspection Respiratory: positive No respiratory distress and Breath sounds nml Cardiovascular: positive Regular rate & rhythm and No murmur Abdomen: positive Non-tender and No distention Skin: positive Color nml Extremities: positive Non-tender and No pedal edema Neurologic/Psychiatric: positive Oriented x3 LABS 05/11/25 04:56 05/11/25 04:56 DIAGNOSTIC IMAGING Diagnostic Imaging Results Comments: Chest x-ray: No acute cardiopulmonary process, chronic fibrotic changes. CT abdomen pelvis: Age-indeterminate T11 compression fracture which is new from prior imaging 2022. No source of infection, 2 cm fluid collection along with surgical tract of the left femur consistent with recent repair. Large excluded aneurysm sac, not relevant. Status post aortoiliac stent grafting. Repeat chest x-ray 05/09: No acute cardiopulmonary process. Unchanged from that of admission. SEPSIS Current Stage of Sepsis: Resolved Possible source of Sepsis: Genitourinary FOLLOW UP Follow Up: Dr. Cabrera, orthopedic surgery as scheduled SNF MD as assigned Soha Villegas, PCP upon discharge from [facility]. TIME SPENT Time Spent in Discharge (Minutes): 45 Discharge Plan Discharge Patient Disposition: 03 [facility] DC/Xfer Prescriptions: New tamsulosin 0.4 mg Capsule 0.4 mg PO DAILY Qty: 30 0RF cefepime 2 gram recon soln 2 g IV Q12H ciprofloxacin HCl [Cipro] 500 mg tablet 500 mg PO ONCE Qty: 1 0RF Continued metoprolol succinate 25 MG tablet extended release 24 hr 12.5 mg PO DAILY aspirin 325 MG tablet 325 mg PO DAILYWM 0RF omega-3 acid ethyl esters 1 GM capsule 1 g PO DAILY Qty: 30 0RF betamethasone dipropionate 0.05 % ointment 1 applic TOPICAL Q12H PRN (Reason: rash) Patient Comments: APPLY TOPICALLY TO ITCHY RASH TWICE DAILY FOR UP TO 2 WEEKS NEEDED cetirizine 10 mg capsule 10 mg PO DAILY PRN (Reason: allergy symptoms) bisacodyl [Laxative (bisacodyl)] 10 mg suppository 10 mg WV DAILY PRN (Reason: constipation) Rx Instructions: for day 5 without a bowel movement losartan 25 mg tablet 25 mg PO DAILY polyethylene glycol 3350 [Miralax] 17 gram/dose powder 17 g PO DAILY PRN (Reason: constipation) Rx Instructions: for day 3 without a bowel movement omeprazole 20 mg capsule,delayed release(DR/EC) 20 mg PO DAILY mineral oil Enema 118 ml WV DAILY PRN (Reason: constipation) Rx Instructions: For day 6 without a bowel movement. Discard any unused portion sennosides [senna] 8.6 mg tablet 17.2 mg PO DAILY PRN (Reason: constipation) Rx Instructions: for day without a bowel movement naloxone [Narcan] 4 mg/actuation spray,non-aerosol 1 spray intranasal PRN PRN (Reason: opioid overdose) Rx Instructions: spray 1 dose into ONE nostril; alternate nostrils w each dose until help arrives acetaminophen [8HR Muscle Aches-Pain] 650 mg tablet extended release 650 mg PO Q8H PRN (Reason: pain) cholecalciferol (vitamin D3) 10 mcg (400 unit) tablet 10 mcg PO DAILY Discontinued oxycodone 5 mg tablet 5 mg PO Q4H PRN (Reason: pain) tolterodine 4 mg capsule,extended release 24hr 4 mg PO DAILY senna 8.6 mg capsule 8.6 mg PO DAILY methocarbamol 500 mg tablet 500 mg PO TID Activity Restrictions: Wt Bearing as Tolerated Diet: Regular Health Concerns: Discharge Instructions After Hip Repair and Treatment for Pseudomonas Bacteremia You are being discharged after treatment for a urinary tract infection (UTI) that spread to your bloodstream (bacteremia) with a bacteria calledPseudomonas. This occurred one week after your hip repair surgery.Please follow these instructions to help ensure a safe recovery: Medications Continue taking your prescribed antibiotics exactly as directed. Most patients with complicated UTI and bacteremia who are improving clinically should complete a total of7 days of antibioticsfrom the start of effective therapy, unless your doctor has advised otherwise. If you have any questions about your antibiotics or experience side effects (such as rash, diarrhea, or joint pain), contact your healthcare provider. Wound and Joint Care Keep your surgical wound clean and dry. Watch for signs of infection: increased redness, swelling, warmth, drainage, or pain at the site. Follow your physical therapy and mobility instructions. Use assistive devices (walker, cane) as recommended. Monitoring and Follow-Up Watch for symptoms that may indicate infection is returning: fever, chills, pain or burning with urination, confusion, or new pain/swelling in your hip. Blood tests and urine tests may be scheduled to monitor your recovery. Attend all follow-up appointments with your surgeon And PCP Prevention Drink plenty of fluids unless otherwise instructed. Practice good hygiene, especially after using the bathroom. When to Seek Help Go to the emergency room or call your doctor if you develop high fever, severe pain, confusion, difficulty moving your hip, or any new symptoms that concern you. Additional Notes Most patients do not require prolonged antibiotics beyond the recommended duration unless there are complications or ongoing symptoms. If you have any questions about your recovery, medications, or symptoms, please contact your healthcare provider. Print Language: Trinidadian Patient Instructions: Urinary Tract Infections in Women Stand Alone Forms: SNF Discharge Follow-up Care: Soha Villegas MD [Primary Care Provider, Performance Test Consultant] Report called to and time (if no answer, doc. time of each call attempted): a ttempted 1125pm , 1137pm, 1148pm Vitals documented within 30 minutes of discharge?: Yes
[2025-05-12 12:47] VITALS: BP 171/95; O2SAT 94
== END 2025-05-12 12:48 | DRG 871 ==
LOC: ED 19:48 → MS3 22:02
PROVIDERS: ADMIT Nurse Practitioner Acute Care; ATTEND Nurse Practitioner Acute Care
DX: Z96.642 Presence of left artificial hip joint; J44.9 Chronic obstructive pulmonary disease, unspecified; L29.9 Pruritus, unspecified; Z66 Do not resuscitate; Z79.82 Long term (current) use of aspirin; A41.9 Sepsis, unspecified organism; L50.9 Urticaria, unspecified; R21 Rash and other nonspecific skin eruption; Z11.52 Encounter for screening for COVID-19; Z79.899 Other long term (current) drug therapy; Z87.891 Personal history of nicotine dependence; R33.9 Retention of urine, unspecified; A41.52 Sepsis due to Pseudomonas; R68.2 Dry mouth, unspecified; R13.10 Dysphagia, unspecified; I10 Essential (primary) hypertension; E87.1 Hypo-osmolality and hyponatremia; G93.41 Metabolic encephalopathy; N10 Acute pyelonephritis; R65.20 Severe sepsis without septic shock